=== PATIENT | male | born 1960 | race Caucasian/White ===

== ENCOUNTER → 2016-06-24 | Outpatient (CLI) | payer OTHER ==
[~2016-06-24] MED LIST: AMARYL4 MG PO; ASPIR 8181 M1 PO; CALCIUM CITRAT1 EA14 PO; CELEXA40 MG PO; CENTRUM COMPLE1 EACH PO; DULCOLAX5 MG PO; FIBER THERAPY0.52 GM PO; FLEXERIL10 MG PO; HUMALOG100 UNIT/1 SC; HUMULIN N100 UNITS/ SC; HYDROCHLOROTHIA25 MG PO; KEFLEX500 MG PO; LANTUS 10100 UNITS/ SC; LIPITOR40 MG PO; LISINOPRIL20 MG PO; LYRICA25 MG PO; LYRICA75 MG PO; MORPHINE SULFAT15 M1 PO; NASONEX17 GM BOTH NARES; NORVASC2.5 MG PO; OMEPRAZOLE40 M1 PO; OXYCODONE HCL10 MG PO; PERCOCET 7.51 TABLET PO; SIMVASTATIN40 MG PO
== END | disposition home or self-care (01) ==
LOC: CDC 09:57
DX: R94.31 Abnormal electrocardiogram [ECG] [EKG] (principal); R00.0 Tachycardia, unspecified
CPT/HCPCS: 93000

== ENCOUNTER 2016-08-04 16:42 | Emergency (ER) | payer OTHER ==
[~2016-08-04] VITALS: Ht 188 cm; Wt 103.8 kg
[2016-08-04 17:20] LABS: EOSINOPHIL (%) 3.7 % (0-5); EOSINOPHIL COUNT 0.2 K/uL (0-0.3); HEMATOCRIT 35.1 % (38.0-50.0); IMMATURE GRANULOCYTE (%) 0.2 % (0.0-0.7); IMMATURE GRANULOCYTE COUNT 0.1 K/uL; LYMPHOCYTE COUNT 1.1 K/uL (1.0-2.8); MCHC 35.6 G/DL (30.0-36.0); MCV 84.2 FL (86-99); MONOCYTE (%) 10.8 % (3-12); MONOCYTE COUNT 0.6 K/uL (0-0.8); NEUTROPHIL (%) 64.1 % (45-76); NEUTROPHIL COUNT 3.3 K/uL (1.8-6.4); PLATELET COUNT 130 K/uL (156-360); RBC DIS.WIDTH-CV 12.8 % (11.8-14.6); RBC DIS.WIDTH-SD 38.5 % (39-53); RED BLOOD COUNT 4.17 M/uL (4.00-5.50); WHITE BLOOD COUNT 5.2 K/uL (4.1-10.2)
[2016-08-04 18:32] LABS: ADD MIUA? YES; BILIRUBIN NEGATIVE; BLOOD SMALL; COLOR YELLOW ((YELLOW)); GLUCOSE (STRIP) >=500; KETONES NEGATIVE; LEUKOCYTES NEGATIVE; NITRITE NEGATIVE; PROTEIN (STRIP) >=500; SPECIFIC GRAVITY 1.018 (1.000-1.030); UROBILINOGEN 0.2 MG/DL (0.2-1.0)
[2016-08-04 18:37] LABS: BACTERIA NONE SEEN /HPF; EPITHELIAL CELLS NONE SEEN /HPF; MUCUS TRACE /LPF; RED BLOOD CELLS 0-5 /HPF (0-5); UCUL ADDED? NO; WHITE BLOOD CELLS 0-5 /HPF (0-5)
[2016-08-04 18:40] LABS: CHLORIDE 105 mEq/L (99-109); POTASSIUM 5.1 mEq/L (3.7-5.4); SODIUM 136 mEq/L (136-147)
[2016-08-04 18:42] LABS: GLUCOSE 352 mg/dL (70-99)
[2016-08-04 18:43] LABS: ANION GAP 8 MEQ/L (2-14)
[2016-08-04 18:44] LABS: TOTAL BILIRUBIN 0.3 mg/dL (0.0-1.0)
[2016-08-04 18:46] LABS: ALKALINE PHOSPHATASE 49 IU/L (3-129); GFR ESTIMATE (CALCULATED) 33 mL/min/
[2016-08-04 18:47] LABS: UREA NITROGEN (BUN) 37 mg/dL (9-23)
[2016-08-04 20:50] LABS: POINT-OF-CARE METER ID UU14100415
[2016-08-04 20:54] LABS: CHLORIDE 107 mEq/L (99-109); POTASSIUM 4.8 mEq/L (3.7-5.4); SODIUM 137 mEq/L (136-147)
[2016-08-04 20:55] LABS: GLUCOSE 247 mg/dL (70-99)
[2016-08-04 20:57] LABS: ANION GAP 7 MEQ/L (2-14)
[2016-08-04 20:59] LABS: GFR ESTIMATE (CALCULATED) 39 mL/min/
[2016-08-04 21:00] LABS: UREA NITROGEN (BUN) 37 mg/dL (9-23)
[2016-08-04 22:05] VITALS: BP 147/91
[2016-08-05 08:06] LABS: POINT-OF-CARE METER ID UU14100415
== END 2016-08-04 22:08 | disposition home or self-care (01) ==
LOC: EME 16:42
PROVIDERS: Physician Assistant
DX: E10.65 Type 1 diabetes mellitus with hyperglycemia (principal); N28.9 Disorder of kidney and ureter, unspecified; R80.9 Proteinuria, unspecified; Z79.4 Long term (current) use of insulin; E78.5 Hyperlipidemia, unspecified; I10 Essential (primary) hypertension
CPT/HCPCS: 80048 91; 80053; 81003; 82010; 82948; 85025 91; 99281; 99284; J7030; J7120

== ENCOUNTER 2016-10-16 05:34 | Inpatient (IN) | payer OTHER ==
[~2016-10-16] VITALS: Ht 188 cm; Wt 95.0 kg
[~2016-10-16 05:34] MED LIST changes: +METOPROLOL SUCC25 MG PO; +OMEPRAZOLE20 MG PO; +PRINIVIL10 MG PO; +VITAMIN D5000 UNI1 PO
[2016-10-16 06:18] VITALS: BP 159/83
[2016-10-16 06:28] LABS: HEMATOCRIT 34.2 % (38.0-50.0); MCHC 33.9 G/DL (30.0-36.0); MCV 88.4 FL (86-99); MEAN PLAT.VOLUME 10.5 uM^3 (9.0-12.4); PLATELET COUNT 94 K/uL (156-360); RBC DIS.WIDTH-CV 13.3 % (11.8-14.6); RBC DIS.WIDTH-SD 43.7 % (39-53); RED BLOOD COUNT 3.87 M/uL (4.00-5.50); WHITE BLOOD COUNT 5.2 K/uL (4.1-10.2)
[2016-10-16 06:37] LABS: CHLORIDE 105 mEq/L (99-109); POTASSIUM 5.3 mEq/L (3.7-5.4); SODIUM 138 mEq/L (136-147)
[2016-10-16 06:40] LABS: ANION GAP 8 MEQ/L (2-14)
[2016-10-16 06:43] LABS: GFR ESTIMATE (CALCULATED) 41 mL/min/; UREA NITROGEN (BUN) 46 mg/dL (9-23)
[2016-10-16 06:51] LABS: GLUCOSE 437 mg/dL (70-99)
[2016-10-16 08:46] LABS: Estimated Average Glucose 301 mg/dL (70-123)
[2016-10-16 08:59] LABS: POINT-OF-CARE METER ID UU14174212; POINT-OF-CARE USER ID AHSRSCSLC11
[2016-10-16 09:26] LABS: HEMOGLOBIN A1c (GLYCOHEMOGLOB) 12.1 % HGB (Below 5.7)
[2016-10-16 11:15] LABS: POINT-OF-CARE METER ID UU13113655
[2016-10-16 11:24] LABS: POINT-OF-CARE METER ID UU14174212; POINT-OF-CARE USER ID AHSRSCSLC11
[2016-10-16 11:39] LABS: POINT-OF-CARE METER ID UU13113655; POINT-OF-CARE USER ID ENVKLS06
[2016-10-16 11:59] LABS: POINT-OF-CARE METER ID UU13113675
[2016-10-16 13:09] LABS: POINT-OF-CARE METER ID UU13113675
[2016-10-16 13:21] LABS: HEMATOCRIT 30.1 % (38.0-50.0); MCH 30.9 PG (29.0-34.0); MCHC 34.2 G/DL (30.0-36.0); MCV 90.4 FL (86-99); MEAN PLAT.VOLUME 10.3 uM^3 (9.0-12.4); PLATELET COUNT 76 K/uL (156-360); RBC DIS.WIDTH-CV 13.6 % (11.8-14.6); RBC DIS.WIDTH-SD 45.1 % (39-53); RED BLOOD COUNT 3.33 M/uL (4.00-5.50); WHITE BLOOD COUNT 4.9 K/uL (4.1-10.2)
[2016-10-16 14:00] VITALS: BP 107/69
[2016-10-16 15:35] VITALS: BP 113/66
[2016-10-16 16:23] LABS: POINT-OF-CARE METER ID UU14162508
[2016-10-16 19:42] VITALS: BP 109/65
[2016-10-16 23:55] VITALS: BP 105/62
[2016-10-16 23:57] LABS: POINT-OF-CARE METER ID UU14162508
[2016-10-17 06:01] LABS: POINT-OF-CARE METER ID UU14162508
[2016-10-17 06:59] LABS: HEMATOCRIT 31.5 % (38.0-50.0); MCH 30.5 PG (29.0-34.0); MCHC 33.7 G/DL (30.0-36.0); MCV 90.5 FL (86-99); MEAN PLAT.VOLUME 11.3 uM^3 (9.0-12.4); PLATELET COUNT 65 K/uL (156-360); RBC DIS.WIDTH-CV 13.8 % (11.8-14.6); RBC DIS.WIDTH-SD 45.4 % (39-53); RED BLOOD COUNT 3.48 M/uL (4.00-5.50)
[2016-10-17 07:53] LABS: ANION GAP 8 MEQ/L (2-14); CHLORIDE 106 MEQ/L (99-109); GFR ESTIMATE (CALCULATED) 47 mL/min/; GLUCOSE 348 mg/dL (70-99); MAGNESIUM 1.6 mg/dl (1.3-2.7); POTASSIUM 5.3 MEQ/L (3.7-5.4); SAMPLE HEMOLYSIS CHECK 0; SAMPLE ICTERIC CHECK 0; SAMPLE LIPEMIA CHECK 0; SODIUM 137 MEQ/L (136-147); UREA NITROGEN (BUN) 37 mg/dL (9-23)
[2016-10-17 08:00] VITALS: BP 178/91
[2016-10-17 12:25] VITALS: BP 159/82
[2016-10-17 15:40] VITALS: BP 156/91
[2016-10-17 18:02] LABS: POINT-OF-CARE METER ID UU14162508
[2016-10-17 19:42] VITALS: BP 168/84
[2016-10-17 23:23] VITALS: BP 123/73
[2016-10-18 03:21] VITALS: BP 143/79
[2016-10-18 07:02] VITALS: BP 126/79
[2016-10-18 07:33] LABS: HEMATOCRIT 28.7 % (38.0-50.0); MCH 30.9 PG (29.0-34.0); MCHC 33.8 G/DL (30.0-36.0); MCV 91.4 FL (86-99); MEAN PLAT.VOLUME 10.8 uM^3 (9.0-12.4); PLATELET COUNT 67 K/uL (156-360); RBC DIS.WIDTH-CV 13.7 % (11.8-14.6); RBC DIS.WIDTH-SD 46.1 % (39-53); RED BLOOD COUNT 3.14 M/uL (4.00-5.50); WHITE BLOOD COUNT 7.1 K/uL (4.1-10.2)
[2016-10-18 07:58] LABS: ANION GAP 6 MEQ/L (2-14); CHLORIDE 107 MEQ/L (99-109); GFR ESTIMATE (CALCULATED) > 59 mL/min/; GLUCOSE 267 mg/dL (70-99); MAGNESIUM 1.8 mg/dl (1.3-2.7); POTASSIUM 4.6 MEQ/L (3.7-5.4); SAMPLE HEMOLYSIS CHECK 0; SAMPLE ICTERIC CHECK 0; SAMPLE LIPEMIA CHECK 0; SODIUM 137 MEQ/L (136-147); UREA NITROGEN (BUN) 29 mg/dL (9-23)
[2016-10-18 11:44] VITALS: BP 125/76
[2016-10-18 11:53] LABS: C DIFF TOXIN POSITIVE (NEGATIVE)
[2016-10-18 12:02] LABS: PROBE CHECK PASS
[2016-10-18 16:12] VITALS: BP 34/80
[2016-10-18 18:03] LABS: POINT-OF-CARE METER ID UU14162508
[2016-10-18 19:34] VITALS: BP 142/78
[2016-10-18 22:24] LABS: POINT-OF-CARE METER ID UU14162508
[2016-10-18 22:55] VITALS: BP 150/86
[2016-10-19 03:04] VITALS: BP 152/82
[2016-10-19 06:22] LABS: POINT-OF-CARE METER ID UU14162508
[2016-10-19 07:55] VITALS: BP 164/96
[2016-10-19] MEDS ORDERED: ERGOCALCIF50000 UNIT PO (09:45)
[2016-10-19 11:45] LABS: POINT-OF-CARE METER ID UU14162508
[2016-10-19 14:58] LABS: POINT-OF-CARE METER ID UU14162508
[2016-10-19 17:19] LABS: POINT-OF-CARE METER ID UU14162508
[2016-10-19 19:15] VITALS: BP 130/78
[2016-10-19 22:56] VITALS: BP 152/86
[2016-10-20 06:02] LABS: POINT-OF-CARE METER ID UU14162508
[2016-10-20 07:31] LABS: HEMATOCRIT 31.5 % (38.0-50.0); MCH 31.1 PG (29.0-34.0); MCHC 34.9 G/DL (30.0-36.0); MEAN PLAT.VOLUME 10.3 uM^3 (9.0-12.4); RBC DIS.WIDTH-CV 13.1 % (11.8-14.6); RBC DIS.WIDTH-SD 42.8 % (39-53); RED BLOOD COUNT 3.54 M/uL (4.00-5.50)
[2016-10-20 07:32] LABS: PLATELET COUNT 130 K/uL (156-360); WHITE BLOOD COUNT 10.5 K/uL (4.1-10.2)
[2016-10-20 07:44] LABS: ANION GAP 9 MEQ/L (2-14); CHLORIDE 101 MEQ/L (99-109); GFR ESTIMATE (CALCULATED) > 59 mL/min/; GLUCOSE 238 mg/dL (70-99); POTASSIUM 4.2 MEQ/L (3.7-5.4); SAMPLE HEMOLYSIS CHECK 0; SAMPLE ICTERIC CHECK 0; SAMPLE LIPEMIA CHECK 0; SODIUM 133 MEQ/L (136-147); UREA NITROGEN (BUN) 23 mg/dL (9-23)
[2016-10-20 08:10] VITALS: BP 140/62
[2016-10-20 16:53] VITALS: BP 136/66
[2016-10-20 17:26] LABS: POINT-OF-CARE METER ID UU14162508
[2016-10-20 21:30] LABS: POINT-OF-CARE METER ID UU14162508
[2016-10-21 00:05] VITALS: BP 136/82
[2016-10-21 07:13] LABS: HEMATOCRIT 29.2 % (38.0-50.0); MCH 30.5 PG (29.0-34.0); MCHC 34.6 G/DL (30.0-36.0); MCV 88.2 FL (86-99); MEAN PLAT.VOLUME 9.8 uM^3 (9.0-12.4); PLATELET COUNT 120 K/uL (156-360); RBC DIS.WIDTH-CV 13.1 % (11.8-14.6); RBC DIS.WIDTH-SD 42.4 % (39-53); RED BLOOD COUNT 3.31 M/uL (4.00-5.50)
[2016-10-21 07:32] LABS: POINT-OF-CARE METER ID UU14162508
[2016-10-21 07:34] LABS: ANION GAP 7 MEQ/L (2-14); CHLORIDE 103 MEQ/L (99-109); GFR ESTIMATE (CALCULATED) > 59 mL/min/; GLUCOSE 193 mg/dL (70-99); POTASSIUM 4.2 MEQ/L (3.7-5.4); SAMPLE HEMOLYSIS CHECK 0; SAMPLE ICTERIC CHECK 0; SAMPLE LIPEMIA CHECK 0; SODIUM 132 MEQ/L (136-147); UREA NITROGEN (BUN) 23 mg/dL (9-23)
[2016-10-21 07:37] LABS: WHITE BLOOD COUNT 6.8 K/uL (4.1-10.2)
[2016-10-21 08:10] VITALS: BP 134/80
[2016-10-21] MEDS ORDERED: CHOLESTYRAMINE P4 GM PO (11:29)
[2016-10-21] MEDS ORDERED: FLORASTOR250 MG PO (11:29)
[2016-10-21] MEDS ORDERED: VANCOCIN 250 M250 MG PO (11:29)
[2016-10-21 11:54] LABS: POINT-OF-CARE METER ID UU14162508
== END 2016-10-21 12:16 | disposition home or self-care (01) | DRG 330 ==
LOC: 2SOUTH 05:34 → 2EAST 13:49 → 2SOUTH 14:42 → SDC 15:24 → EDSTATUS 15:25 → 2SOUTH 15:27 → 2EAST 10-21 12:16
PROVIDERS: Anesthesiology; Physician Assistant; Surgery
DX: C18.2 Malignant neoplasm of ascending colon (principal); A04.7 Enterocolitis due to Clostridium difficile; D69.6 Thrombocytopenia, unspecified; E11.65 Type 2 diabetes mellitus with hyperglycemia; K74.60 Unspecified cirrhosis of liver; N28.9 Disorder of kidney and ureter, unspecified; M25.511 Pain in right shoulder; I10 Essential (primary) hypertension; B18.2 Chronic viral hepatitis C; Z87.39 Personal history of other diseases of the musculoskeletal system and connective tissue; Z86.19 Personal history of other infectious and parasitic diseases
CPT/HCPCS: 80048; 82378; 82948; 83036; 83735; 84100; 84999; 85027; 86900; 86901; 86920; 87493; 88309; J0131; J0330; J1100; J1170; J1335; J1815; J2250; J2405; J2710; J3010; J7030; J7050; J7120; P9016; P9045; S0020; S0028

== ENCOUNTER 2016-11-08 17:55 | Inpatient (IN) | payer OTHER ==
[~2016-11-08] VITALS: Ht 188 cm; Wt 114.1 kg
[~2016-11-08 17:55] MED LIST changes: +CHOLESTYRAMINE P4 GM PO; +ERGOCALCIF50000 UNIT PO; +FLORASTOR250 MG PO; +VANCOCIN 250 M250 MG PO
[2016-11-08 18:38] LABS: MCH 28.9 PG (29.0-34.0); MCHC 31.6 G/DL (30.0-36.0); MCV 91.4 FL (86-99); MEAN PLAT.VOLUME 10.6 uM^3 (9.0-12.4); RBC DIS.WIDTH-CV 15.7 % (11.8-14.6); RBC DIS.WIDTH-SD 51.7 % (39-53)
[2016-11-08 18:46] LABS: BASE EXCESS -10.9 mEq/L (-3 to +3); BICARBONATE 13.7 mEq/L (22-26); COMMENTS - BLOOD GASES C+; METHEMOGLOBIN 1.2 % (0-1.5); MODE RA; PCO2 26 mm Hg (35-45); PO2 68 mm Hg (80-100); SITE RB; pH 7.33 (7.35-7.45)
[2016-11-08 18:47] LABS: TOTAL RESP RATE 30 resp/min
[2016-11-08 18:49] LABS: PLATELET COUNT 359 K/uL (156-360); WHITE BLOOD COUNT 13.8 K/uL (4.1-10.2)
[2016-11-08 18:55] LABS: INTER. NORMALIZED RATIO 1.2; PROTHROMBIN TIME 12.6 (9.2-11.2); PTT 28.6 (25-32)
[2016-11-08 19:04] LABS: TROP-I INTERPRETATION NEGATIVE; TROPONIN-I 0.02 ng/mL (0.0-0.30)
[2016-11-08 19:23] LABS: LIPASE 702 U/L (1.0-51.0)
[2016-11-08 20:31] LABS: EOSINOPHIL (%) 0 % (0-5); HEMATOLOGY COMMENT 1 SN; IMMATURE GRANULOCYTE (%) 1.2 % (0.0-0.7); IMMATURE GRANULOCYTE COUNT 0.2 K/uL; INSTRUMENT ABS NEUTROPHIL CT 12.6 K/uL; LYMPHOCYTE COUNT 0.4 K/uL (1.0-2.8); MONOCYTE (%) 4.7 % (3-12); MONOCYTE COUNT 0.7 K/uL (0-0.8); NEUTROPHIL (%) 91.2 % (45-76); NEUTROPHIL COUNT 12.6 K/uL (1.8-6.4); PLAT.SUFFICIENCY ADEQUATE
[2016-11-08 21:39] LABS: CHLORIDE 86 mEq/L (99-109)
[2016-11-08 21:40] LABS: SODIUM 120 mEq/L (136-147)
[2016-11-08 21:43] LABS: ANION GAP 20 MEQ/L (2-14)
[2016-11-08 21:45] LABS: ALKALINE PHOSPHATASE 88 IU/L (3-129); GFR ESTIMATE (CALCULATED) 20 mL/min/
[2016-11-08 21:47] LABS: UREA NITROGEN (BUN) 78 mg/dL (9-23)
[2016-11-08 21:52] LABS: GLUCOSE 817 mg/dL (70-99); POTASSIUM 6.5 mEq/L (3.7-5.4)
[2016-11-08 22:06] LABS: HEMATOCRIT 28.6 % (38.0-50.0); MCHC 31.8 G/DL (30.0-36.0); MCV 91.1 FL (86-99); MEAN PLAT.VOLUME 10.6 uM^3 (9.0-12.4); PLATELET COUNT 313 K/uL (156-360); RBC DIS.WIDTH-CV 15.5 % (11.8-14.6); RBC DIS.WIDTH-SD 50.8 % (39-53); RED BLOOD COUNT 3.14 M/uL (4.00-5.50); WHITE BLOOD COUNT 14.6 K/uL (4.1-10.2)
[2016-11-08 22:15] LABS: CHLORIDE 94 mEq/L (99-109); SODIUM 122 mEq/L (136-147)
[2016-11-08 22:18] LABS: ANION GAP 14 MEQ/L (2-14)
[2016-11-08 22:21] LABS: GFR ESTIMATE (CALCULATED) 22 mL/min/; UREA NITROGEN (BUN) 69 mg/dL (9-23)
[2016-11-08 22:28] LABS: TROP-I INTERPRETATION NEGATIVE; TROPONIN-I 0.01 ng/mL (0.0-0.30)
[2016-11-08 22:30] VITALS: BP 100/40
[2016-11-08 22:30] LABS: GLUCOSE 707 mg/dL (70-99)
[2016-11-08 22:31] LABS: POTASSIUM 6.4 mEq/L (3.7-5.4)
[2016-11-08 22:41] LABS: MAGNESIUM 2.2 mg/dL (1.3-2.7)
[2016-11-08 23:00] VITALS: BP 88/44
[2016-11-09] VITALS (12 sets, daily range): BP systolic 85–159; BP diastolic 44–56
[2016-11-09 01:11] LABS: METH RESISTANT S AUREUS PCR NEGATIVE (NEGATIVE)
[2016-11-09 01:28] LABS: PROBE CHECK PASS; SPECIMEN PROCESSING CONTROL PASS
[2016-11-09 03:01] LABS: CHLORIDE 94 mEq/L (99-109); SODIUM 125 mEq/L (136-147)
[2016-11-09 03:05] LABS: ANION GAP 16 MEQ/L (2-14)
[2016-11-09 03:07] LABS: GFR ESTIMATE (CALCULATED) 24 mL/min/
[2016-11-09 03:08] LABS: UREA NITROGEN (BUN) 73 mg/dL (9-23)
[2016-11-09 03:57] LABS: POTASSIUM 6.4 mEq/L (3.7-5.4)
[2016-11-09 03:59] LABS: GLUCOSE 799 mg/dL (70-99)
[2016-11-09 06:30] LABS: TROP-I INTERPRETATION NEGATIVE; TROPONIN-I 0.03 ng/mL (0.0-0.30)
[2016-11-09 06:44] LABS: HEMATOCRIT 21.5 % (38.0-50.0); MCH 29.9 PG (29.0-34.0); MCHC 33.5 G/DL (30.0-36.0); MCV 89.2 FL (86-99); MEAN PLAT.VOLUME 10.1 uM^3 (9.0-12.4); PLATELET COUNT 302 K/uL (156-360); RBC DIS.WIDTH-SD 48.6 % (39-53); WHITE BLOOD COUNT 12.3 K/uL (4.1-10.2)
[2016-11-09 06:48] LABS: RED BLOOD COUNT 2.41 M/uL (4.00-5.50)
[2016-11-09 07:32] LABS: ANION GAP 11 MEQ/L (2-14); CHLORIDE 95 MEQ/L (99-109); MAGNESIUM 2.2 mg/dl (1.3-2.7); SAMPLE HEMOLYSIS CHECK 0; SAMPLE ICTERIC CHECK 0; SAMPLE LIPEMIA CHECK 0; SODIUM 128 MEQ/L (136-147); UREA NITROGEN (BUN) 67 mg/dL (9-23)
[2016-11-09 07:33] LABS: GFR ESTIMATE (CALCULATED) 30 mL/min/; GLUCOSE 605 mg/dL (70-99); POTASSIUM 5.1 MEQ/L (3.7-5.4)
[2016-11-09 11:07] LABS: ANION GAP 8 MEQ/L (2-14); CHLORIDE 96 MEQ/L (99-109); GFR ESTIMATE (CALCULATED) 33 mL/min/; POTASSIUM 4.6 MEQ/L (3.7-5.4); SAMPLE HEMOLYSIS CHECK 0; SAMPLE ICTERIC CHECK 0; SAMPLE LIPEMIA CHECK 0; SODIUM 130 MEQ/L (136-147); UREA NITROGEN (BUN) 63 mg/dL (9-23)
[2016-11-09 11:14] LABS: GLUCOSE 519 mg/dL (70-99)
[2016-11-09 13:53] LABS: POINT-OF-CARE METER ID UU13113803
[2016-11-09 14:06] LABS: TROP-I INTERPRETATION NEGATIVE; TROPONIN-I 0.12 ng/mL (0.0-0.30)
[2016-11-09 14:27] LABS: HEMATOCRIT 20.9 % (38.0-50.0); MCV 88.9 FL (86-99)
[2016-11-09 14:48] LABS: POINT-OF-CARE METER ID UU13113803
[2016-11-09 14:51] LABS: POINT-OF-CARE METER ID UU13113803
[2016-11-09 14:51] LABS: POINT-OF-CARE METER ID UU13113803; POINT-OF-CARE USER ID 606021424
[2016-11-09 14:51] LABS: POINT-OF-CARE METER ID UU13113803
[2016-11-09 14:51] LABS: POINT-OF-CARE METER ID UU13113803
[2016-11-09 14:51] LABS: POINT-OF-CARE METER ID UU13113803
[2016-11-09 15:21] LABS: ANION GAP 12 MEQ/L (2-14); CHLORIDE 97 MEQ/L (99-109); GFR ESTIMATE (CALCULATED) 37 mL/min/; GLUCOSE 364 mg/dL (70-99); POTASSIUM 4.1 MEQ/L (3.7-5.4); SAMPLE HEMOLYSIS CHECK 0; SAMPLE ICTERIC CHECK 0; SAMPLE LIPEMIA CHECK 1; SODIUM 135 MEQ/L (136-147); UREA NITROGEN (BUN) 58 mg/dL (9-23)
[2016-11-09 16:19] LABS: POINT-OF-CARE METER ID UU13113803
[2016-11-09 17:06] LABS: POINT-OF-CARE METER ID UU13113803
[2016-11-09 18:16] LABS: POINT-OF-CARE METER ID UU13113803
[2016-11-09 19:21] LABS: POINT-OF-CARE METER ID UU13113803; POINT-OF-CARE USER ID 609231305
[2016-11-09 20:17] LABS: POINT-OF-CARE METER ID UU13113803
[2016-11-09 21:15] LABS: POINT-OF-CARE METER ID UU13113803
[2016-11-09 22:46] LABS: CHLORIDE 98 mEq/L (99-109); POTASSIUM 3.6 mEq/L (3.7-5.4); SODIUM 135 mEq/L (136-147)
[2016-11-09 22:47] LABS: MAGNESIUM 1.9 mg/dL (1.3-2.7)
[2016-11-09 22:49] LABS: GLUCOSE 102 mg/dL (70-99)
[2016-11-09 22:50] LABS: ANION GAP 10 MEQ/L (2-14)
[2016-11-09 22:52] LABS: GFR ESTIMATE (CALCULATED) 39 mL/min/
[2016-11-09 22:53] LABS: UREA NITROGEN (BUN) 55 mg/dL (9-23)
[2016-11-09 22:58] LABS: TROP-I INTERPRETATION INDETERMINATE; TROPONIN-I 0.32 ng/mL (0.0-0.30)
[2016-11-09 23:18] LABS: HEMATOCRIT 23.9 % (38.0-50.0); HEMATOLOGY COMMENT 1 SN; MCH 29.2 PG (29.0-34.0); MCHC 33.9 G/DL (30.0-36.0); MCV 86.3 FL (86-99); PLAT.SUFFICIENCY ADEQUATE; PLATELET COUNT UNABLE TO REPORT K/uL (156-360); RBC DIS.WIDTH-CV 14.7 % (11.8-14.6); RBC DIS.WIDTH-SD 45.5 % (39-53); RED BLOOD COUNT 2.77 M/uL (4.00-5.50); WHITE BLOOD COUNT 9.8 K/uL (4.1-10.2)
[2016-11-10] VITALS (14 sets, daily range): BP systolic 98–138; BP diastolic 51–55
[2016-11-10 02:02] LABS: CHLORIDE 98 mEq/L (99-109); SODIUM 134 mEq/L (136-147)
[2016-11-10 02:04] LABS: GLUCOSE 140 mg/dL (70-99)
[2016-11-10 02:05] LABS: ANION GAP 9 MEQ/L (2-14)
[2016-11-10 02:08] LABS: GFR ESTIMATE (CALCULATED) 41 mL/min/
[2016-11-10 02:09] LABS: UREA NITROGEN (BUN) 54 mg/dL (9-23)
[2016-11-10 02:30] LABS: POINT-OF-CARE METER ID UU14162636
[2016-11-10 06:15] LABS: POINT-OF-CARE METER ID UU14162636
[2016-11-10 07:12] LABS: HEMATOCRIT 23.4 % (38.0-50.0); MCH 29.7 PG (29.0-34.0); MCHC 34.2 G/DL (30.0-36.0); RBC DIS.WIDTH-CV 15.3 % (11.8-14.6); RBC DIS.WIDTH-SD 48.2 % (39-53); RED BLOOD COUNT 2.69 M/uL (4.00-5.50); WHITE BLOOD COUNT 5.6 K/uL (4.1-10.2)
[2016-11-10 07:20] LABS: ALKALINE PHOSPHATASE 35 IU/L (3-129); ANION GAP 13 MEQ/L (2-14); CHLORIDE 97 MEQ/L (99-109); GFR ESTIMATE (CALCULATED) 44 mL/min/; GLUCOSE 300 mg/dL (70-99); POTASSIUM 4.6 MEQ/L (3.7-5.4); SAMPLE HEMOLYSIS CHECK 0; SAMPLE ICTERIC CHECK 0; SAMPLE LIPEMIA CHECK 0; SODIUM 135 MEQ/L (136-147); TOTAL BILIRUBIN 0.7 MG/DL (0.0-1.0); UREA NITROGEN (BUN) 51 mg/dL (9-23)
[2016-11-10 07:37] LABS: POINT-OF-CARE METER ID UU14162636
[2016-11-10 08:28] LABS: ABS NEUTROPHIL COUNT 4.9; ANISOCYTOSIS 1+; BASOPHILS 0.9 %; BURR CELLS 2+; EOSINOPHIL ABS CT 0; INSTRUMENT ABS NEUTROPHIL CT 4.8 K/uL; LYMPHOCYTES 6.2 % (15.0-45.0); MACROCYTES 1+; MEAN PLAT.VOLUME 10.1 uM^3 (9.0-12.4); PLATELET CLUMPS PRESENT - PLATELET COUNTS APPEARS DECREASED; POIKILOCYTOSIS 2+; SEG.NEUTROPHILS 56.6 % (46.0-76.0); TARGET CELLS 1+; TEAR DROP CELLS 1+
[2016-11-10 08:42] LABS: PLATELET COUNT 138 K/uL (156-360)
[2016-11-10 09:00] LABS: POINT-OF-CARE METER ID UU13113731
[2016-11-10 09:57] LABS: POINT-OF-CARE METER ID UU13113731
[2016-11-10] MEDS ORDERED: NOVOLOG 10100 UNITS/ SC (10:48)
[2016-11-10 10:51] LABS: POINT-OF-CARE METER ID UU13113731
[2016-11-10 12:09] LABS: POINT-OF-CARE METER ID UU13113731
[2016-11-10 13:05] LABS: POINT-OF-CARE METER ID UU13113731
[2016-11-10 13:50] LABS: POINT-OF-CARE METER ID UU13113731
[2016-11-10 14:53] LABS: POINT-OF-CARE METER ID UU13113731
[2016-11-10 15:48] LABS: POINT-OF-CARE METER ID UU13113731
[2016-11-10 17:00] LABS: POINT-OF-CARE METER ID UU13113731
[2016-11-10 17:58] LABS: POINT-OF-CARE METER ID UU14174217
[2016-11-10 18:40] LABS: POINT-OF-CARE METER ID UU14174217
[2016-11-10 20:01] LABS: POINT-OF-CARE METER ID UU13113731
[2016-11-10 21:12] LABS: POINT-OF-CARE METER ID UU14174217
[2016-11-10 22:09] LABS: POINT-OF-CARE METER ID UU13113731
[2016-11-10 23:08] LABS: POINT-OF-CARE METER ID UU13113731
[2016-11-11 00:18] LABS: POINT-OF-CARE METER ID UU13113731
[2016-11-11 01:47] LABS: POINT-OF-CARE METER ID UU14174217
[2016-11-11 02:01] LABS: POINT-OF-CARE METER ID UU14174217
[2016-11-11 03:16] LABS: POINT-OF-CARE METER ID UU14174217
[2016-11-11 04:16] LABS: POINT-OF-CARE METER ID UU14174217
[2016-11-11 05:09] LABS: POINT-OF-CARE METER ID UU14174217
[2016-11-11 05:13] LABS: CHLORIDE 102 mEq/L (99-109); MAGNESIUM 1.9 mg/dL (1.3-2.7); POTASSIUM 3.9 mEq/L (3.7-5.4); SODIUM 138 mEq/L (136-147)
[2016-11-11 05:15] LABS: GLUCOSE 180 mg/dL (70-99)
[2016-11-11 05:16] LABS: ANION GAP 11 MEQ/L (2-14)
[2016-11-11 05:17] LABS: TOTAL BILIRUBIN 0.9 mg/dL (0.0-1.0)
[2016-11-11 05:19] LABS: GFR ESTIMATE (CALCULATED) 41 mL/min/
[2016-11-11 05:20] LABS: UREA NITROGEN (BUN) 52 mg/dL (9-23)
[2016-11-11 05:22] LABS: ALKALINE PHOSPHATASE 35 IU/L (3-129)
[2016-11-11 06:18] LABS: POINT-OF-CARE METER ID UU14174217
[2016-11-11 06:18] LABS: MCH 28.3 PG (29.0-34.0); MEAN PLAT.VOLUME 9.7 uM^3 (9.0-12.4); PLATELET COUNT 125 K/uL (156-360); RBC DIS.WIDTH-CV 15.6 % (11.8-14.6); RBC DIS.WIDTH-SD 48.4 % (39-53); RED BLOOD COUNT 3.14 M/uL (4.00-5.50); WHITE BLOOD COUNT 4.5 K/uL (4.1-10.2)
[2016-11-11 06:28] LABS: ABS NEUTROPHIL COUNT 4.1; ANISOCYTOSIS 1+; BURR CELLS 2+; EOSINOPHIL ABS CT 0; INSTRUMENT ABS NEUTROPHIL CT 3.9 K/uL; MACROCYTES 1+; PLAT.SUFFICIENCY ADEQUATE; POIKILOCYTOSIS 1+
[2016-11-11 08:44] LABS: POINT-OF-CARE METER ID UU13113803
[2016-11-11 11:09] LABS: POINT-OF-CARE METER ID UU13113803
[2016-11-11 12:07] LABS: POINT-OF-CARE METER ID UU13113803
[2016-11-11 13:19] LABS: POINT-OF-CARE METER ID UU13113803
[2016-11-11 14:06] LABS: POINT-OF-CARE METER ID UU13113803
[2016-11-11 15:16] LABS: POINT-OF-CARE METER ID UU13113803
[2016-11-11 16:33] LABS: POINT-OF-CARE METER ID UU13113803
[2016-11-11 17:30] LABS: POINT-OF-CARE METER ID UU14174217
[2016-11-11 19:30] VITALS: BP 111/62
[2016-11-11 19:40] VITALS: BP 111/62
[2016-11-11 20:24] LABS: POINT-OF-CARE METER ID UU13113803
[2016-11-12] VITALS (7 sets, daily range): BP systolic 106–126; BP diastolic 62–71
[2016-11-12 00:50] LABS: POINT-OF-CARE METER ID UU13113803
[2016-11-12 05:44] LABS: POINT-OF-CARE METER ID UU14174217
[2016-11-12 06:05] LABS: ALKALINE PHOSPHATASE 39 IU/L (3-129); ANION GAP 10 MEQ/L (2-14); CHLORIDE 104 MEQ/L (99-109); GFR ESTIMATE (CALCULATED) 47 mL/min/; GLUCOSE 217 mg/dL (70-99); POTASSIUM 4.3 MEQ/L (3.7-5.4); SAMPLE HEMOLYSIS CHECK 0; SAMPLE ICTERIC CHECK 0; SAMPLE LIPEMIA CHECK 0; SODIUM 139 MEQ/L (136-147); TOTAL BILIRUBIN 0.6 MG/DL (0.0-1.0); UREA NITROGEN (BUN) 51 mg/dL (9-23)
[2016-11-12 06:06] LABS: MAGNESIUM 2.4 mg/dl (1.3-2.7)
[2016-11-12 06:14] LABS: HEMATOCRIT 29.9 % (38.0-50.0); MCH 28.8 PG (29.0-34.0); MCHC 32.4 G/DL (30.0-36.0); MCV 88.7 FL (86-99); MEAN PLAT.VOLUME 10.3 uM^3 (9.0-12.4); PLATELET COUNT 135 K/uL (156-360); RBC DIS.WIDTH-CV 16.3 % (11.8-14.6); RED BLOOD COUNT 3.37 M/uL (4.00-5.50); WHITE BLOOD COUNT 6.8 K/uL (4.1-10.2)
[2016-11-12 06:34] LABS: INTER. NORMALIZED RATIO 1.1; PROTHROMBIN TIME 11.4 (9.2-11.2); PTT 28.8 (25-32)
[2016-11-12 07:33] LABS: EOSINOPHIL (%) 0 % (0-5); IMMATURE GRANULOCYTE COUNT 0.1 K/uL; INSTRUMENT ABS NEUTROPHIL CT 5.8 K/uL; LYMPHOCYTE COUNT 0.3 K/uL (1.0-2.8); MONOCYTE (%) 8.1 % (3-12); MONOCYTE COUNT 0.6 K/uL (0-0.8); NEUTROPHIL (%) 86.3 % (45-76); NEUTROPHIL COUNT 5.8 K/uL (1.8-6.4)
[2016-11-12 12:14] LABS: POINT-OF-CARE METER ID UU13113803
[2016-11-12 18:30] LABS: POINT-OF-CARE METER ID UU13113803
[2016-11-12 22:14] LABS: POINT-OF-CARE METER ID UU13113803
[2016-11-13 00:30] LABS: POINT-OF-CARE METER ID UU13113803
[2016-11-13 05:24] LABS: POINT-OF-CARE METER ID UU14162636
[2016-11-13 05:42] LABS: HEMATOCRIT 27.6 % (38.0-50.0); MCH 30.1 PG (29.0-34.0); MCV 91.4 FL (86-99); MEAN PLAT.VOLUME 10.2 uM^3 (9.0-12.4); PLATELET COUNT 123 K/uL (156-360); RBC DIS.WIDTH-CV 16.5 % (11.8-14.6); RBC DIS.WIDTH-SD 55.1 % (39-53); RED BLOOD COUNT 3.02 M/uL (4.00-5.50); WHITE BLOOD COUNT 5.3 K/uL (4.1-10.2)
[2016-11-13 06:50] LABS: ALKALINE PHOSPHATASE 38 IU/L (3-129); ANION GAP 6 MEQ/L (2-14); CHLORIDE 110 MEQ/L (99-109); GFR ESTIMATE (CALCULATED) 55 mL/min/; MAGNESIUM 2.4 mg/dl (1.3-2.7); POTASSIUM 3.8 MEQ/L (3.7-5.4); SAMPLE HEMOLYSIS CHECK 0; SAMPLE ICTERIC CHECK 0; SAMPLE LIPEMIA CHECK 0; SODIUM 143 MEQ/L (136-147); TOTAL BILIRUBIN 0.6 MG/DL (0.0-1.0); UREA NITROGEN (BUN) 44 mg/dL (9-23)
[2016-11-13 06:54] LABS: GLUCOSE 67 mg/dL (70-99)
[2016-11-13 08:51] LABS: POINT-OF-CARE METER ID UU14162636
[2016-11-13 09:00] VITALS: BP 138/76
[2016-11-13 09:56] LABS: PREALBUMIN 6.8 mg/dL (10-40)
[2016-11-13 10:00] VITALS: BP 138/76
[2016-11-13 11:00] VITALS: BP 140/78
[2016-11-13 11:37] LABS: POINT-OF-CARE METER ID UU14162636
[2016-11-13 12:00] VITALS: BP 140/78
[2016-11-14 05:47] LABS: HEMATOCRIT 30.1 % (38.0-50.0); MCH 29.3 PG (29.0-34.0); MCHC 31.9 G/DL (30.0-36.0); MCV 91.8 FL (86-99); MEAN PLAT.VOLUME 10.1 uM^3 (9.0-12.4); PLATELET COUNT 114 K/uL (156-360); RBC DIS.WIDTH-CV 16.6 % (11.8-14.6); RBC DIS.WIDTH-SD 56.2 % (39-53); RED BLOOD COUNT 3.28 M/uL (4.00-5.50); WHITE BLOOD COUNT 5.8 K/uL (4.1-10.2)
[2016-11-14 06:37] LABS: ALKALINE PHOSPHATASE 45 IU/L (3-129); ANION GAP 13 MEQ/L (2-14); CHLORIDE 107 MEQ/L (99-109); GFR ESTIMATE (CALCULATED) > 59 mL/min/; MAGNESIUM 2.3 mg/dl (1.3-2.7); POTASSIUM 4.4 MEQ/L (3.7-5.4); SAMPLE HEMOLYSIS CHECK 0; SAMPLE ICTERIC CHECK 0; SAMPLE LIPEMIA CHECK 0; SODIUM 140 MEQ/L (136-147); TOTAL BILIRUBIN 0.5 MG/DL (0.0-1.0); TRIGLYCERIDES 278 MG/DL (Normal: <150); UREA NITROGEN (BUN) 45 mg/dL (9-23)
[2016-11-14 06:49] LABS: GLUCOSE 306 mg/dL (70-99)
[2016-11-14 08:35] LABS: BASE EXCESS -1.4 mEq/L (-3 to +3); CARBOXY HGB 1.6 % (0-5); METHEMOGLOBIN 1.3 % (0-1.5); PCO2 34 mm Hg (35-45); pH 7.43 (7.35-7.45)
[2016-11-14 08:36] LABS: BICARBONATE 22.6 mEq/L (22-26); COMMENTS - BLOOD GASES C+; DEVICE VENT; FI02 30 %; MODE SPONT; PEEP 5 CM/H20; PO2 86 mm Hg (80-100); PRES. SUPPORT 10 CM/H2O; SITE ALINE; TOTAL RESP RATE 30 resp/min
[2016-11-14 12:00] VITALS: BP 138/74
[2016-11-14 15:55] LABS: POINT-OF-CARE METER ID UU13113748
[2016-11-14 17:50] LABS: POINT-OF-CARE METER ID UU13113748
[2016-11-14 20:54] LABS: POINT-OF-CARE METER ID UU13113748
[2016-11-14 21:15] LABS: Estimated Average Glucose 249 mg/dL (70-123); HEMOGLOBIN A1c (GLYCOHEMOGLOB) 10.3 % HGB (Below 5.7)
[2016-11-14 21:35] LABS: POINT-OF-CARE METER ID UU13113748
[2016-11-14 21:49] LABS: ANION GAP 10 MEQ/L (2-14); CHLORIDE 113 MEQ/L (99-109); GFR ESTIMATE (CALCULATED) > 59 mL/min/; GLUCOSE 299 mg/dL (70-99); POTASSIUM 3.6 MEQ/L (3.7-5.4); SAMPLE HEMOLYSIS CHECK 0; SAMPLE ICTERIC CHECK 0; SAMPLE LIPEMIA CHECK 0; SODIUM 143 MEQ/L (136-147); UREA NITROGEN (BUN) 51 mg/dL (9-23)
[2016-11-14 22:52] LABS: POINT-OF-CARE METER ID UU13113748
[2016-11-14 23:44] LABS: POINT-OF-CARE METER ID UU13113748
[2016-11-15 00:45] LABS: POINT-OF-CARE METER ID UU13113748
[2016-11-15 01:11] LABS: POTASSIUM 3.5 mEq/L (3.7-5.4); SODIUM 142 mEq/L (136-147)
[2016-11-15 01:12] LABS: CHLORIDE 114 mEq/L (99-109)
[2016-11-15 01:13] LABS: GLUCOSE 258 mg/dL (70-99)
[2016-11-15 01:14] LABS: ANION GAP 7 MEQ/L (2-14)
[2016-11-15 01:16] LABS: GFR ESTIMATE (CALCULATED) > 59 mL/min/
[2016-11-15 01:17] LABS: UREA NITROGEN (BUN) 53 mg/dL (9-23)
[2016-11-15 01:30] VITALS: BP 138/74
[2016-11-15 02:02] LABS: POINT-OF-CARE METER ID UU13113748
[2016-11-15 02:59] LABS: POINT-OF-CARE METER ID UU13113748
[2016-11-15 03:59] LABS: POINT-OF-CARE METER ID UU13113748
[2016-11-15 04:56] LABS: POINT-OF-CARE METER ID UU13113748
[2016-11-15 05:38] LABS: HEMATOCRIT 29.6 % (38.0-50.0); MCH 28.8 PG (29.0-34.0); MCHC 31.8 G/DL (30.0-36.0); MCV 90.8 FL (86-99); MEAN PLAT.VOLUME 10.3 uM^3 (9.0-12.4); PLATELET COUNT 126 K/uL (156-360); RBC DIS.WIDTH-CV 16.2 % (11.8-14.6); RED BLOOD COUNT 3.26 M/uL (4.00-5.50); WHITE BLOOD COUNT 4.3 K/uL (4.1-10.2)
[2016-11-15 05:41] LABS: POINT-OF-CARE METER ID UU13113748
[2016-11-15 06:24] LABS: ANION GAP 5 MEQ/L (2-14); CHLORIDE 116 MEQ/L (99-109); GFR ESTIMATE (CALCULATED) > 59 mL/min/; GLUCOSE 201 mg/dL (70-99); POTASSIUM 3.6 MEQ/L (3.7-5.4); SAMPLE HEMOLYSIS CHECK 0; SAMPLE ICTERIC CHECK 0; SAMPLE LIPEMIA CHECK 0; SODIUM 146 MEQ/L (136-147); UREA NITROGEN (BUN) 51 mg/dL (9-23)
[2016-11-15 06:25] LABS: ALKALINE PHOSPHATASE 42 IU/L (3-129); ANION GAP 5 MEQ/L (2-14); CHLORIDE 116 MEQ/L (99-109); GFR ESTIMATE (CALCULATED) > 59 mL/min/; GLUCOSE 200 mg/dL (70-99); POTASSIUM 3.6 MEQ/L (3.7-5.4); SAMPLE HEMOLYSIS CHECK 0; SAMPLE ICTERIC CHECK 0; SAMPLE LIPEMIA CHECK 0; SODIUM 145 MEQ/L (136-147); TOTAL BILIRUBIN 0.4 MG/DL (0.0-1.0); UREA NITROGEN (BUN) 51 mg/dL (9-23)
[2016-11-15 06:52] LABS: POINT-OF-CARE METER ID UU13113748
[2016-11-15 07:47] LABS: POINT-OF-CARE METER ID UU13113748; POINT-OF-CARE USER ID 606021424
[2016-11-15 10:05] LABS: POINT-OF-CARE METER ID UU13113748
[2016-11-15 10:23] LABS: ANION GAP 5 MEQ/L (2-14); CHLORIDE 116 MEQ/L (99-109); GFR ESTIMATE (CALCULATED) > 59 mL/min/; GLUCOSE 157 mg/dL (70-99); MAGNESIUM 2.1 mg/dl (1.3-2.7); POTASSIUM 3.5 MEQ/L (3.7-5.4); SAMPLE HEMOLYSIS CHECK 0; SAMPLE ICTERIC CHECK 0; SAMPLE LIPEMIA CHECK 0; SODIUM 145 MEQ/L (136-147); UREA NITROGEN (BUN) 52 mg/dL (9-23)
[2016-11-15 11:03] LABS: POINT-OF-CARE METER ID UU13113748
[2016-11-15 11:28] LABS: BASE EXCESS 1.3 mEq/L (-3 to +3); BICARBONATE 23.4 mEq/L (22-26); CARBOXY HGB 1.8 % (0-5); METHEMOGLOBIN 1.9 % (0-1.5); PO2 69 mm Hg (80-100)
[2016-11-15 11:29] LABS: COMMENTS - BLOOD GASES C+; DEVICE VENT; FI02 30 %; MODE TC; PCO2 28 mm Hg (35-45); SITE ALINE; TOTAL RESP RATE 21 resp/min; pH 7.53 (7.35-7.45)
[2016-11-15 11:58] LABS: POINT-OF-CARE METER ID UU13113748
[2016-11-15 12:39] LABS: ANION GAP 9 MEQ/L (2-14); CHLORIDE 117 MEQ/L (99-109); GFR ESTIMATE (CALCULATED) > 59 mL/min/; GLUCOSE 142 mg/dL (70-99); POTASSIUM 3.7 MEQ/L (3.7-5.4); SAMPLE HEMOLYSIS CHECK 0; SAMPLE ICTERIC CHECK 0; SAMPLE LIPEMIA CHECK 0; SODIUM 146 MEQ/L (136-147); UREA NITROGEN (BUN) 50 mg/dL (9-23)
[2016-11-15 13:04] LABS: POINT-OF-CARE METER ID UU13113748
[2016-11-15 14:07] LABS: POINT-OF-CARE METER ID UU13113748
[2016-11-15 15:20] LABS: POINT-OF-CARE METER ID UU13113748
[2016-11-15 15:44] LABS: POINT-OF-CARE METER ID UU13113748
[2016-11-15 16:26] LABS: ANION GAP 5 MEQ/L (2-14); CHLORIDE 118 MEQ/L (99-109); GFR ESTIMATE (CALCULATED) > 59 mL/min/; GLUCOSE 205 mg/dL (70-99); POTASSIUM 3.7 MEQ/L (3.7-5.4); SAMPLE HEMOLYSIS CHECK 0; SAMPLE ICTERIC CHECK 0; SAMPLE LIPEMIA CHECK 0; SODIUM 145 MEQ/L (136-147); UREA NITROGEN (BUN) 52 mg/dL (9-23)
[2016-11-15 16:53] LABS: POINT-OF-CARE METER ID UU13113748
[2016-11-15 18:07] LABS: POINT-OF-CARE METER ID UU13113748
[2016-11-15 19:08] LABS: POINT-OF-CARE METER ID UU13113748; POINT-OF-CARE USER ID 606021424
[2016-11-15 20:13] LABS: POINT-OF-CARE METER ID UU13113748
[2016-11-15 21:15] LABS: POINT-OF-CARE METER ID UU13113748
[2016-11-15 21:28] LABS: ANION GAP 11 MEQ/L (2-14); CHLORIDE 116 MEQ/L (99-109); GFR ESTIMATE (CALCULATED) > 59 mL/min/; GLUCOSE 206 mg/dL (70-99); POTASSIUM 3.5 MEQ/L (3.7-5.4); SAMPLE HEMOLYSIS CHECK 0; SAMPLE ICTERIC CHECK 0; SAMPLE LIPEMIA CHECK 0; SODIUM 148 MEQ/L (136-147); UREA NITROGEN (BUN) 53 mg/dL (9-23)
[2016-11-15 22:29] LABS: POINT-OF-CARE METER ID UU13113748
[2016-11-15 23:53] LABS: POINT-OF-CARE METER ID UU13113748
[2016-11-16 00:18] LABS: POINT-OF-CARE METER ID UU13113748
[2016-11-16 01:37] LABS: POINT-OF-CARE METER ID UU13113748
[2016-11-16 02:32] LABS: POINT-OF-CARE METER ID UU13113748
[2016-11-16 04:40] LABS: POINT-OF-CARE METER ID UU13113748
[2016-11-16 05:38] LABS: HEMATOCRIT 30.1 % (38.0-50.0); MCH 29.4 PG (29.0-34.0); MCHC 32.2 G/DL (30.0-36.0); MCV 91.2 FL (86-99); RBC DIS.WIDTH-CV 16.4 % (11.8-14.6); RBC DIS.WIDTH-SD 55.1 % (39-53); WHITE BLOOD COUNT 7.1 K/uL (4.1-10.2)
[2016-11-16 05:57] LABS: EOSINOPHIL (%) 0 % (0-5); HEMATOLOGY COMMENT 1 SN; IMMATURE GRANULOCYTE (%) 1.3 % (0.0-0.7); IMMATURE GRANULOCYTE COUNT 0.1 K/uL; INSTRUMENT ABS NEUTROPHIL CT 5.8 K/uL; LYMPHOCYTE COUNT 0.5 K/uL (1.0-2.8); MEAN PLAT.VOLUME 10.8 uM^3 (9.0-12.4); MONOCYTE (%) 10.3 % (3-12); MONOCYTE COUNT 0.7 K/uL (0-0.8); NEUTROPHIL (%) 81.7 % (45-76); NEUTROPHIL COUNT 5.8 K/uL (1.8-6.4); PLATELET COUNT 145 K/uL (156-360)
[2016-11-16 06:07] LABS: ALKALINE PHOSPHATASE 45 IU/L (3-129); ANION GAP 9 MEQ/L (2-14); CHLORIDE 118 MEQ/L (99-109); DIRECT BILIRUBIN 0.1 mg/dL (0.0-0.3); GFR ESTIMATE (CALCULATED) > 59 mL/min/; GLUCOSE 150 mg/dL (70-99); POTASSIUM 3.5 MEQ/L (3.7-5.4); SAMPLE HEMOLYSIS CHECK 0; SAMPLE ICTERIC CHECK 0; SAMPLE LIPEMIA CHECK 0; SODIUM 148 MEQ/L (136-147); TOTAL BILIRUBIN 0.4 MG/DL (0.0-1.0); TRIGLYCERIDES 110 MG/DL (Normal: <150); UREA NITROGEN (BUN) 55 mg/dL (9-23)
[2016-11-16 06:34] LABS: POINT-OF-CARE METER ID UU13113748
[2016-11-16 07:28] LABS: PREALBUMIN 10.9 mg/dL (10-40)
[2016-11-16 07:49] LABS: POINT-OF-CARE METER ID UU13113748
[2016-11-16 09:00] VITALS: BP 155/81
[2016-11-16 09:00] LABS: POINT-OF-CARE METER ID UU13113748
[2016-11-16 09:57] LABS: MAGNESIUM 2.2 mg/dl (1.3-2.7)
[2016-11-16 09:58] LABS: POINT-OF-CARE METER ID UU13113748
[2016-11-16 10:51] LABS: POINT-OF-CARE METER ID UU13113748
[2016-11-16 12:06] LABS: POINT-OF-CARE METER ID UU13113748
[2016-11-16 12:08] LABS: POINT-OF-CARE METER ID UU14162636
[2016-11-16 13:00] LABS: POINT-OF-CARE METER ID UU13113731
[2016-11-16 14:12] LABS: POINT-OF-CARE METER ID UU13113748
[2016-11-16 15:14] LABS: POINT-OF-CARE METER ID UU13113748
[2016-11-16 16:15] LABS: POINT-OF-CARE METER ID UU13113748
[2016-11-16 17:21] LABS: POINT-OF-CARE METER ID UU13113748
[2016-11-16 17:56] LABS: C DIFF TOXIN POSITIVE (NEGATIVE)
[2016-11-16 18:00] VITALS: BP 155/81
[2016-11-16 18:00] LABS: PROBE CHECK PASS
[2016-11-16 18:51] LABS: POINT-OF-CARE METER ID UU13113748
[2016-11-16 19:40] LABS: POINT-OF-CARE METER ID UU13113731
[2016-11-16 20:58] LABS: POINT-OF-CARE METER ID UU13113748; POINT-OF-CARE USER ID 609231305
[2016-11-16 21:58] LABS: POINT-OF-CARE METER ID UU13113748
[2016-11-16 23:17] LABS: POINT-OF-CARE METER ID UU13113748
[2016-11-17 00:10] LABS: POINT-OF-CARE METER ID UU13113748
[2016-11-17 00:59] LABS: POINT-OF-CARE METER ID UU13113748
[2016-11-17 02:06] LABS: POINT-OF-CARE METER ID UU13113803
[2016-11-17 03:29] LABS: POINT-OF-CARE METER ID UU13113803
[2016-11-17 04:37] LABS: POINT-OF-CARE METER ID UU13113803
[2016-11-17 05:12] LABS: CHLORIDE 121 mEq/L (99-109); POTASSIUM 3.6 mEq/L (3.7-5.4); SODIUM 150 mEq/L (136-147)
[2016-11-17 05:13] LABS: MAGNESIUM 1.8 mg/dL (1.3-2.7)
[2016-11-17 05:14] LABS: GLUCOSE 169 mg/dL (70-99)
[2016-11-17 05:15] LABS: ANION GAP 10 MEQ/L (2-14)
[2016-11-17 05:18] LABS: GFR ESTIMATE (CALCULATED) > 59 mL/min/
[2016-11-17 05:19] LABS: UREA NITROGEN (BUN) 51 mg/dL (9-23)
[2016-11-17 06:34] LABS: POINT-OF-CARE METER ID UU13113803
[2016-11-17 07:44] LABS: POINT-OF-CARE METER ID UU13113803
[2016-11-17 08:49] LABS: POINT-OF-CARE METER ID UU13113803
[2016-11-17 09:00] VITALS: BP 121/72
[2016-11-17 09:50] LABS: POINT-OF-CARE METER ID UU13113803
[2016-11-17 10:00] VITALS: BP 121/72
[2016-11-17 10:41] LABS: POINT-OF-CARE METER ID UU13113803
[2016-11-17 11:57] LABS: POINT-OF-CARE METER ID UU13113803
[2016-11-17 12:21] LABS: POINT-OF-CARE METER ID UU13113803
[2016-11-17 13:16] LABS: POINT-OF-CARE METER ID UU13113803
[2016-11-17 14:17] LABS: POINT-OF-CARE METER ID UU13113803
[2016-11-17 15:00] VITALS: BP 131/83
[2016-11-17 16:00] VITALS: BP 134/76
[2016-11-17 16:36] LABS: POINT-OF-CARE METER ID UU13113803
[2016-11-17 20:00] VITALS: BP 115/73
[2016-11-17 22:00] VITALS: BP 119/73
[2016-11-17 22:06] LABS: POINT-OF-CARE METER ID UU13113803; POINT-OF-CARE USER ID 609231305
[2016-11-18] VITALS (10 sets, daily range): BP systolic 0–149; BP diastolic 0–87
[2016-11-18 06:00] LABS: POINT-OF-CARE USER ID ENVSME70
[2016-11-18 10:21] LABS: HEMATOCRIT 33.7 % (38.0-50.0); MCH 29.4 PG (29.0-34.0); MCV 91.8 FL (86-99); MEAN PLAT.VOLUME 10.9 uM^3 (9.0-12.4); PLATELET COUNT 165 K/uL (156-360); RBC DIS.WIDTH-SD 56.3 % (39-53); RED BLOOD COUNT 3.67 M/uL (4.00-5.50)
[2016-11-18 10:43] LABS: ANION GAP 9 MEQ/L (2-14); CHLORIDE 117 MEQ/L (99-109); GFR ESTIMATE (CALCULATED) > 59 mL/min/; GLUCOSE 228 mg/dL (70-99); SAMPLE HEMOLYSIS CHECK 0; SAMPLE ICTERIC CHECK 0; SAMPLE LIPEMIA CHECK 0; SODIUM 148 MEQ/L (136-147); UREA NITROGEN (BUN) 60 mg/dL (9-23)
[2016-11-18 12:23] LABS: POINT-OF-CARE METER ID UU13113803
[2016-11-18 17:57] LABS: POINT-OF-CARE METER ID UU14174217
[2016-11-18 20:31] LABS: ANION GAP 10 MEQ/L (2-14); CHLORIDE 117 MEQ/L (99-109); GFR ESTIMATE (CALCULATED) > 59 mL/min/; GLUCOSE 286 mg/dL (70-99); POTASSIUM 3.8 MEQ/L (3.7-5.4); SAMPLE HEMOLYSIS CHECK 0; SAMPLE ICTERIC CHECK 0; SAMPLE LIPEMIA CHECK 0; SODIUM 146 MEQ/L (136-147); UREA NITROGEN (BUN) 61 mg/dL (9-23)
[2016-11-18 22:30] LABS: POINT-OF-CARE METER ID UU13113748; POINT-OF-CARE USER ID PHATLC
[2016-11-19] VITALS (11 sets, daily range): BP systolic 111–143; BP diastolic 64–83
[2016-11-19 06:07] LABS: HEMATOCRIT 31.7 % (38.0-50.0); MCH 28.6 PG (29.0-34.0); MCHC 31.5 G/DL (30.0-36.0); MCV 90.6 FL (86-99); MEAN PLAT.VOLUME 10.4 uM^3 (9.0-12.4); PLATELET COUNT 151 K/uL (156-360); RBC DIS.WIDTH-CV 16.7 % (11.8-14.6); RBC DIS.WIDTH-SD 54.4 % (39-53); WHITE BLOOD COUNT 11.5 K/uL (4.1-10.2)
[2016-11-19 06:32] LABS: ANION GAP 10 MEQ/L (2-14); CHLORIDE 117 MEQ/L (99-109); GFR ESTIMATE (CALCULATED) > 59 mL/min/; GLUCOSE 303 mg/dL (70-99); MAGNESIUM 2.1 mg/dl (1.3-2.7); POTASSIUM 4.1 MEQ/L (3.7-5.4); SAMPLE HEMOLYSIS CHECK 0; SAMPLE ICTERIC CHECK 0; SAMPLE LIPEMIA CHECK 0; SODIUM 147 MEQ/L (136-147); UREA NITROGEN (BUN) 64 mg/dL (9-23)
[2016-11-19 08:36] LABS: POINT-OF-CARE METER ID UU14174217
[2016-11-19 12:04] LABS: POINT-OF-CARE METER ID UU14174217
[2016-11-19 17:15] LABS: POINT-OF-CARE METER ID UU13113748
[2016-11-19 20:48] LABS: ANION GAP 10 MEQ/L (2-14); CHLORIDE 117 MEQ/L (99-109); GFR ESTIMATE (CALCULATED) > 59 mL/min/; GLUCOSE 319 mg/dL (70-99); POTASSIUM 4.8 MEQ/L (3.7-5.4); SAMPLE HEMOLYSIS CHECK 1; SAMPLE ICTERIC CHECK 0; SAMPLE LIPEMIA CHECK 0; SODIUM 144 MEQ/L (136-147); UREA NITROGEN (BUN) 68 mg/dL (9-23)
[2016-11-19 23:33] LABS: POINT-OF-CARE METER ID UU13113748; POINT-OF-CARE USER ID PHATLC
[2016-11-20] VITALS (11 sets, daily range): BP systolic 116–135; BP diastolic 66–83
[2016-11-20 06:37] LABS: HEMATOCRIT 31.3 % (38.0-50.0); MCH 28.6 PG (29.0-34.0); MCHC 31.6 G/DL (30.0-36.0); MCV 90.5 FL (86-99); MEAN PLAT.VOLUME 10.8 uM^3 (9.0-12.4); PLATELET COUNT 164 K/uL (156-360); RBC DIS.WIDTH-CV 16.9 % (11.8-14.6); RBC DIS.WIDTH-SD 54.4 % (39-53); RED BLOOD COUNT 3.46 M/uL (4.00-5.50); WHITE BLOOD COUNT 12.9 K/uL (4.1-10.2)
[2016-11-20 07:04] LABS: ANION GAP 8 MEQ/L (2-14); CHLORIDE 119 MEQ/L (99-109); GFR ESTIMATE (CALCULATED) > 59 mL/min/; MAGNESIUM 2.1 mg/dl (1.3-2.7); SAMPLE HEMOLYSIS CHECK 0; SAMPLE ICTERIC CHECK 0; SAMPLE LIPEMIA CHECK 0; SODIUM 147 MEQ/L (136-147); UREA NITROGEN (BUN) 69 mg/dL (9-23)
[2016-11-20 07:05] LABS: GLUCOSE 134 mg/dL (70-99)
[2016-11-20 12:29] LABS: POINT-OF-CARE METER ID UU14174217
[2016-11-20 17:26] LABS: POINT-OF-CARE METER ID UU14174217
[2016-11-20 20:28] LABS: ANION GAP 8 MEQ/L (2-14); CHLORIDE 118 MEQ/L (99-109); GFR ESTIMATE (CALCULATED) > 59 mL/min/; GLUCOSE 163 mg/dL (70-99); POTASSIUM 4.2 MEQ/L (3.7-5.4); SAMPLE HEMOLYSIS CHECK 0; SAMPLE ICTERIC CHECK 0; SAMPLE LIPEMIA CHECK 0; SODIUM 146 MEQ/L (136-147); UREA NITROGEN (BUN) 73 mg/dL (9-23)
[2016-11-20 21:03] LABS: POINT-OF-CARE METER ID UU14174217
[2016-11-21] VITALS (9 sets, daily range): BP systolic 109–131; BP diastolic 63–77
[2016-11-21 04:56] LABS: HEMATOCRIT 29.7 % (38.0-50.0); MCH 28.6 PG (29.0-34.0); MCHC 31.3 G/DL (30.0-36.0); MCV 91.4 FL (86-99); MEAN PLAT.VOLUME 10.6 uM^3 (9.0-12.4); PLATELET COUNT 133 K/uL (156-360); RBC DIS.WIDTH-SD 55.5 % (39-53); RED BLOOD COUNT 3.25 M/uL (4.00-5.50); WHITE BLOOD COUNT 9.1 K/uL (4.1-10.2)
[2016-11-21 05:10] LABS: CHLORIDE 120 mEq/L (99-109); POTASSIUM 4.3 mEq/L (3.7-5.4); SODIUM 148 mEq/L (136-147)
[2016-11-21 05:14] LABS: ANION GAP 7 MEQ/L (2-14)
[2016-11-21 05:16] LABS: GFR ESTIMATE (CALCULATED) > 59 mL/min/
[2016-11-21 05:17] LABS: UREA NITROGEN (BUN) 75 mg/dL (9-23)
[2016-11-21 05:18] LABS: GLUCOSE 104 mg/dL (70-99)
[2016-11-21 12:20] LABS: POINT-OF-CARE METER ID UU14174217
[2016-11-21 16:02] LABS: POINT-OF-CARE METER ID UU14174217
[2016-11-21 20:33] LABS: ANION GAP 8 MEQ/L (2-14); CHLORIDE 117 MEQ/L (99-109); GFR ESTIMATE (CALCULATED) > 59 mL/min/; GLUCOSE 232 mg/dL (70-99); POTASSIUM 4.4 MEQ/L (3.7-5.4); SAMPLE HEMOLYSIS CHECK 0; SAMPLE ICTERIC CHECK 0; SAMPLE LIPEMIA CHECK 0; SODIUM 143 MEQ/L (136-147); UREA NITROGEN (BUN) 81 mg/dL (9-23)
[2016-11-21 21:34] LABS: POINT-OF-CARE METER ID UU14174217
[2016-11-22] VITALS (10 sets, daily range): BP systolic 99–130; BP diastolic 53–81
[2016-11-22 05:47] LABS: HEMATOCRIT 29.7 % (38.0-50.0); MCH 29.2 PG (29.0-34.0); MCHC 31.6 G/DL (30.0-36.0); MCV 92.2 FL (86-99); MEAN PLAT.VOLUME 11.7 uM^3 (9.0-12.4); PLATELET COUNT 128 K/uL (156-360); RBC DIS.WIDTH-CV 17.2 % (11.8-14.6); RBC DIS.WIDTH-SD 57.1 % (39-53); RED BLOOD COUNT 3.22 M/uL (4.00-5.50); WHITE BLOOD COUNT 7.6 K/uL (4.1-10.2)
[2016-11-22 06:08] LABS: POINT-OF-CARE METER ID UU14174217
[2016-11-22 06:24] LABS: ANION GAP 7 MEQ/L (2-14); CHLORIDE 121 MEQ/L (99-109); GFR ESTIMATE (CALCULATED) > 59 mL/min/; MAGNESIUM 2.3 mg/dl (1.3-2.7); POTASSIUM 4.2 MEQ/L (3.7-5.4); SAMPLE HEMOLYSIS CHECK 0; SAMPLE ICTERIC CHECK 0; SAMPLE LIPEMIA CHECK 0; SODIUM 148 MEQ/L (136-147); UREA NITROGEN (BUN) 75 mg/dL (9-23)
[2016-11-22 06:27] LABS: GLUCOSE 110 mg/dL (70-99)
[2016-11-22 11:58] LABS: POINT-OF-CARE METER ID UU14174217
[2016-11-22 17:56] LABS: BASE EXCESS -3.5 mEq/L (-3 to +3); BICARBONATE 21.4 mEq/L (22-26); CARBOXY HGB 1.8 % (0-5); COMMENTS - BLOOD GASES A+C+; DEVICE NRBM; FI02 100 %; METHEMOGLOBIN 1.7 % (0-1.5); O2 FLOW 15 L/MIN; PCO2 37 mm Hg (35-45); PO2 217 mm Hg (80-100); SITE RR; TOTAL RESP RATE 26 resp/min; pH 7.37 (7.35-7.45)
[2016-11-22 20:16] LABS: TROP-I INTERPRETATION NEGATIVE; TROPONIN-I 0.08 ng/mL (0.0-0.30)
[2016-11-22 20:22] LABS: GLUCOSE 58 mg/dL (70-99)
[2016-11-22 20:35] LABS: ANION GAP 9 MEQ/L (2-14); CHLORIDE 118 MEQ/L (99-109); POTASSIUM 4.6 MEQ/L (3.7-5.4); SAMPLE HEMOLYSIS CHECK 0; SAMPLE ICTERIC CHECK 0; SAMPLE LIPEMIA CHECK 0; SODIUM 148 MEQ/L (136-147)
[2016-11-22 20:40] LABS: POINT-OF-CARE METER ID UU14174216
[2016-11-22 20:43] LABS: GFR ESTIMATE (CALCULATED) > 59 mL/min/; GLUCOSE 59 mg/dL (70-99); UREA NITROGEN (BUN) 69 mg/dL (9-23)
[2016-11-22 21:53] LABS: POINT-OF-CARE METER ID UU14174216
[2016-11-22 23:48] LABS: POINT-OF-CARE METER ID UU14174216
[2016-11-23 01:09] LABS: POINT-OF-CARE METER ID UU14174216
[2016-11-23 02:04] VITALS: BP 119/56
[2016-11-23 05:42] VITALS: BP 109/54
[2016-11-23 06:50] LABS: HEMATOCRIT 28.9 % (38.0-50.0); MCH 29.4 PG (29.0-34.0); MCHC 31.5 G/DL (30.0-36.0); MCV 93.2 FL (86-99); MEAN PLAT.VOLUME 11.3 uM^3 (9.0-12.4); PLATELET COUNT 136 K/uL (156-360); RBC DIS.WIDTH-CV 17.5 % (11.8-14.6); RBC DIS.WIDTH-SD 58.5 % (39-53)
[2016-11-23 08:45] VITALS: BP 122/79
[2016-11-23 11:15] VITALS: BP 124/77
[2016-11-23 16:44] VITALS: BP 120/74
[2016-11-23 17:08] LABS: POINT-OF-CARE METER ID UU13113781
[2016-11-23 19:20] VITALS: BP 143/93
[2016-11-23 20:58] LABS: ANION GAP 9 MEQ/L (2-14); CHLORIDE 120 MEQ/L (99-109); GFR ESTIMATE (CALCULATED) > 59 mL/min/; POTASSIUM 4.6 MEQ/L (3.7-5.4); SAMPLE HEMOLYSIS CHECK 0; SAMPLE ICTERIC CHECK 0; SAMPLE LIPEMIA CHECK 0; SODIUM 146 MEQ/L (136-147); UREA NITROGEN (BUN) 62 mg/dL (9-23)
[2016-11-23 21:06] LABS: GLUCOSE 192 mg/dL (70-99)
[2016-11-23 21:54] LABS: POINT-OF-CARE METER ID UU13113698
[2016-11-24 00:30] VITALS: BP 116/69
[2016-11-24 06:03] LABS: HEMATOCRIT 28.3 % (38.0-50.0); MCH 28.8 PG (29.0-34.0); MCHC 31.1 G/DL (30.0-36.0); MCV 92.5 FL (86-99); MEAN PLAT.VOLUME 11.3 uM^3 (9.0-12.4); PLATELET COUNT 141 K/uL (156-360); RBC DIS.WIDTH-CV 17.6 % (11.8-14.6); RBC DIS.WIDTH-SD 59.1 % (39-53); RED BLOOD COUNT 3.06 M/uL (4.00-5.50); WHITE BLOOD COUNT 7.5 K/uL (4.1-10.2)
[2016-11-24 06:21] VITALS: BP 111/68
[2016-11-24 07:26] VITALS: BP 113/69
[2016-11-24 07:49] LABS: POINT-OF-CARE METER ID UU14174216
[2016-11-24 11:45] VITALS: BP 112/69
[2016-11-24 11:56] LABS: POINT-OF-CARE METER ID UU13113698
[2016-11-24 16:31] LABS: POINT-OF-CARE METER ID UU14174216
[2016-11-24 16:40] VITALS: BP 118/73
[2016-11-24 20:04] VITALS: BP 113/71
[2016-11-24 20:30] LABS: ANION GAP 6 MEQ/L (2-14); CHLORIDE 121 MEQ/L (99-109); SAMPLE HEMOLYSIS CHECK 0; SAMPLE ICTERIC CHECK 0; SAMPLE LIPEMIA CHECK 0; SODIUM 148 MEQ/L (136-147)
[2016-11-24 20:36] LABS: GFR ESTIMATE (CALCULATED) > 59 mL/min/; UREA NITROGEN (BUN) 60 mg/dL (9-23)
[2016-11-24 20:39] LABS: GLUCOSE 60 mg/dL (70-99)
[2016-11-25 00:53] VITALS: BP 125/76
[2016-11-25 05:35] VITALS: BP 127/70
[2016-11-25 06:44] LABS: HEMATOCRIT 28.9 % (38.0-50.0); MCH 29.4 PG (29.0-34.0); MCHC 31.5 G/DL (30.0-36.0); MCV 93.2 FL (86-99); MEAN PLAT.VOLUME 11.1 uM^3 (9.0-12.4); PLATELET COUNT 165 K/uL (156-360); RBC DIS.WIDTH-CV 17.4 % (11.8-14.6); RBC DIS.WIDTH-SD 58.5 % (39-53); WHITE BLOOD COUNT 9.2 K/uL (4.1-10.2)
[2016-11-25 07:36] VITALS: BP 124/68
[2016-11-25 08:10] LABS: POINT-OF-CARE METER ID UU13113781
[2016-11-25 08:13] LABS: POINT-OF-CARE METER ID UU13113781; POINT-OF-CARE USER ID NUTSLF44
[2016-11-25 11:05] VITALS: BP 105/68
[2016-11-25 11:48] LABS: POINT-OF-CARE METER ID UU13113781
[2016-11-25 16:04] VITALS: BP 115/77
[2016-11-25 17:00] LABS: POINT-OF-CARE METER ID UU13113698
[2016-11-25 17:00] LABS: POINT-OF-CARE METER ID UU13113698; POINT-OF-CARE USER ID NUTSLF44
[2016-11-25 19:58] VITALS: BP 108/65
[2016-11-25 20:47] LABS: POINT-OF-CARE METER ID UU13113781
[2016-11-26 00:02] VITALS: BP 114/71
[2016-11-26 04:30] VITALS: BP 109/67
[2016-11-26 05:48] LABS: ALKALINE PHOSPHATASE 70 IU/L (3-129); ANION GAP 6 MEQ/L (2-14); CHLORIDE 121 MEQ/L (99-109); GFR ESTIMATE (CALCULATED) > 59 mL/min/; GLUCOSE 61 mg/dL (70-99); POTASSIUM 4.1 MEQ/L (3.7-5.4); SAMPLE HEMOLYSIS CHECK 0; SAMPLE ICTERIC CHECK 0; SAMPLE LIPEMIA CHECK 0; SODIUM 147 MEQ/L (136-147); TOTAL BILIRUBIN 0.3 MG/DL (0.0-1.0); UREA NITROGEN (BUN) 51 mg/dL (9-23)
[2016-11-26 05:53] LABS: HEMATOCRIT 27.8 % (38.0-50.0); MCH 29.1 PG (29.0-34.0); MCHC 30.6 G/DL (30.0-36.0); MCV 95.2 FL (86-99); MEAN PLAT.VOLUME 11.6 uM^3 (9.0-12.4); PLATELET COUNT 125 K/uL (156-360); RBC DIS.WIDTH-CV 17.3 % (11.8-14.6); RBC DIS.WIDTH-SD 59.8 % (39-53); RED BLOOD COUNT 2.92 M/uL (4.00-5.50); WHITE BLOOD COUNT 6.1 K/uL (4.1-10.2)
[2016-11-26 08:01] VITALS: BP 120/78
[2016-11-26 10:08] LABS: POINT-OF-CARE METER ID UU13113781
[2016-11-26 11:25] LABS: POINT-OF-CARE METER ID UU13113698
[2016-11-26 12:23] VITALS: BP 112/81
[2016-11-26 16:43] VITALS: BP 118/56
[2016-11-26 16:56] LABS: POINT-OF-CARE METER ID UU13113781
[2016-11-26 17:35] LABS: POINT-OF-CARE METER ID UU13113698
[2016-11-26 18:52] LABS: POINT-OF-CARE METER ID UU13113781
[2016-11-26 20:00] VITALS: BP 116/75
[2016-11-26 22:20] LABS: POINT-OF-CARE METER ID UU13113781
[2016-11-26 23:18] LABS: POINT-OF-CARE METER ID UU13113781
[2016-11-27] VITALS (12 sets, daily range): BP systolic 94–130; BP diastolic 58–76
[2016-11-27 04:24] LABS: POINT-OF-CARE METER ID UU14174216
[2016-11-27 06:13] LABS: MCH 28.9 PG (29.0-34.0); MCV 96.4 FL (86-99); PLATELET COUNT 107 K/uL (156-360); RBC DIS.WIDTH-CV 17.2 % (11.8-14.6); RBC DIS.WIDTH-SD 60.7 % (39-53); WHITE BLOOD COUNT 4.8 K/uL (4.1-10.2)
[2016-11-27 08:24] LABS: POINT-OF-CARE METER ID UU14174216; POINT-OF-CARE USER ID ENVKC36
[2016-11-27 12:17] LABS: POINT-OF-CARE METER ID UU13113781; POINT-OF-CARE USER ID ENVKC36
[2016-11-27 14:58] LABS: BASE EXCESS -14.2 mEq/L (-3 to +3); CARBOXY HGB 2.9 % (0-5); METHEMOGLOBIN 1.5 % (0-1.5)
[2016-11-27 15:00] LABS: PCO2 59 mm Hg (35-45); PO2 62 mm Hg (80-100)
[2016-11-27 15:01] LABS: COMMENTS - BLOOD GASES C+; DEVICE VENT 980; FI02 100 %; MECHANICAL RATE 14 resp/min; MODE AC; PEEP 10 CM/H20; SITE LR; TIDAL VOLUME 400 ML; TOTAL RESP RATE 25 resp/min; pH 7.04 (7.35-7.45)
[2016-11-27 15:44] LABS: MCHC 29.4 G/DL (30.0-36.0); MCV 98.7 FL (86-99); MEAN PLAT.VOLUME 11.2 uM^3 (9.0-12.4); PLATELET COUNT 178 K/uL (156-360); RBC DIS.WIDTH-CV 17.4 % (11.8-14.6); RBC DIS.WIDTH-SD 62.4 % (39-53); RED BLOOD COUNT 3.14 M/uL (4.00-5.50); WHITE BLOOD COUNT 12.7 K/uL (4.1-10.2)
[2016-11-27 16:11] LABS: INTER. NORMALIZED RATIO 1.3; PROTHROMBIN TIME 13.3 (9.2-11.2); PTT 36.9 (25-32)
[2016-11-27 16:13] LABS: ALKALINE PHOSPHATASE 89 IU/L (3-129); ANION GAP 11 MEQ/L (2-14); CHLORIDE 120 MEQ/L (99-109); GFR ESTIMATE (CALCULATED) 51 mL/min/; POTASSIUM 4.8 MEQ/L (3.7-5.4); SAMPLE HEMOLYSIS CHECK 0; SAMPLE ICTERIC CHECK 0; SAMPLE LIPEMIA CHECK 0; SODIUM 147 MEQ/L (136-147); UREA NITROGEN (BUN) 51 mg/dL (9-23)
[2016-11-27 16:17] LABS: GLUCOSE 204 mg/dL (70-99); TOTAL BILIRUBIN 0.4 MG/DL (0.0-1.0)
[2016-11-27 16:50] LABS: ADD MIUA? YES; BILIRUBIN NEGATIVE; BLOOD SMALL; COLOR YELLOW ((YELLOW)); GLUCOSE (STRIP) NEGATIVE; KETONES NEGATIVE; LEUKOCYTES SMALL; NITRITE NEGATIVE; PROTEIN (STRIP) 100; SPECIFIC GRAVITY 1.038 (1.000-1.030); UROBILINOGEN 0.2 MG/DL (0.2-1.0)
[2016-11-27 17:02] LABS: METH RESISTANT S AUREUS PCR NEGATIVE (NEGATIVE)
[2016-11-27 17:06] LABS: PROBE CHECK PASS; SPECIMEN PROCESSING CONTROL PASS
[2016-11-27 17:53] LABS: BASE EXCESS -7.2 mEq/L (-3 to +3); BICARBONATE 18.8 mEq/L (22-26); METHEMOGLOBIN 1.8 % (0-1.5); PCO2 39 mm Hg (35-45); PO2 77 mm Hg (80-100)
[2016-11-27 17:54] LABS: COMMENTS - BLOOD GASES C+; DEVICE VENT; FI02 90 %; MECHANICAL RATE 25 resp/min; MODE AC; PEEP 10 CM/H20; SITE LR; TIDAL VOLUME 400 ML; TOTAL RESP RATE 27 resp/min; pH 7.29 (7.35-7.45)
[2016-11-27 18:07] LABS: AMORPHOUS URATES CRYSTALS 4+; BACTERIA 2+ /HPF; EPITHELIAL CELLS NONE SEEN /HPF; MUCUS NONE SEEN /LPF; RED BLOOD CELLS 0-5 /HPF (0-5); UCUL ADDED? YES
[2016-11-27 18:42] LABS: TRIGLYCERIDES 194 MG/DL (Normal: <150)
[2016-11-27 23:30] LABS: POINT-OF-CARE USER ID PHATLC
[2016-11-28] VITALS (24 sets, daily range): BP systolic 94–124; BP diastolic 56–66
[2016-11-28 00:05] LABS: INTER. NORMALIZED RATIO 1.4; PROTHROMBIN TIME 13.9 (9.2-11.2); PTT 29.8 (25-32)
[2016-11-28 04:01] LABS: POINT-OF-CARE METER ID UU14174217; POINT-OF-CARE USER ID PHATLC
[2016-11-28 07:30] LABS: POINT-OF-CARE METER ID UU14174217
[2016-11-28 08:04] LABS: BASE EXCESS -2.7 mEq/L (-3 to +3); BICARBONATE 21.1 mEq/L (22-26); CARBOXY HGB 1.7 % (0-5); METHEMOGLOBIN 1.7 % (0-1.5); PCO2 31 mm Hg (35-45); PO2 104 mm Hg (80-100); pH 7.44 (7.35-7.45)
[2016-11-28 08:05] LABS: COMMENTS - BLOOD GASES C+; DEVICE VENT; FI02 60 %; MECHANICAL RATE 25 resp/min; MODE AC; PEEP 10 CM/H20; SITE LR; TIDAL VOLUME 400 ML; TOTAL RESP RATE 28 resp/min
[2016-11-28 08:55] LABS: ANION GAP 9 MEQ/L (2-14); CHLORIDE 122 MEQ/L (99-109); GFR ESTIMATE (CALCULATED) 47 mL/min/; GLUCOSE 161 mg/dL (70-99); MAGNESIUM 2.4 mg/dl (1.3-2.7); SAMPLE HEMOLYSIS CHECK 0; SAMPLE ICTERIC CHECK 0; SAMPLE LIPEMIA CHECK 0; SODIUM 151 MEQ/L (136-147); UREA NITROGEN (BUN) 55 mg/dL (9-23)
[2016-11-28 09:37] LABS: MCH 28.4 PG (29.0-34.0); MCHC 30.4 G/DL (30.0-36.0); PLATELET COUNT 135 K/uL (156-360); RBC DIS.WIDTH-CV 17.3 % (11.8-14.6); RBC DIS.WIDTH-SD 59.5 % (39-53); RED BLOOD COUNT 2.99 M/uL (4.00-5.50); WHITE BLOOD COUNT 8.5 K/uL (4.1-10.2)
[2016-11-28 09:41] LABS: MCV 93.6 FL (86-99)
[2016-11-28 10:27] LABS: POINT-OF-CARE METER ID UU13113731
[2016-11-28 10:37] LABS: EOSINOPHIL (%) 0.8 % (0-5); EOSINOPHIL COUNT 0.1 K/uL (0-0.3); HEMATOLOGY COMMENT 1 SMEAR COMPATIBLE; IMMATURE GRANULOCYTE (%) 0.6 % (0.0-0.7); IMMATURE GRANULOCYTE COUNT 0.1 K/uL; LYMPHOCYTE COUNT 0.7 K/uL (1.0-2.8); MONOCYTE (%) 7.2 % (3-12); MONOCYTE COUNT 0.6 K/uL (0-0.8); NEUTROPHIL (%) 82.9 % (45-76)
[2016-11-28 21:37] LABS: POINT-OF-CARE METER ID UU14174217
[2016-11-29] VITALS (24 sets, daily range): BP systolic 92–118; BP diastolic 53–73
[2016-11-29 04:30] LABS: POINT-OF-CARE USER ID PHATLC
[2016-11-29 05:24] LABS: BASE EXCESS -4.5 mEq/L (-3 to +3); BICARBONATE 19.6 mEq/L (22-26); CARBOXY HGB 2.3 % (0-5); METHEMOGLOBIN 1.6 % (0-1.5); PCO2 31 mm Hg (35-45); pH 7.41 (7.35-7.45)
[2016-11-29 05:25] LABS: COMMENTS - BLOOD GASES C+; DEVICE 980; FI02 30 %; MECHANICAL RATE 25 resp/min; MODE AC+; PEEP 5 CM/H20; PO2 65 mm Hg (80-100); SITE LR; TIDAL VOLUME 400 ML; TOTAL RESP RATE 27 resp/min
[2016-11-29 06:05] LABS: POINT-OF-CARE METER ID UU13113748
[2016-11-29 06:27] LABS: ANION GAP 9 MEQ/L (2-14); CHLORIDE 121 MEQ/L (99-109); GFR ESTIMATE (CALCULATED) 51 mL/min/; GLUCOSE 171 mg/dL (70-99); POTASSIUM 3.6 MEQ/L (3.7-5.4); SAMPLE HEMOLYSIS CHECK 0; SAMPLE ICTERIC CHECK 0; SAMPLE LIPEMIA CHECK 0; SODIUM 149 MEQ/L (136-147); UREA NITROGEN (BUN) 49 mg/dL (9-23)
[2016-11-29 15:43] LABS: BASE EXCESS -4.1 mEq/L (-3 to +3); BICARBONATE 20.1 mEq/L (22-26); CARBOXY HGB 2.8 % (0-5); METHEMOGLOBIN 1.2 % (0-1.5); PCO2 34 mm Hg (35-45); PO2 75 mm Hg (80-100); SITE RR; pH 7.38 (7.35-7.45)
[2016-11-29 15:44] LABS: COMMENTS - BLOOD GASES A+C+; DEVICE 840; FI02 40 %; MODE TC; PEEP 5 CM/H20; TIDAL VOLUME 488 ML; TOTAL RESP RATE 16 resp/min
[2016-11-29 22:56] LABS: POINT-OF-CARE METER ID UU14162636
[2016-11-30] VITALS (21 sets, daily range): BP systolic 89–129; BP diastolic 51–73
[2016-11-30 06:58] LABS: HEMATOCRIT 25.7 % (38.0-50.0); MCH 28.3 PG (29.0-34.0); MCHC 30.7 G/DL (30.0-36.0); MCV 92.1 FL (86-99); PLATELET COUNT 109 K/uL (156-360); RBC DIS.WIDTH-CV 17.4 % (11.8-14.6); RBC DIS.WIDTH-SD 58.3 % (39-53); RED BLOOD COUNT 2.79 M/uL (4.00-5.50); WHITE BLOOD COUNT 5.1 K/uL (4.1-10.2)
[2016-11-30 10:27] LABS: ANION GAP 9 MEQ/L (2-14); CHLORIDE 123 MEQ/L (99-109); GFR ESTIMATE (CALCULATED) > 59 mL/min/; GLUCOSE 174 mg/dL (70-99); MAGNESIUM 2.2 mg/dl (1.3-2.7); POTASSIUM 4.1 MEQ/L (3.7-5.4); SAMPLE HEMOLYSIS CHECK 0; SAMPLE ICTERIC CHECK 0; SAMPLE LIPEMIA CHECK 0; SODIUM 151 MEQ/L (136-147); UREA NITROGEN (BUN) 43 mg/dL (9-23)
[2016-12-01] VITALS (24 sets, daily range): BP systolic 118–143; BP diastolic 63–79
[2016-12-01 06:01] LABS: ALKALINE PHOSPHATASE 67 IU/L (3-129); ANION GAP 7 MEQ/L (2-14); CHLORIDE 123 MEQ/L (99-109); GFR ESTIMATE (CALCULATED) > 59 mL/min/; GLUCOSE 201 mg/dL (70-99); MAGNESIUM 2.2 mg/dl (1.3-2.7); POTASSIUM 3.8 MEQ/L (3.7-5.4); PREALBUMIN 5.4 mg/dL (10-40); SAMPLE HEMOLYSIS CHECK 0; SAMPLE ICTERIC CHECK 0; SAMPLE LIPEMIA CHECK 0; SODIUM 151 MEQ/L (136-147); TRIGLYCERIDES 104 MG/DL (Normal: <150); UREA NITROGEN (BUN) 44 mg/dL (9-23)
[2016-12-01 06:03] LABS: TOTAL BILIRUBIN 0.3 MG/DL (0.0-1.0)
[2016-12-01 10:25] LABS: POINT-OF-CARE METER ID UU13113731
[2016-12-01 13:06] LABS: BASE EXCESS -3.5 mEq/L (-3 to +3); BICARBONATE 21.4 mEq/L (22-26); CARBOXY HGB 2.1 % (0-5); METHEMOGLOBIN 1.3 % (0-1.5); PCO2 37 mm Hg (35-45); PO2 77 mm Hg (80-100); SITE LR; pH 7.37 (7.35-7.45)
[2016-12-01 13:07] LABS: COMMENTS - BLOOD GASES AC+; DEVICE NASAL CANNULA; O2 FLOW 3 L/MIN; TOTAL RESP RATE 28 resp/min
[2016-12-01 16:18] LABS: POINT-OF-CARE METER ID UU13113731
[2016-12-01 18:47] LABS: POINT-OF-CARE METER ID UU13113731
[2016-12-01 22:22] LABS: POINT-OF-CARE METER ID UU14162636
[2016-12-02] VITALS (26 sets, daily range): BP systolic 99–138; BP diastolic 55–75
[2016-12-02 06:08] LABS: HEMATOCRIT 24.8 % (38.0-50.0); MCH 28.8 PG (29.0-34.0); MCV 92.9 FL (86-99); PLATELET COUNT 96 K/uL (156-360); RBC DIS.WIDTH-SD 60.7 % (39-53); RED BLOOD COUNT 2.67 M/uL (4.00-5.50); WHITE BLOOD COUNT 3.3 K/uL (4.1-10.2)
[2016-12-02 06:39] LABS: ANION GAP 8 MEQ/L (2-14); CHLORIDE 121 MEQ/L (99-109); GFR ESTIMATE (CALCULATED) > 59 mL/min/; POTASSIUM 3.6 MEQ/L (3.7-5.4); SAMPLE HEMOLYSIS CHECK 0; SAMPLE ICTERIC CHECK 0; SAMPLE LIPEMIA CHECK 0; SODIUM 150 MEQ/L (136-147); UREA NITROGEN (BUN) 58 mg/dL (9-23)
[2016-12-02 06:45] LABS: GLUCOSE 421 mg/dL (70-99)
[2016-12-02 09:54] LABS: POINT-OF-CARE METER ID UU14174217
[2016-12-02 12:46] LABS: POINT-OF-CARE METER ID UU14174217
[2016-12-02 14:58] LABS: POINT-OF-CARE METER ID UU14174217
[2016-12-02 16:23] LABS: POINT-OF-CARE METER ID UU14174217
[2016-12-02 18:33] LABS: POINT-OF-CARE METER ID UU14174217
[2016-12-02 20:13] LABS: POINT-OF-CARE METER ID UU14174217
[2016-12-02 23:46] LABS: POINT-OF-CARE METER ID UU14174217
[2016-12-03] VITALS (24 sets, daily range): BP systolic 96–129; BP diastolic 58–74
[2016-12-03 01:35] LABS: POINT-OF-CARE METER ID UU14162636
[2016-12-03 02:53] LABS: POINT-OF-CARE METER ID UU14174217
[2016-12-03 04:29] LABS: POINT-OF-CARE METER ID UU14162636
[2016-12-03 05:46] LABS: ANION GAP 5 MEQ/L (2-14); CHLORIDE 120 MEQ/L (99-109); GFR ESTIMATE (CALCULATED) > 59 mL/min/; GLUCOSE 269 mg/dL (70-99); MAGNESIUM 1.9 mg/dl (1.3-2.7); POTASSIUM 3.6 MEQ/L (3.7-5.4); SAMPLE HEMOLYSIS CHECK 0; SAMPLE ICTERIC CHECK 0; SAMPLE LIPEMIA CHECK 0; SODIUM 149 MEQ/L (136-147); UREA NITROGEN (BUN) 74 mg/dL (9-23)
[2016-12-03 06:35] LABS: POINT-OF-CARE METER ID UU14162636
[2016-12-03 08:55] LABS: POINT-OF-CARE METER ID UU14174217
[2016-12-03 08:55] LABS: POINT-OF-CARE METER ID UU14174217
[2016-12-03 09:04] LABS: POINT-OF-CARE METER ID UU14162636
[2016-12-03 10:59] LABS: POINT-OF-CARE METER ID UU14162636
[2016-12-03 14:19] LABS: POINT-OF-CARE METER ID UU14162636
[2016-12-03 17:53] LABS: POINT-OF-CARE METER ID UU14162636
[2016-12-03 22:46] LABS: POINT-OF-CARE METER ID UU13113748
[2016-12-04] VITALS (23 sets, daily range): BP systolic 116–137; BP diastolic 63–74
[2016-12-04 05:15] LABS: HEMATOCRIT 23.1 % (38.0-50.0); MCH 29.7 PG (29.0-34.0); MCV 92.8 FL (86-99); MEAN PLAT.VOLUME 11.8 uM^3 (9.0-12.4); PLATELET COUNT 93 K/uL (156-360); RBC DIS.WIDTH-CV 17.9 % (11.8-14.6); RBC DIS.WIDTH-SD 59.7 % (39-53); RED BLOOD COUNT 2.49 M/uL (4.00-5.50); WHITE BLOOD COUNT 3.6 K/uL (4.1-10.2)
[2016-12-04 05:43] LABS: ANION GAP 9 MEQ/L (2-14); CHLORIDE 119 MEQ/L (99-109); GFR ESTIMATE (CALCULATED) > 59 mL/min/; GLUCOSE 298 mg/dL (70-99); MAGNESIUM 1.9 mg/dl (1.3-2.7); POTASSIUM 3.9 MEQ/L (3.7-5.4); SAMPLE HEMOLYSIS CHECK 0; SAMPLE ICTERIC CHECK 0; SAMPLE LIPEMIA CHECK 0; SODIUM 151 MEQ/L (136-147); UREA NITROGEN (BUN) 91 mg/dL (9-23)
[2016-12-04 05:51] LABS: EOSINOPHIL (%) 0 % (0-5); HEMATOLOGY COMMENT 1 SMEAR COMPATIBLE; IMMATURE GRANULOCYTE (%) 0.6 % (0.0-0.7); INSTRUMENT ABS NEUTROPHIL CT 3.3 K/uL; LYMPHOCYTE COUNT 0.2 K/uL (1.0-2.8); MONOCYTE (%) 3.4 % (3-12); MONOCYTE COUNT 0.1 K/uL (0-0.8); NEUTROPHIL COUNT 3.3 K/uL (1.8-6.4)
[2016-12-04 21:32] LABS: TYPE OF FLUID PERITONEAL
[2016-12-04 22:28] LABS: POINT-OF-CARE METER ID UU13113748
[2016-12-04 22:51] LABS: ANION GAP 9 MEQ/L (2-14); CHLORIDE 118 MEQ/L (99-109); GFR ESTIMATE (CALCULATED) > 59 mL/min/; GLUCOSE 245 mg/dL (70-99); POTASSIUM 4.3 MEQ/L (3.7-5.4); SAMPLE HEMOLYSIS CHECK 0; SAMPLE ICTERIC CHECK 0; SAMPLE LIPEMIA CHECK 0; SODIUM 152 MEQ/L (136-147); UREA NITROGEN (BUN) 99 mg/dL (9-23)
[2016-12-04 23:20] LABS: BODY FLUID EOSINOPHILS 0 % (0-25); BODY FLUID RBC'S 3000 /MM^3 (0-100); BODY FLUID WBC'S 1665 /MM^3 (0-500); MONONUCLEAR WBC'S 22 %; POLYNUCLEAR WBC'S 79 % (0-25)
[2016-12-05] VITALS (27 sets, daily range): BP systolic 118–146; BP diastolic 63–84
[2016-12-05 06:50] LABS: ANION GAP 7 MEQ/L (2-14); CHLORIDE 116 MEQ/L (99-109); GFR ESTIMATE (CALCULATED) > 59 mL/min/; GLUCOSE 264 mg/dL (70-99); MAGNESIUM 2.2 mg/dl (1.3-2.7); POTASSIUM 4.4 MEQ/L (3.7-5.4); SAMPLE HEMOLYSIS CHECK 0; SAMPLE ICTERIC CHECK 0; SAMPLE LIPEMIA CHECK 0; SODIUM 150 MEQ/L (136-147); UREA NITROGEN (BUN) 104 mg/dL (9-23)
[2016-12-05 07:56] LABS: HEMATOCRIT 23.4 % (38.0-50.0); MCH 28.7 PG (29.0-34.0); MCHC 30.8 G/DL (30.0-36.0); MCV 93.2 FL (86-99); PLATELET COUNT 95 K/uL (156-360); RBC DIS.WIDTH-SD 60.1 % (39-53); RED BLOOD COUNT 2.51 M/uL (4.00-5.50); WHITE BLOOD COUNT 3.1 K/uL (4.1-10.2)
[2016-12-05 08:36] LABS: EOSINOPHIL (%) 0 % (0-5); IMMATURE GRANULOCYTE (%) 0.6 % (0.0-0.7); INSTRUMENT ABS NEUTROPHIL CT 2.7 K/uL; LYMPHOCYTE COUNT 0.2 K/uL (1.0-2.8); MONOCYTE (%) 5.2 % (3-12); MONOCYTE COUNT 0.2 K/uL (0-0.8); NEUTROPHIL (%) 88.4 % (45-76); NEUTROPHIL COUNT 2.7 K/uL (1.8-6.4)
[2016-12-05 14:11] LABS: POINT-OF-CARE METER ID UU13113803
[2016-12-05 18:41] LABS: POINT-OF-CARE METER ID UU13113803
[2016-12-05 22:05] LABS: POINT-OF-CARE METER ID UU13113803
[2016-12-06] VITALS (24 sets, daily range): BP systolic 104–134; BP diastolic 65–85
[2016-12-06 02:32] LABS: POINT-OF-CARE METER ID UU13113803
[2016-12-06 05:06] LABS: POINT-OF-CARE METER ID UU13113803
[2016-12-06 05:40] LABS: POINT-OF-CARE METER ID UU13113803
[2016-12-06 06:34] LABS: ANION GAP 8 MEQ/L (2-14); CHLORIDE 115 MEQ/L (99-109); GFR ESTIMATE (CALCULATED) > 59 mL/min/; MAGNESIUM 2.3 mg/dl (1.3-2.7); POTASSIUM 4.4 MEQ/L (3.7-5.4); SAMPLE HEMOLYSIS CHECK 0; SAMPLE ICTERIC CHECK 0; SAMPLE LIPEMIA CHECK 0; SODIUM 153 MEQ/L (136-147)
[2016-12-06 06:36] LABS: GLUCOSE 73 mg/dL (70-99); UREA NITROGEN (BUN) 103 mg/dL (9-23)
[2016-12-06 07:09] LABS: EOSINOPHIL (%) 0.3 % (0-5); HEMATOCRIT 33.4 % (38.0-50.0); IMMATURE GRANULOCYTE (%) 0.9 % (0.0-0.7); IMMATURE GRANULOCYTE COUNT 0.1 K/uL; INSTRUMENT ABS NEUTROPHIL CT 6.1 K/uL; LYMPHOCYTE COUNT 0.4 K/uL (1.0-2.8); MCH 28.6 PG (29.0-34.0); MCHC 31.1 G/DL (30.0-36.0); MCV 91.8 FL (86-99); MEAN PLAT.VOLUME 12.2 uM^3 (9.0-12.4); MONOCYTE (%) 5.4 % (3-12); MONOCYTE COUNT 0.4 K/uL (0-0.8); NEUTROPHIL (%) 87.5 % (45-76); NEUTROPHIL COUNT 6.1 K/uL (1.8-6.4); PLATELET COUNT 119 K/uL (156-360); RBC DIS.WIDTH-CV 19.1 % (11.8-14.6); RBC DIS.WIDTH-SD 60.9 % (39-53); WHITE BLOOD COUNT 6.9 K/uL (4.1-10.2)
[2016-12-06 07:14] LABS: RED BLOOD COUNT 3.64 M/uL (4.00-5.50)
[2016-12-06 08:16] LABS: POINT-OF-CARE METER ID UU13113803
[2016-12-06 10:43] LABS: POINT-OF-CARE METER ID UU13113803
[2016-12-06 15:12] LABS: POINT-OF-CARE METER ID UU13113803
[2016-12-06 16:52] LABS: POINT-OF-CARE METER ID UU13113803
[2016-12-06 20:14] LABS: POINT-OF-CARE METER ID UU13113803
[2016-12-06 22:10] LABS: POINT-OF-CARE METER ID UU13113803
[2016-12-07] VITALS (24 sets, daily range): BP systolic 86–121; BP diastolic 52–71
[2016-12-07 03:04] LABS: POINT-OF-CARE METER ID UU13113748
[2016-12-07 04:18] LABS: HEMATOCRIT 28.2 % (38.0-50.0); MCH 28.6 PG (29.0-34.0); MCHC 31.2 G/DL (30.0-36.0); MCV 91.6 FL (86-99); MEAN PLAT.VOLUME 11.7 uM^3 (9.0-12.4); PLATELET COUNT 95 K/uL (156-360); RBC DIS.WIDTH-CV 19.9 % (11.8-14.6); RBC DIS.WIDTH-SD 61.4 % (39-53); RED BLOOD COUNT 3.08 M/uL (4.00-5.50); WHITE BLOOD COUNT 5.9 K/uL (4.1-10.2)
[2016-12-07 04:35] LABS: CHLORIDE 117 mEq/L (99-109); POTASSIUM 4.6 mEq/L (3.7-5.4); SODIUM 150 mEq/L (136-147)
[2016-12-07 04:39] LABS: ANION GAP 6 MEQ/L (2-14); TOTAL BILIRUBIN 0.3 mg/dL (0.0-1.0)
[2016-12-07 04:41] LABS: GFR ESTIMATE (CALCULATED) > 59 mL/min/
[2016-12-07 04:43] LABS: DIRECT BILIRUBIN 0.2 mg/dL (0.0-0.3)
[2016-12-07 04:58] LABS: ALKALINE PHOSPHATASE 82 IU/L (3-129)
[2016-12-07 05:01] LABS: GLUCOSE 197 mg/dL (70-99); UREA NITROGEN (BUN) 113 mg/dL (9-23)
[2016-12-07 05:10] LABS: ABS NEUTROPHIL COUNT 5.4; ANISOCYTOSIS 1+; EOSINOPHIL ABS CT 0; LYMPHOCYTES 4.4 % (15.0-45.0); MACROCYTES 1+; OVALOCYTES 1+; SEG.NEUTROPHILS 92.1 % (46.0-76.0)
[2016-12-07 06:19] LABS: POINT-OF-CARE METER ID UU13113748
[2016-12-07 06:31] LABS: PREALBUMIN 16.1 mg/dL (10-40); TRIGLYCERIDES 198 MG/DL (Normal: <150)
[2016-12-07 09:34] LABS: GASTRIC OCCULT BLD. NEGATIVE; INTERNAL CONTROL VALID? YES
[2016-12-07 10:34] LABS: POINT-OF-CARE METER ID UU13113748
[2016-12-07 11:10] LABS: INTER. NORMALIZED RATIO 1.4; PROTHROMBIN TIME 14.3 (9.2-11.2); PTT 30.2 (25-32)
[2016-12-07 14:13] LABS: POINT-OF-CARE METER ID UU13113748
[2016-12-07 17:09] LABS: TYPE OF FLUID THORACENTESIS
[2016-12-07 17:45] LABS: BODY FLUID LDH 181 IU/L; BODY FLUID PROTEIN 3.3 G/DL
[2016-12-07 18:10] LABS: POINT-OF-CARE METER ID UU13113748
[2016-12-07 18:39] LABS: BODY FLUID EOSINOPHILS 0 % (0-25); MONO RAW COUNT 84; MONONUCLEAR WBC'S 84 %; POLY RAW COUNT 16; POLYNUCLEAR WBC'S 16 % (0-25)
[2016-12-07 19:00] LABS: BODY FLUID RBC'S 2000 /MM^3 (0-100); BODY FLUID WBC'S 519 /MM^3 (0-500)
[2016-12-07 22:14] LABS: POINT-OF-CARE METER ID UU13113748
[2016-12-08] VITALS (23 sets, daily range): BP systolic 85–119; BP diastolic 55–76
[2016-12-08 02:38] LABS: POINT-OF-CARE METER ID UU14174217
[2016-12-08 04:39] LABS: HEMATOCRIT 26.3 % (38.0-50.0); MCH 28.4 PG (29.0-34.0); MCHC 30.4 G/DL (30.0-36.0); MCV 93.3 FL (86-99); MEAN PLAT.VOLUME 11.8 uM^3 (9.0-12.4); PLATELET COUNT 78 K/uL (156-360); RBC DIS.WIDTH-CV 19.8 % (11.8-14.6); RED BLOOD COUNT 2.82 M/uL (4.00-5.50); WHITE BLOOD COUNT 4.6 K/uL (4.1-10.2)
[2016-12-08 04:48] LABS: CHLORIDE 117 mEq/L (99-109); POTASSIUM 4.4 mEq/L (3.7-5.4); SODIUM 152 mEq/L (136-147)
[2016-12-08 04:49] LABS: MAGNESIUM 1.9 mg/dL (1.3-2.7)
[2016-12-08 04:50] LABS: GLUCOSE 200 mg/dL (70-99)
[2016-12-08 04:51] LABS: ANION GAP 8 MEQ/L (2-14)
[2016-12-08 04:54] LABS: GFR ESTIMATE (CALCULATED) > 59 mL/min/
[2016-12-08 04:55] LABS: UREA NITROGEN (BUN) 118 mg/dL (9-23)
[2016-12-08 05:34] LABS: EOSINOPHIL (%) 2.6 % (0-5); EOSINOPHIL COUNT 0.1 K/uL (0-0.3); HEMATOLOGY COMMENT 1 SMEAR COMPATIBLE; IMMATURE GRANULOCYTE (%) 0.9 % (0.0-0.7); INSTRUMENT ABS NEUTROPHIL CT 3.8 K/uL; LYMPHOCYTE COUNT 0.3 K/uL (1.0-2.8); MONOCYTE COUNT 0.2 K/uL (0-0.8); NEUTROPHIL COUNT 3.8 K/uL (1.8-6.4)
[2016-12-08 10:14] LABS: POINT-OF-CARE METER ID UU14174217
[2016-12-08 14:13] LABS: POINT-OF-CARE METER ID UU14174217
[2016-12-08 17:15] LABS: POINT-OF-CARE METER ID UU14174217
[2016-12-08 22:52] LABS: POINT-OF-CARE METER ID UU14174217
[2016-12-09] VITALS (25 sets, daily range): BP systolic 0–119; BP diastolic 0–75
[2016-12-09 02:27] LABS: POINT-OF-CARE METER ID UU13113803
[2016-12-09 05:32] LABS: HEMATOCRIT 26.2 % (38.0-50.0); MCH 28.8 PG (29.0-34.0); MCHC 30.5 G/DL (30.0-36.0); MCV 94.2 FL (86-99); MEAN PLAT.VOLUME 12.9 uM^3 (9.0-12.4); PLATELET COUNT 89 K/uL (156-360); RBC DIS.WIDTH-CV 19.5 % (11.8-14.6); RBC DIS.WIDTH-SD 63.2 % (39-53); RED BLOOD COUNT 2.78 M/uL (4.00-5.50); WHITE BLOOD COUNT 3.7 K/uL (4.1-10.2)
[2016-12-09 06:12] LABS: ANION GAP 9 MEQ/L (2-14); CHLORIDE 114 MEQ/L (99-109); GFR ESTIMATE (CALCULATED) > 59 mL/min/; GLUCOSE 164 mg/dL (70-99); MAGNESIUM 2.4 mg/dl (1.3-2.7); POTASSIUM 4.1 MEQ/L (3.7-5.4); SAMPLE HEMOLYSIS CHECK 0; SAMPLE ICTERIC CHECK 0; SAMPLE LIPEMIA CHECK 0; SODIUM 151 MEQ/L (136-147)
[2016-12-09 06:19] LABS: POINT-OF-CARE METER ID UU14174217
[2016-12-09 06:44] LABS: UREA NITROGEN (BUN) 109 mg/dL (9-23)
[2016-12-09 06:49] LABS: EOSINOPHIL (%) 3.5 % (0-5); EOSINOPHIL COUNT 0.1 K/uL (0-0.3); IMMATURE GRANULOCYTE (%) 0.8 % (0.0-0.7); INSTRUMENT ABS NEUTROPHIL CT 2.9 K/uL; LYMPHOCYTE COUNT 0.4 K/uL (1.0-2.8); MONOCYTE (%) 7.5 % (3-12); MONOCYTE COUNT 0.3 K/uL (0-0.8); NEUTROPHIL (%) 78.5 % (45-76); NEUTROPHIL COUNT 2.9 K/uL (1.8-6.4)
[2016-12-09 10:00] LABS: POINT-OF-CARE METER ID UU13113803
[2016-12-09 14:11] LABS: POINT-OF-CARE METER ID UU13113803
[2016-12-09 17:58] LABS: POINT-OF-CARE METER ID UU13113803
[2016-12-09 21:55] LABS: POINT-OF-CARE METER ID UU13113803
[2016-12-10] VITALS (23 sets, daily range): BP systolic 92–120; BP diastolic 53–78
[2016-12-10 06:02] LABS: HEMATOCRIT 24.5 % (38.0-50.0); MCH 29.8 PG (29.0-34.0); MCHC 31.8 G/DL (30.0-36.0); MCV 93.5 FL (86-99); MEAN PLAT.VOLUME 12.8 uM^3 (9.0-12.4); PLATELET COUNT 83 K/uL (156-360); RBC DIS.WIDTH-CV 19.8 % (11.8-14.6); RBC DIS.WIDTH-SD 65.3 % (39-53); RED BLOOD COUNT 2.62 M/uL (4.00-5.50); WHITE BLOOD COUNT 3.5 K/uL (4.1-10.2)
[2016-12-10 06:07] LABS: POINT-OF-CARE METER ID UU13113731
[2016-12-10 06:39] LABS: ANION GAP 7 MEQ/L (2-14); CHLORIDE 116 MEQ/L (99-109); GFR ESTIMATE (CALCULATED) > 59 mL/min/; GLUCOSE 133 mg/dL (70-99); MAGNESIUM 2.5 mg/dl (1.3-2.7); SAMPLE HEMOLYSIS CHECK 0; SAMPLE ICTERIC CHECK 0; SAMPLE LIPEMIA CHECK 0; SODIUM 151 MEQ/L (136-147)
[2016-12-10 06:42] LABS: UREA NITROGEN (BUN) 106 mg/dL (9-23)
[2016-12-10 07:41] LABS: EOSINOPHIL (%) 3.1 % (0-5); EOSINOPHIL COUNT 0.1 K/uL (0-0.3); IMMATURE GRANULOCYTE (%) 0.6 % (0.0-0.7); INSTRUMENT ABS NEUTROPHIL CT 2.7 K/uL; LYMPHOCYTE COUNT 0.3 K/uL (1.0-2.8); MONOCYTE (%) 9.4 % (3-12); MONOCYTE COUNT 0.3 K/uL (0-0.8); NEUTROPHIL (%) 77.5 % (45-76); NEUTROPHIL COUNT 2.7 K/uL (1.8-6.4)
[2016-12-10 13:29] LABS: AMYLASE 43 IU/L (1-118); LIPASE 41 U/L (1.0-51.0)
[2016-12-11] VITALS (28 sets, daily range): BP systolic 81–131; BP diastolic 40–84
[2016-12-11 01:25] LABS: POINT-OF-CARE METER ID UU13113748
[2016-12-11 06:02] LABS: HEMATOCRIT 25.4 % (38.0-50.0); MCH 28.3 PG (29.0-34.0); MCHC 30.3 G/DL (30.0-36.0); MCV 93.4 FL (86-99); MEAN PLAT.VOLUME 12.6 uM^3 (9.0-12.4); PLATELET COUNT 100 K/uL (156-360); RBC DIS.WIDTH-SD 63.5 % (39-53); RED BLOOD COUNT 2.72 M/uL (4.00-5.50); WHITE BLOOD COUNT 4.3 K/uL (4.1-10.2)
[2016-12-11 06:22] LABS: ANION GAP 7 MEQ/L (2-14); CHLORIDE 114 MEQ/L (99-109); GFR ESTIMATE (CALCULATED) > 59 mL/min/; GLUCOSE 186 mg/dL (70-99); MAGNESIUM 2.4 mg/dl (1.3-2.7); POTASSIUM 3.8 MEQ/L (3.7-5.4); SAMPLE HEMOLYSIS CHECK 0; SAMPLE ICTERIC CHECK 0; SAMPLE LIPEMIA CHECK 0; SODIUM 148 MEQ/L (136-147); UREA NITROGEN (BUN) 96 mg/dL (9-23)
[2016-12-11 06:25] LABS: POINT-OF-CARE METER ID UU14174217
[2016-12-11 07:14] LABS: EOSINOPHIL (%) 2.1 % (0-5); EOSINOPHIL COUNT 0.1 K/uL (0-0.3); IMMATURE GRANULOCYTE (%) 0.5 % (0.0-0.7); INSTRUMENT ABS NEUTROPHIL CT 3.4 K/uL; LYMPHOCYTE COUNT 0.4 K/uL (1.0-2.8); MONOCYTE (%) 9.7 % (3-12); MONOCYTE COUNT 0.4 K/uL (0-0.8); NEUTROPHIL (%) 79.2 % (45-76); NEUTROPHIL COUNT 3.4 K/uL (1.8-6.4)
[2016-12-11 15:02] LABS: Heparin Induced Plt Ab Negative (Negative)
[2016-12-11 17:22] LABS: UFH SRA Result Negative (Negative)
[2016-12-11 18:30] LABS: BASE EXCESS 3.5 mEq/L (-3 to +3); BICARBONATE 26.7 mEq/L (22-26); PCO2 35 mm Hg (35-45); PO2 78 mm Hg (80-100); pH 7.49 (7.35-7.45)
[2016-12-11 18:31] LABS: COMMENTS - BLOOD GASES NAC+; DEVICE VENT; FI02 30 %; MODE TC; SITE RR
[2016-12-11 18:32] LABS: PEEP 5 CM/H20; TOTAL RESP RATE 27 resp/min
[2016-12-12] VITALS (20 sets, daily range): BP systolic 85–137; BP diastolic 39–74
[2016-12-12 00:55] LABS: POINT-OF-CARE METER ID UU14174217
[2016-12-12 05:08] LABS: POINT-OF-CARE METER ID UU13113803
[2016-12-12 06:32] LABS: ANION GAP 7 MEQ/L (2-14); CHLORIDE 113 MEQ/L (99-109); GFR ESTIMATE (CALCULATED) > 59 mL/min/; GLUCOSE 123 mg/dL (70-99); MAGNESIUM 2.4 mg/dl (1.3-2.7); POTASSIUM 3.8 MEQ/L (3.7-5.4); SAMPLE HEMOLYSIS CHECK 0; SAMPLE ICTERIC CHECK 0; SAMPLE LIPEMIA CHECK 0; SODIUM 147 MEQ/L (136-147); UREA NITROGEN (BUN) 84 mg/dL (9-23)
[2016-12-12 11:59] LABS: POINT-OF-CARE METER ID UU13113803
[2016-12-12 16:57] LABS: POINT-OF-CARE METER ID UU13113731
[2016-12-12 23:46] LABS: POINT-OF-CARE METER ID UU13113803
[2016-12-13] VITALS (16 sets, daily range): BP systolic 101–136; BP diastolic 49–69
[2016-12-13 06:39] LABS: ANION GAP 6 MEQ/L (2-14); CHLORIDE 115 MEQ/L (99-109); GFR ESTIMATE (CALCULATED) > 59 mL/min/; MAGNESIUM 2.1 mg/dl (1.3-2.7); POTASSIUM 3.7 MEQ/L (3.7-5.4); SAMPLE HEMOLYSIS CHECK 0; SAMPLE ICTERIC CHECK 0; SAMPLE LIPEMIA CHECK 0; SODIUM 147 MEQ/L (136-147); UREA NITROGEN (BUN) 81 mg/dL (9-23)
[2016-12-13 06:40] LABS: GLUCOSE 186 mg/dL (70-99)
[2016-12-13 11:15] LABS: POINT-OF-CARE METER ID UU13113748
[2016-12-13 12:42] LABS: INTER. NORMALIZED RATIO 1.2; PROTHROMBIN TIME 12.2 (9.2-11.2); PTT 29.6 (25-32)
[2016-12-13 17:03] LABS: POINT-OF-CARE METER ID UU13113748
[2016-12-13 23:30] LABS: POINT-OF-CARE METER ID UU13113748; POINT-OF-CARE USER ID LABHNS84
[2016-12-14] VITALS (16 sets, daily range): BP systolic 104–129; BP diastolic 49–73
[2016-12-14 04:58] LABS: POINT-OF-CARE USER ID LABHNS84
[2016-12-14 05:20] LABS: EOSINOPHIL (%) 1.1 % (0-5); HEMATOCRIT 23.9 % (38.0-50.0); IMMATURE GRANULOCYTE (%) 0.3 % (0.0-0.7); INSTRUMENT ABS NEUTROPHIL CT 3.1 K/uL; LYMPHOCYTE COUNT 0.3 K/uL (1.0-2.8); MCHC 30.1 G/DL (30.0-36.0); MEAN PLAT.VOLUME 11.2 uM^3 (9.0-12.4); MONOCYTE (%) 8.6 % (3-12); MONOCYTE COUNT 0.3 K/uL (0-0.8); NEUTROPHIL (%) 81.7 % (45-76); NEUTROPHIL COUNT 3.1 K/uL (1.8-6.4); PLATELET COUNT 127 K/uL (156-360); RBC DIS.WIDTH-CV 18.3 % (11.8-14.6); RBC DIS.WIDTH-SD 61.1 % (39-53); RED BLOOD COUNT 2.57 M/uL (4.00-5.50); WHITE BLOOD COUNT 3.7 K/uL (4.1-10.2)
[2016-12-14 05:54] LABS: ALKALINE PHOSPHATASE 90 IU/L (3-129); ANION GAP 7 MEQ/L (2-14); CHLORIDE 116 MEQ/L (99-109); DIRECT BILIRUBIN 0.1 mg/dL (0.0-0.3); GFR ESTIMATE (CALCULATED) > 59 mL/min/; GLUCOSE 121 mg/dL (70-99); MAGNESIUM 2.1 mg/dl (1.3-2.7); POTASSIUM 3.5 MEQ/L (3.7-5.4); PREALBUMIN 11.3 mg/dL (10-40); SAMPLE HEMOLYSIS CHECK 0; SAMPLE ICTERIC CHECK 0; SAMPLE LIPEMIA CHECK 0; SODIUM 148 MEQ/L (136-147); TOTAL BILIRUBIN 0.3 MG/DL (0.0-1.0); TRIGLYCERIDES 94 MG/DL (Normal: <150); UREA NITROGEN (BUN) 74 mg/dL (9-23)
[2016-12-14 12:08] LABS: POINT-OF-CARE METER ID UU13113731
[2016-12-14 18:07] LABS: POINT-OF-CARE METER ID UU13113731; POINT-OF-CARE USER ID 606021424
[2016-12-15] VITALS (19 sets, daily range): BP systolic 110–133; BP diastolic 57–76
[2016-12-15 00:36] LABS: POINT-OF-CARE METER ID UU13113731
[2016-12-15 05:15] LABS: CHLORIDE 118 mEq/L (99-109); POTASSIUM 3.8 mEq/L (3.7-5.4); SODIUM 147 mEq/L (136-147)
[2016-12-15 05:16] LABS: MAGNESIUM 1.7 mg/dL (1.3-2.7)
[2016-12-15 05:17] LABS: GLUCOSE 135 mg/dL (70-99)
[2016-12-15 05:18] LABS: ANION GAP 7 MEQ/L (2-14)
[2016-12-15 05:21] LABS: GFR ESTIMATE (CALCULATED) > 59 mL/min/
[2016-12-15 05:22] LABS: UREA NITROGEN (BUN) 77 mg/dL (9-23)
[2016-12-15 06:03] LABS: POINT-OF-CARE METER ID UU13113731
[2016-12-15 11:32] LABS: URINE UREA NITROGEN 24705 MG/24 HR
[2016-12-15 12:04] LABS: POINT-OF-CARE METER ID UU13113803
[2016-12-15 17:28] LABS: POINT-OF-CARE METER ID UU13113803
[2016-12-15 23:44] LABS: POINT-OF-CARE METER ID UU13113731
[2016-12-16] VITALS (14 sets, daily range): BP systolic 109–140; BP diastolic 61–81
[2016-12-16 05:47] LABS: HEMATOCRIT 24.5 % (38.0-50.0); MCHC 30.6 G/DL (30.0-36.0); MCV 91.4 FL (86-99); MEAN PLAT.VOLUME 10.8 uM^3 (9.0-12.4); PLATELET COUNT 138 K/uL (156-360); RBC DIS.WIDTH-CV 18.2 % (11.8-14.6); RBC DIS.WIDTH-SD 58.9 % (39-53); RED BLOOD COUNT 2.68 M/uL (4.00-5.50); WHITE BLOOD COUNT 3.5 K/uL (4.1-10.2)
[2016-12-16 06:00] LABS: POINT-OF-CARE METER ID UU13113731
[2016-12-16 06:09] LABS: ANION GAP 8 MEQ/L (2-14); CHLORIDE 116 MEQ/L (99-109); GFR ESTIMATE (CALCULATED) > 59 mL/min/; GLUCOSE 165 mg/dL (70-99); MAGNESIUM 2.1 mg/dl (1.3-2.7); SAMPLE HEMOLYSIS CHECK 0; SAMPLE ICTERIC CHECK 0; SAMPLE LIPEMIA CHECK 0; SODIUM 146 MEQ/L (136-147); UREA NITROGEN (BUN) 65 mg/dL (9-23)
[2016-12-16 12:35] LABS: POINT-OF-CARE METER ID UU13113731
[2016-12-16 17:24] LABS: POINT-OF-CARE METER ID UU13113731
[2016-12-16 23:51] LABS: POINT-OF-CARE METER ID UU13113731
[2016-12-17] VITALS (12 sets, daily range): BP systolic 99–126; BP diastolic 33–74
[2016-12-17 05:26] LABS: POINT-OF-CARE METER ID UU14174217
[2016-12-17 05:59] LABS: ANION GAP 7 MEQ/L (2-14); CHLORIDE 116 MEQ/L (99-109); GFR ESTIMATE (CALCULATED) > 59 mL/min/; MAGNESIUM 2.1 mg/dl (1.3-2.7); POTASSIUM 4.4 MEQ/L (3.7-5.4); SAMPLE HEMOLYSIS CHECK 0; SAMPLE ICTERIC CHECK 0; SAMPLE LIPEMIA CHECK 0; SODIUM 145 MEQ/L (136-147); UREA NITROGEN (BUN) 67 mg/dL (9-23)
[2016-12-17 06:00] LABS: GLUCOSE 250 mg/dL (70-99)
[2016-12-17 11:38] LABS: POINT-OF-CARE METER ID UU14162636
[2016-12-17 14:16] LABS: C DIFF TOXIN NEGATIVE (NEGATIVE)
[2016-12-17 14:18] LABS: PROBE CHECK PASS; SPECIMEN PROCESSING CONTROL PASS
[2016-12-17 17:57] LABS: POINT-OF-CARE METER ID UU14162636
[2016-12-17 20:45] LABS: POINT-OF-CARE METER ID UU14162636; POINT-OF-CARE USER ID PHATLC
[2016-12-18] VITALS (13 sets, daily range): BP systolic 105–132; BP diastolic 47–78
[2016-12-18 01:04] LABS: POINT-OF-CARE METER ID UU14162636; POINT-OF-CARE USER ID PHATLC
[2016-12-18 05:43] LABS: POINT-OF-CARE METER ID UU14162636; POINT-OF-CARE USER ID PHATLC
[2016-12-18 05:51] LABS: HEMATOCRIT 24.5 % (38.0-50.0); MCH 28.7 PG (29.0-34.0); MCV 92.5 FL (86-99); MEAN PLAT.VOLUME 10.9 uM^3 (9.0-12.4); PLATELET COUNT 164 K/uL (156-360); RBC DIS.WIDTH-CV 18.9 % (11.8-14.6); RBC DIS.WIDTH-SD 62.6 % (39-53); RED BLOOD COUNT 2.65 M/uL (4.00-5.50); WHITE BLOOD COUNT 4.3 K/uL (4.1-10.2)
[2016-12-18 06:21] LABS: ANION GAP 7 MEQ/L (2-14); CHLORIDE 119 MEQ/L (99-109); GFR ESTIMATE (CALCULATED) > 59 mL/min/; GLUCOSE 191 mg/dL (70-99); MAGNESIUM 2.2 mg/dl (1.3-2.7); POTASSIUM 4.1 MEQ/L (3.7-5.4); SAMPLE HEMOLYSIS CHECK 0; SAMPLE ICTERIC CHECK 0; SAMPLE LIPEMIA CHECK 0; SODIUM 148 MEQ/L (136-147); UREA NITROGEN (BUN) 66 mg/dL (9-23)
[2016-12-18 12:58] LABS: POINT-OF-CARE METER ID UU14162636
[2016-12-18 17:36] LABS: POINT-OF-CARE METER ID UU14162636
[2016-12-19] VITALS (11 sets, daily range): BP systolic 109–133; BP diastolic 57–82
[2016-12-19 00:59] LABS: POINT-OF-CARE METER ID UU14162636
[2016-12-19 05:41] LABS: POINT-OF-CARE METER ID UU14208751
[2016-12-19 05:52] LABS: HEMATOCRIT 26.7 % (38.0-50.0); MCH 28.9 PG (29.0-34.0); MCHC 30.3 G/DL (30.0-36.0); MCV 95.4 FL (86-99); MEAN PLAT.VOLUME 10.8 uM^3 (9.0-12.4); PLATELET COUNT 163 K/uL (156-360); RBC DIS.WIDTH-CV 19.5 % (11.8-14.6); RBC DIS.WIDTH-SD 65.3 % (39-53); WHITE BLOOD COUNT 4.2 K/uL (4.1-10.2)
[2016-12-19 06:20] LABS: ANION GAP 8 MEQ/L (2-14); CHLORIDE 119 MEQ/L (99-109); GFR ESTIMATE (CALCULATED) > 59 mL/min/; GLUCOSE 140 mg/dL (70-99); MAGNESIUM 2.2 mg/dl (1.3-2.7); POTASSIUM 4.1 MEQ/L (3.7-5.4); SAMPLE HEMOLYSIS CHECK 0; SAMPLE ICTERIC CHECK 0; SAMPLE LIPEMIA CHECK 0; SODIUM 151 MEQ/L (136-147); UREA NITROGEN (BUN) 57 mg/dL (9-23)
[2016-12-19 12:34] LABS: POINT-OF-CARE METER ID UU14162636
[2016-12-19 17:24] LABS: POINT-OF-CARE METER ID UU14162636
[2016-12-20] VITALS (9 sets, daily range): BP systolic 92–120; BP diastolic 61–80
[2016-12-20] LABS: POINT-OF-CARE METER ID UU14208751
[2016-12-20 04:44] LABS: HEMATOCRIT 24.4 % (38.0-50.0); MCH 28.4 PG (29.0-34.0); MCHC 29.9 G/DL (30.0-36.0); MCV 94.9 FL (86-99); PLATELET COUNT 167 K/uL (156-360); RBC DIS.WIDTH-CV 19.6 % (11.8-14.6); RBC DIS.WIDTH-SD 66.2 % (39-53); RED BLOOD COUNT 2.57 M/uL (4.00-5.50)
[2016-12-20 05:02] LABS: CHLORIDE 121 mEq/L (99-109); POTASSIUM 4.1 mEq/L (3.7-5.4); SODIUM 149 mEq/L (136-147)
[2016-12-20 05:03] LABS: MAGNESIUM 1.9 mg/dL (1.3-2.7)
[2016-12-20 05:04] LABS: GLUCOSE 121 mg/dL (70-99)
[2016-12-20 05:06] LABS: ANION GAP 5 MEQ/L (2-14)
[2016-12-20 05:08] LABS: GFR ESTIMATE (CALCULATED) > 59 mL/min/
[2016-12-20 05:09] LABS: UREA NITROGEN (BUN) 55 mg/dL (9-23)
[2016-12-20 05:59] LABS: POINT-OF-CARE METER ID UU13113748
[2016-12-20 11:31] LABS: POINT-OF-CARE METER ID UU13113748
[2016-12-20 17:19] LABS: POINT-OF-CARE METER ID UU13113748
[2016-12-21] VITALS (11 sets, daily range): BP systolic 103–128; BP diastolic 55–73
[2016-12-21 00:18] LABS: POINT-OF-CARE METER ID UU13113748
[2016-12-21 05:54] LABS: HEMATOCRIT 24.4 % (38.0-50.0); MCHC 29.5 G/DL (30.0-36.0); MCV 98.4 FL (86-99); MEAN PLAT.VOLUME 10.5 uM^3 (9.0-12.4); PLATELET COUNT 186 K/uL (156-360); RBC DIS.WIDTH-CV 19.9 % (11.8-14.6); RBC DIS.WIDTH-SD 70.4 % (39-53); RED BLOOD COUNT 2.48 M/uL (4.00-5.50)
[2016-12-21 06:03] LABS: POINT-OF-CARE METER ID UU14174217
[2016-12-21 12:34] LABS: POINT-OF-CARE METER ID UU14174217
[2016-12-21 18:17] LABS: POINT-OF-CARE METER ID UU14162636; POINT-OF-CARE USER ID 606021424
[2016-12-22] VITALS: BP 129/66
[2016-12-22 00:55] LABS: POINT-OF-CARE USER ID RADDRS44
[2016-12-22 04:00] VITALS: BP 127/78
[2016-12-22 06:00] VITALS: BP 115/63
[2016-12-22 06:15] LABS: POINT-OF-CARE METER ID UU14162636; POINT-OF-CARE USER ID RADDRS44
[2016-12-22 06:21] LABS: HEMATOCRIT 24.4 % (38.0-50.0); MCH 28.2 PG (29.0-34.0); MCHC 28.7 G/DL (30.0-36.0); MCV 98.4 FL (86-99); MEAN PLAT.VOLUME 10.5 uM^3 (9.0-12.4); PLATELET COUNT 196 K/uL (156-360); RBC DIS.WIDTH-CV 20.1 % (11.8-14.6); RBC DIS.WIDTH-SD 71.1 % (39-53); RED BLOOD COUNT 2.48 M/uL (4.00-5.50); WHITE BLOOD COUNT 3.6 K/uL (4.1-10.2)
[2016-12-22 07:25] LABS: ALKALINE PHOSPHATASE 87 IU/L (3-129); ANION GAP 8 MEQ/L (2-14); CHLORIDE 120 MEQ/L (99-109); GFR ESTIMATE (CALCULATED) > 59 mL/min/; POTASSIUM 4.3 MEQ/L (3.7-5.4); SAMPLE HEMOLYSIS CHECK 0; SAMPLE ICTERIC CHECK 0; SAMPLE LIPEMIA CHECK 0; SODIUM 151 MEQ/L (136-147); TOTAL BILIRUBIN 0.2 MG/DL (0.0-1.0); UREA NITROGEN (BUN) 64 mg/dL (9-23)
[2016-12-22 07:26] LABS: GLUCOSE 192 mg/dL (70-99)
[2016-12-22 08:00] VITALS: BP 126/67
[2016-12-22 12:00] VITALS: BP 125/69
[2016-12-22 20:25] LABS: POINT-OF-CARE METER ID UU14162636
[2016-12-23 04:57] LABS: HEMATOCRIT 25.3 % (38.0-50.0); MCH 28.4 PG (29.0-34.0); MCHC 29.2 G/DL (30.0-36.0); MCV 96.9 FL (86-99); MEAN PLAT.VOLUME 10.6 uM^3 (9.0-12.4); PLATELET COUNT 199 K/uL (156-360); RBC DIS.WIDTH-CV 20.2 % (11.8-14.6); RBC DIS.WIDTH-SD 71.5 % (39-53); RED BLOOD COUNT 2.61 M/uL (4.00-5.50); WHITE BLOOD COUNT 3.9 K/uL (4.1-10.2)
[2016-12-23 05:09] LABS: CHLORIDE 122 mEq/L (99-109); POTASSIUM 4.5 mEq/L (3.7-5.4); SODIUM 151 mEq/L (136-147)
[2016-12-23 05:11] LABS: GLUCOSE 186 mg/dL (70-99)
[2016-12-23 05:12] LABS: ANION GAP 4 MEQ/L (2-14)
[2016-12-23 05:15] LABS: GFR ESTIMATE (CALCULATED) > 59 mL/min/
[2016-12-23 05:16] LABS: UREA NITROGEN (BUN) 68 mg/dL (9-23)
[2016-12-23 06:01] LABS: POINT-OF-CARE METER ID UU14162636
[2016-12-23 08:00] VITALS: BP 119/60
[2016-12-23 10:00] VITALS: BP 99/60
[2016-12-23 11:52] LABS: POINT-OF-CARE METER ID UU14162636
[2016-12-23 12:00] VITALS: BP 108/63
[2016-12-23 14:00] VITALS: BP 109/62
[2016-12-23 16:00] VITALS: BP 94/60
[2016-12-23 17:05] LABS: POINT-OF-CARE METER ID UU14162636
[2016-12-23 22:26] LABS: POINT-OF-CARE METER ID UU13113748
[2016-12-24 00:34] LABS: POINT-OF-CARE METER ID UU13113748
[2016-12-24 04:26] LABS: POINT-OF-CARE METER ID UU13113748
[2016-12-24 05:13] LABS: HEMATOCRIT 26.6 % (38.0-50.0); MCHC 30.1 G/DL (30.0-36.0); MCV 96.4 FL (86-99); MEAN PLAT.VOLUME 11.1 uM^3 (9.0-12.4); NRBC (%) 0.6 /100 WBC (0-0); PLATELET COUNT 171 K/uL (156-360); RBC DIS.WIDTH-CV 20.4 % (11.8-14.6); RBC DIS.WIDTH-SD 70.9 % (39-53); RED BLOOD COUNT 2.76 M/uL (4.00-5.50); WHITE BLOOD COUNT 3.5 K/uL (4.1-10.2)
[2016-12-24 05:29] LABS: CHLORIDE 122 mEq/L (99-109); SODIUM 150 mEq/L (136-147)
[2016-12-24 05:31] LABS: GLUCOSE 173 mg/dL (70-99)
[2016-12-24 05:32] LABS: ANION GAP 5 MEQ/L (2-14)
[2016-12-24 05:33] LABS: TOTAL BILIRUBIN 0.2 mg/dL (0.0-1.0)
[2016-12-24 05:35] LABS: ALKALINE PHOSPHATASE 91 IU/L (3-129); GFR ESTIMATE (CALCULATED) > 59 mL/min/
[2016-12-24 05:36] LABS: UREA NITROGEN (BUN) 63 mg/dL (9-23)
[2016-12-24 05:37] LABS: DIRECT BILIRUBIN 0.1 mg/dL (0.0-0.3)
[2016-12-24 06:26] LABS: POINT-OF-CARE METER ID UU14174217
[2016-12-24 08:00] VITALS: BP 111/60
[2016-12-24 11:28] LABS: POINT-OF-CARE METER ID UU13113748
[2016-12-24 12:00] VITALS: BP 120/62
[2016-12-24 12:08] LABS: POINT-OF-CARE METER ID UU14174217
[2016-12-24 16:00] VITALS: BP 111/61
[2016-12-24 18:03] LABS: POINT-OF-CARE METER ID UU13113748
[2016-12-24 20:00] VITALS: BP 118/65
[2016-12-24 22:00] VITALS: BP 113/56
[2016-12-24 23:09] LABS: POINT-OF-CARE METER ID UU14174217
[2016-12-25] VITALS (14 sets, daily range): BP systolic 107–123; BP diastolic 58–69
[2016-12-25 00:32] LABS: POINT-OF-CARE METER ID UU14174217
[2016-12-25 06:12] LABS: POINT-OF-CARE METER ID UU13113748
[2016-12-25 06:19] LABS: ANION GAP 4 MEQ/L (2-14); CHLORIDE 116 MEQ/L (99-109); GFR ESTIMATE (CALCULATED) > 59 mL/min/; GLUCOSE 195 mg/dL (70-99); POTASSIUM 4.3 MEQ/L (3.7-5.4); SAMPLE HEMOLYSIS CHECK 0; SAMPLE ICTERIC CHECK 0; SAMPLE LIPEMIA CHECK 0; SODIUM 146 MEQ/L (136-147); UREA NITROGEN (BUN) 57 mg/dL (9-23)
[2016-12-25 06:27] LABS: HEMATOCRIT 23.3 % (38.0-50.0); MCH 28.8 PG (29.0-34.0); MCHC 29.6 G/DL (30.0-36.0); MCV 97.1 FL (86-99); MEAN PLAT.VOLUME 10.7 uM^3 (9.0-12.4); PLATELET COUNT 202 K/uL (156-360); RBC DIS.WIDTH-CV 19.6 % (11.8-14.6); RBC DIS.WIDTH-SD 68.7 % (39-53); WHITE BLOOD COUNT 3.4 K/uL (4.1-10.2)
[2016-12-25 13:58] LABS: POINT-OF-CARE METER ID UU13113731
[2016-12-25 18:31] LABS: POINT-OF-CARE METER ID UU13113731
[2016-12-26] VITALS (7 sets, daily range): BP systolic 113–129; BP diastolic 63–70
[2016-12-26 01:08] LABS: POINT-OF-CARE METER ID UU14208751
[2016-12-26 05:28] LABS: POINT-OF-CARE METER ID UU14208751
[2016-12-26 08:34] LABS: HEMATOCRIT 27.5 % (38.0-50.0); MCH 29.2 PG (29.0-34.0); MCHC 30.9 G/DL (30.0-36.0); MCV 94.5 FL (86-99); PLATELET COUNT 197 K/uL (156-360); RBC DIS.WIDTH-CV 18.7 % (11.8-14.6); RBC DIS.WIDTH-SD 63.8 % (39-53); WHITE BLOOD COUNT 4.1 K/uL (4.1-10.2)
[2016-12-26 08:52] LABS: ANION GAP 3 MEQ/L (2-14); CHLORIDE 111 MEQ/L (99-109); MAGNESIUM 1.9 mg/dl (1.3-2.7); POTASSIUM 4.3 MEQ/L (3.7-5.4); SAMPLE HEMOLYSIS CHECK 0; SAMPLE ICTERIC CHECK 0; SAMPLE LIPEMIA CHECK 0; SODIUM 141 MEQ/L (136-147)
[2016-12-26 08:57] LABS: GFR ESTIMATE (CALCULATED) > 59 mL/min/; GLUCOSE 139 mg/dL (70-99); UREA NITROGEN (BUN) 58 mg/dL (9-23)
[2016-12-26 09:08] LABS: RED BLOOD COUNT 2.91 M/uL (4.00-5.50)
[2016-12-26 13:08] LABS: POINT-OF-CARE METER ID UU14208751
[2016-12-26 18:37] LABS: POINT-OF-CARE METER ID UU13113731
[2016-12-26 20:27] LABS: POINT-OF-CARE METER ID UU13113731; POINT-OF-CARE USER ID PHATLC
[2016-12-26 23:33] LABS: POINT-OF-CARE METER ID UU13113731; POINT-OF-CARE USER ID ENVSME70
[2016-12-27] VITALS (14 sets, daily range): BP systolic 107–138; BP diastolic 51–72
[2016-12-27 05:12] LABS: HEMATOCRIT 25.4 % (38.0-50.0); MCH 28.4 PG (29.0-34.0); MCHC 30.7 G/DL (30.0-36.0); MCV 92.4 FL (86-99); MEAN PLAT.VOLUME 10.4 uM^3 (9.0-12.4); PLATELET COUNT 190 K/uL (156-360); RBC DIS.WIDTH-CV 18.1 % (11.8-14.6); RBC DIS.WIDTH-SD 59.7 % (39-53); RED BLOOD COUNT 2.75 M/uL (4.00-5.50); WHITE BLOOD COUNT 4.6 K/uL (4.1-10.2)
[2016-12-27 05:36] LABS: ANION GAP 3 MEQ/L (2-14); CHLORIDE 109 MEQ/L (99-109); GFR ESTIMATE (CALCULATED) > 59 mL/min/; GLUCOSE 175 mg/dL (70-99); POTASSIUM 4.2 MEQ/L (3.7-5.4); SAMPLE HEMOLYSIS CHECK 0; SAMPLE ICTERIC CHECK 0; SAMPLE LIPEMIA CHECK 0; SODIUM 138 MEQ/L (136-147); UREA NITROGEN (BUN) 52 mg/dL (9-23)
[2016-12-27 05:51] LABS: POINT-OF-CARE METER ID UU13113731; POINT-OF-CARE USER ID PHATLC
[2016-12-27 11:45] LABS: POINT-OF-CARE METER ID UU13113731
[2016-12-27 17:06] LABS: POINT-OF-CARE METER ID UU13113731
[2016-12-27 22:30] LABS: POINT-OF-CARE METER ID UU13113731; POINT-OF-CARE USER ID PHATLC
[2016-12-28] VITALS (18 sets, daily range): BP systolic 106–131; BP diastolic 56–74
[2016-12-28 01:06] LABS: POINT-OF-CARE METER ID UU13113731; POINT-OF-CARE USER ID PHATLC
[2016-12-28 06:06] LABS: POINT-OF-CARE METER ID UU13113731; POINT-OF-CARE USER ID PHATLC
[2016-12-28 06:21] LABS: HEMATOCRIT 25.9 % (38.0-50.0); MCH 27.9 PG (29.0-34.0); MCHC 30.1 G/DL (30.0-36.0); MCV 92.5 FL (86-99); MEAN PLAT.VOLUME 10.4 uM^3 (9.0-12.4); PLATELET COUNT 202 K/uL (156-360); RBC DIS.WIDTH-CV 17.6 % (11.8-14.6); RBC DIS.WIDTH-SD 60.6 % (39-53); WHITE BLOOD COUNT 5.2 K/uL (4.1-10.2)
[2016-12-28 07:35] LABS: ANION GAP 10 MEQ/L (2-14); CHLORIDE 107 MEQ/L (99-109); GFR ESTIMATE (CALCULATED) > 59 mL/min/; POTASSIUM 4.3 MEQ/L (3.7-5.4); SAMPLE HEMOLYSIS CHECK 0; SAMPLE ICTERIC CHECK 0; SAMPLE LIPEMIA CHECK 0; SODIUM 139 MEQ/L (136-147); UREA NITROGEN (BUN) 52 mg/dL (9-23)
[2016-12-28 07:37] LABS: GLUCOSE 119 mg/dL (70-99)
[2016-12-28 12:21] LABS: POINT-OF-CARE METER ID UU14162636
[2016-12-28 17:33] LABS: POINT-OF-CARE METER ID UU14162636
[2016-12-28 20:45] LABS: POINT-OF-CARE METER ID UU13113748
[2016-12-28 23:33] LABS: POINT-OF-CARE METER ID UU14162636
[2016-12-29] VITALS (10 sets, daily range): BP systolic 94–130; BP diastolic 57–71
[2016-12-29 05:36] LABS: HEMATOCRIT 25.5 % (38.0-50.0); MCHC 30.6 G/DL (30.0-36.0); MCV 91.4 FL (86-99); MEAN PLAT.VOLUME 10.4 uM^3 (9.0-12.4); PLATELET COUNT 192 K/uL (156-360); RBC DIS.WIDTH-CV 17.5 % (11.8-14.6); RBC DIS.WIDTH-SD 58.4 % (39-53); RED BLOOD COUNT 2.79 M/uL (4.00-5.50); WHITE BLOOD COUNT 7.1 K/uL (4.1-10.2)
[2016-12-29 06:11] LABS: POINT-OF-CARE METER ID UU14174217
[2016-12-29 06:32] LABS: ALKALINE PHOSPHATASE 85 IU/L (3-129); ANION GAP 7 MEQ/L (2-14); CHLORIDE 104 MEQ/L (99-109); GFR ESTIMATE (CALCULATED) > 59 mL/min/; GLUCOSE 127 mg/dL (70-99); MAGNESIUM 1.9 mg/dl (1.3-2.7); POTASSIUM 4.2 MEQ/L (3.7-5.4); PREALBUMIN 10.8 mg/dL (10-40); SAMPLE HEMOLYSIS CHECK 0; SAMPLE ICTERIC CHECK 0; SAMPLE LIPEMIA CHECK 0; SODIUM 135 MEQ/L (136-147); TOTAL BILIRUBIN 0.2 MG/DL (0.0-1.0); UREA NITROGEN (BUN) 50 mg/dL (9-23)
[2016-12-29 11:58] LABS: POINT-OF-CARE METER ID UU14174217
[2016-12-29 18:08] LABS: POINT-OF-CARE METER ID UU14174217
[2016-12-29 21:15] LABS: POINT-OF-CARE METER ID UU14174217
[2016-12-30] VITALS (9 sets, daily range): BP systolic 105–132; BP diastolic 57–73
[2016-12-30 01:07] LABS: POINT-OF-CARE METER ID UU14174217
[2016-12-30 06:12] LABS: HEMATOCRIT 25.1 % (38.0-50.0); MCH 28.5 PG (29.0-34.0); MCHC 31.5 G/DL (30.0-36.0); MCV 90.6 FL (86-99); MEAN PLAT.VOLUME 10.2 uM^3 (9.0-12.4); PLATELET COUNT 191 K/uL (156-360); RBC DIS.WIDTH-CV 17.8 % (11.8-14.6); RBC DIS.WIDTH-SD 58.4 % (39-53); RED BLOOD COUNT 2.77 M/uL (4.00-5.50); WHITE BLOOD COUNT 5.6 K/uL (4.1-10.2)
[2016-12-30 06:16] LABS: POINT-OF-CARE METER ID UU14208751
[2016-12-30 06:50] LABS: ANION GAP 5 MEQ/L (2-14); CHLORIDE 104 MEQ/L (99-109); GFR ESTIMATE (CALCULATED) > 59 mL/min/; GLUCOSE 71 mg/dL (70-99); POTASSIUM 4.3 MEQ/L (3.7-5.4); SAMPLE HEMOLYSIS CHECK 0; SAMPLE ICTERIC CHECK 0; SAMPLE LIPEMIA CHECK 0; SODIUM 137 MEQ/L (136-147); UREA NITROGEN (BUN) 52 mg/dL (9-23)
[2016-12-30 12:18] LABS: POINT-OF-CARE METER ID UU13113748
[2016-12-30 17:49] LABS: POINT-OF-CARE METER ID UU14162636
[2016-12-31] VITALS (14 sets, daily range): BP systolic 102–130; BP diastolic 57–70
[2016-12-31 00:33] LABS: POINT-OF-CARE METER ID UU14208751
[2016-12-31 04:50] LABS: HEMATOCRIT 24.3 % (38.0-50.0); MCH 27.6 PG (29.0-34.0); MCHC 30.9 G/DL (30.0-36.0); MCV 89.3 FL (86-99); MEAN PLAT.VOLUME 10.1 uM^3 (9.0-12.4); PLATELET COUNT 193 K/uL (156-360); RBC DIS.WIDTH-CV 17.9 % (11.8-14.6); RBC DIS.WIDTH-SD 58.2 % (39-53); RED BLOOD COUNT 2.72 M/uL (4.00-5.50); WHITE BLOOD COUNT 5.1 K/uL (4.1-10.2)
[2016-12-31 05:03] LABS: POTASSIUM 4.3 mEq/L (3.7-5.4); SODIUM 137 mEq/L (136-147)
[2016-12-31 05:05] LABS: CHLORIDE 105 mEq/L (99-109); GLUCOSE 221 mg/dL (70-99)
[2016-12-31 05:07] LABS: ANION GAP 7 MEQ/L (2-14)
[2016-12-31 05:09] LABS: GFR ESTIMATE (CALCULATED) > 59 mL/min/
[2016-12-31 05:10] LABS: UREA NITROGEN (BUN) 55 mg/dL (9-23)
[2016-12-31 11:30] LABS: POINT-OF-CARE METER ID UU14174217
[2016-12-31] MEDS ORDERED: URSODIOL300 MG GT (12:13)
[2016-12-31] MEDS ORDERED: SPIRONOLACTONE25 MG GT (12:13)
[2016-12-31] MEDS ORDERED: DUONEB 2.5-0.5 M3 ML AEROSOL (12:13)
[2016-12-31] MEDS ORDERED: LOVENOX80 MG/0.8 SC (12:13)
[2017-01-04] MEDS ORDERED: VANCOMYCIN125 MG/2.5 GT (14:20)
[2017-01-04] MEDS ORDERED: OXAYDO5 MG GT ×2 (14:27→14:28)
== END 2016-12-31 14:40 | disposition designated cancer center or children's hospital (05) | DRG 853 ==
LOC: EME 17:55 → SDC 20:14 → 2SOUTH 21:34 → 4WEST 21:34 → 4EAST 21:34 → 4WEST 22:22 → 2EAST 11-22 14:35 → 4EAST 11-22 18:10 → 4WEST 11-27 14:39 → ENPENDDIS 12-31 → 4WEST 12-31 14:40
PROVIDERS: Emergency Medicine; Internal Medicine; Internal Medicine Critical Care Medicine; Internal Medicine Infectious Disease; Internal Medicine Nephrology; Internal Medicine Pulmonary Disease; Physician Assistant; Radiology Diagnostic Radiology; Surgery; Thoracic Surgery (Cardiothoracic Vascular Surgery)
PROC: 0JB80ZZ Excision of Abdomen Subcutaneous Tissue and Fascia, Open Approach (ICD-10-PCS; principal; 2016-11-08)
PROC: 05H633Z Insertion of Infusion Device into Left Subclavian Vein, Percutaneous Approach (ICD-10-PCS; principal; 2016-11-08)
PROC: 03HY32Z Insertion of Monitoring Device into Upper Artery, Percutaneous Approach (ICD-10-PCS; 2016-11-09)
PROC: 5A1945Z Respiratory Ventilation, 24-96 Consecutive Hours (ICD-10-PCS; 2016-11-09)
PROC: 30233N1 Transfusion of Nonautologous Red Blood Cells into Peripheral Vein, Percutaneous Approach (ICD-10-PCS; 2016-11-09)
PROC: 05HM33Z Insertion of Infusion Device into Right Internal Jugular Vein, Percutaneous Approach (ICD-10-PCS; 2016-11-09)
PROC: B543ZZA Ultrasonography of Right Jugular Veins, Guidance (ICD-10-PCS; 2016-11-09)
PROC: 2W03X6Z Change Pressure Dressing on Abdominal Wall (ICD-10-PCS; 2016-11-11)
PROC: 0W9G3ZZ Drainage of Peritoneal Cavity, Percutaneous Approach (ICD-10-PCS; 2016-11-13)
PROC: 5A12012 Performance of Cardiac Output, Single, Manual (ICD-10-PCS; 2016-11-15)
PROC: 0BH17EZ Insertion of Endotracheal Airway into Trachea, Via Natural or Artificial Opening (ICD-10-PCS; 2016-11-15)
PROC: 5A1945Z Respiratory Ventilation, 24-96 Consecutive Hours (ICD-10-PCS; 2016-11-15)
PROC: 3E0336Z Introduction of Nutritional Substance into Peripheral Vein, Percutaneous Approach (ICD-10-PCS; 2016-11-25)
PROC: 5A12012 Performance of Cardiac Output, Single, Manual (ICD-10-PCS; 2016-11-27)
PROC: 0W993ZZ Drainage of Right Pleural Cavity, Percutaneous Approach (ICD-10-PCS; 2016-12-13)
PROC: 0DH63UZ Insertion of Feeding Device into Stomach, Percutaneous Approach (ICD-10-PCS; 2016-12-14)
PROC: 0W993ZZ Drainage of Right Pleural Cavity, Percutaneous Approach (ICD-10-PCS; 2016-12-22)
PROC: 0W9B3ZZ Drainage of Left Pleural Cavity, Percutaneous Approach (ICD-10-PCS; 2016-12-23)
PROC: 0W9G30Z Drainage of Peritoneal Cavity with Drainage Device, Percutaneous Approach (ICD-10-PCS; 2016-12-24)
PROC: 0W993ZZ Drainage of Right Pleural Cavity, Percutaneous Approach (ICD-10-PCS; 2016-12-25)
DX: A41.9 Sepsis, unspecified organism (principal); T81.12XA Postprocedural septic shock, initial encounter; M72.6 Necrotizing fasciitis; I12.9 Hypertensive chronic kidney disease with stage 1 through stage 4 chronic kidney disease, or unspecified chronic kidney disease; A04.7 Enterocolitis due to Clostridium difficile; N17.9 Acute kidney failure, unspecified; T81.30XA Disruption of wound, unspecified, initial encounter; J96.01 Acute respiratory failure with hypoxia; C18.2 Malignant neoplasm of ascending colon; I46.9 Cardiac arrest, cause unspecified; I49.01 Ventricular fibrillation; J69.0 Pneumonitis due to inhalation of food and vomit; K65.9 Peritonitis, unspecified; I81 Portal vein thrombosis; I95.81 Postprocedural hypotension; J90 Pleural effusion, not elsewhere classified; K74.60 Unspecified cirrhosis of liver; I47.2 Ventricular tachycardia; B18.2 Chronic viral hepatitis C; R62.7 Adult failure to thrive; E10.649 Type 1 diabetes mellitus with hypoglycemia without coma; E10.65 Type 1 diabetes mellitus with hyperglycemia; E10.22 Type 1 diabetes mellitus with diabetic chronic kidney disease; E78.5 Hyperlipidemia, unspecified; E87.5 Hyperkalemia; E87.0 Hyperosmolality and hypernatremia; E87.1 Hypo-osmolality and hyponatremia; R13.10 Dysphagia, unspecified; B37.0 Candidal stomatitis; R18.8 Other ascites; R04.0 Epistaxis; I49.3 Ventricular premature depolarization; I82.210 Acute embolism and thrombosis of superior vena cava; D64.9 Anemia, unspecified; E83.42 Hypomagnesemia; J02.9 Acute pharyngitis, unspecified; I77.819 Aortic ectasia, unspecified site; I87.8 Other specified disorders of veins; E43 Unspecified severe protein-calorie malnutrition; M19.90 Unspecified osteoarthritis, unspecified site; R32 Unspecified urinary incontinence; K56.7 Ileus, unspecified; E87.70 Fluid overload, unspecified; E86.1 Hypovolemia; L89.322 Pressure ulcer of left buttock, stage 2; D69.6 Thrombocytopenia, unspecified; K21.9 Gastro-esophageal reflux disease without esophagitis; N18.3 Chronic kidney disease, stage 3 (moderate); D63.8 Anemia in other chronic diseases classified elsewhere; G40.909 Epilepsy, unspecified, not intractable, without status epilepticus; K72.90 Hepatic failure, unspecified without coma; E10.42 Type 1 diabetes mellitus with diabetic polyneuropathy; Z79.4 Long term (current) use of insulin; Z68.27 Body mass index [BMI] 27.0-27.9, adult; Z98.1 Arthrodesis status; Z90.49 Acquired absence of other specified parts of digestive tract; Z87.891 Personal history of nicotine dependence; Z96.653 Presence of artificial knee joint, bilateral; Z82.49 Family history of ischemic heart disease and other diseases of the circulatory system; Z85.038 Personal history of other malignant neoplasm of large intestine
CPT/HCPCS: 31720; 32555; 36600; 49083; 49406; 71010; 71020; 71260; 71275; 74000; 74177; 74230; 76705; 76937; 76942; 80048; 80048 91; 80053; 80076; 81003; 81050; 82040; 82150; 82248; 82271; 82803; 82945; 82948; 83036; 83605; 83615 91; 83690; 83735; 83986 90; 84100; 84134; 84157; 84478; 84484; 84540; 84630 90; 84999; 85014; 85018; 85025; 85027; 85610; 85730; 86022 90; 86900; 86901; 86920; 87040; 87070; 87075; 87076; 87077; 87086; 87103; 87106; 87147; 87186; 87205; 87493; 87641; 87801; 88108; 88305; 89051; 92526 GN; 92610 GN; 92611 GN; 93005; 93306; 94002; 94003; 94640; 94640 76; 94667; 94668; 94760; 94799; 97530 GO; 97530 GP; 99202; 99281; 99285; C1729; C1769; J0330; J0360; J0610; J0690; J0696; J1100; J1170; J1450; J1644; J1650; J1720; J1815; J1885; J1940; J2020; J2185; J2250; J2405; J2543; J2704; J2710; J2765; J2920; J2930; J3010; J3360; J3370; J3475; J3480; J7030; J7040; J7050; J7070; J7120; P9016; P9045; P9047; S0028; S0030

== ENCOUNTER 2017-01-04 10:48 | Inpatient (IN) | payer OTHER ==
[~2017-01-04] VITALS: Ht 182.9 cm; Wt 91.9 kg
[2017-01-04] VITALS (13 sets, daily range): BP systolic 83–114; BP diastolic 56–72
[~2017-01-04 10:48] MED LIST changes: +DUONEB 2.5-0.5 M3 ML AEROSOL; +LOVENOX80 MG/0.8 SC; +NOVOLOG 10100 UNITS/ SC; +SPIRONOLACTONE25 MG GT; +URSODIOL300 MG GT
[2017-01-04 10:55] LABS: CREATININE 0.9 mg/dL (0.6-1.3); POTASSIUM 5.9 mEq/L (3.7-5.4)
[2017-01-04 11:16] LABS: EOSINOPHIL (%) 0 % (0-5); HEMATOCRIT 29.9 % (38.0-50.0); IMMATURE GRANULOCYTE COUNT 0.1 K/uL; INSTRUMENT ABS NEUTROPHIL CT 6.3 K/uL; LYMPHOCYTE COUNT 0.3 K/uL (1.0-2.8); MCHC 29.8 G/DL (30.0-36.0); MEAN PLAT.VOLUME 9.8 uM^3 (9.0-12.4); MONOCYTE COUNT 0.4 K/uL (0-0.8); NEUTROPHIL (%) 89.5 % (45-76); NEUTROPHIL COUNT 6.3 K/uL (1.8-6.4); PLATELET COUNT 228 K/uL (156-360); RBC DIS.WIDTH-SD 58.9 % (39-53); RED BLOOD COUNT 3.18 M/uL (4.00-5.50)
[2017-01-04 11:21] LABS: INTER. NORMALIZED RATIO 1.1; PROTHROMBIN TIME 12.1 SEC (10.2-12.9)
[2017-01-04 11:24] LABS: PTT 46.2 SEC (25-37)
[2017-01-04 11:32] LABS: CHLORIDE 99 mEq/L (99-109); SODIUM 133 mEq/L (136-147)
[2017-01-04 11:34] LABS: GLUCOSE 302 mg/dL (70-99)
[2017-01-04 11:35] LABS: ANION GAP 4 MEQ/L (2-14)
[2017-01-04 11:36] LABS: TOTAL BILIRUBIN 0.2 mg/dL (0.0-1.0)
[2017-01-04 11:37] LABS: ALKALINE PHOSPHATASE 80 IU/L (3-129)
[2017-01-04 11:38] LABS: GFR ESTIMATE (CALCULATED) > 59 mL/min/
[2017-01-04 11:39] LABS: DIRECT BILIRUBIN 0.1 mg/dL (0.0-0.3); POTASSIUM 5.7 mEq/L (3.7-5.4); UREA NITROGEN (BUN) 40 mg/dL (9-23)
[2017-01-04 11:41] LABS: ADD MIUA? YES; BILIRUBIN NEGATIVE; BLOOD SMALL; COLOR YELLOW ((YELLOW)); GLUCOSE (STRIP) 150; KETONES NEGATIVE; LEUKOCYTES SMALL; NITRITE NEGATIVE; PROTEIN (STRIP) 100; SPECIFIC GRAVITY 1.012 (1.000-1.030); UROBILINOGEN 0.2 MG/DL (0.2-1.0)
[2017-01-04 11:43] LABS: BASE EXCESS 3.8 mEq/L (-3 to +3); METHEMOGLOBIN 0.9 % (0-1.5)
[2017-01-04 11:43] LABS: TROP-I INTERPRETATION NEGATIVE; TROPONIN-I < 0.01 ng/mL (0.0-0.30)
[2017-01-04 11:44] LABS: BICARBONATE 32.7 mEq/L (22-26); COMMENTS - BLOOD GASES A+C+; DEVICE VENT; FI02 100 %; MECHANICAL RATE 12 resp/min; MODE AC; PCO2 78 mm Hg (35-45); PO2 215 mm Hg (80-100); SITE LR; TIDAL VOLUME 500 ML; TOTAL RESP RATE 12 resp/min; pH 7.23 (7.35-7.45)
[2017-01-04 11:45] LABS: PEEP 5 CM/H20
[2017-01-04 11:59] LABS: BACTERIA RARE /HPF; BUDDING YEAST 2+; EPITHELIAL CELLS RARE /HPF; MUCUS TRACE /LPF; UCUL ADDED? YES
[2017-01-04] MEDS ORDERED: SALINE MIST45 ML BOTH NARES (14:16)
[2017-01-04] MEDS ORDERED: LASIX10 MG/ML IV (14:20)
[2017-01-04] MEDS ORDERED: LANTUS 10100 UNITS/ SC (14:21)
[2017-01-04] MEDS ORDERED: LIPITOR40 MG GT (14:22)
[2017-01-04] MEDS ORDERED: CENTRUM COMPLE1 EACH GT (14:23)
[2017-01-04] MEDS ORDERED: FLORASTOR250 MG GT (14:24)
[2017-01-04] MEDS ORDERED: QUESTRAN PACKET4 GM GT (14:24)
[2017-01-04] MEDS ORDERED: LOVENOX80 MG/0.8 SC (14:25)
[2017-01-04] MEDS ORDERED: SPIRONOLACTONE25 MG GT (14:25)
[2017-01-04] MEDS ORDERED: URSODIOL300 MG GT (14:26)
[2017-01-04] MEDS ORDERED: OXYCODONE HCL10 MG GT (14:27)
[2017-01-04] MEDS ORDERED: OXYCODONE HCL5 MG GT (14:28)
[2017-01-04] MEDS ORDERED: LOPRESSOR25 MG GT (14:30)
[2017-01-04] MEDS ORDERED: PROTONIX40 M1 GT (14:30)
[2017-01-04] MEDS ORDERED: CALCIDOL8000 UNIT/ GT (14:32)
[2017-01-04] MEDS ORDERED: NOVOLOG PE100 UNITS/ SC (14:33)
[2017-01-04] MEDS ORDERED: SANTYL30 GM TP (14:34)
[2017-01-04] MEDS ORDERED: DUONEB 2.5-0.5 M3 ML AEROSOL (14:35)
[2017-01-04] MEDS ORDERED: AQUAPHOR OINTM105 GM TP (14:35)
[2017-01-04 16:30] LABS: METH RESISTANT S AUREUS PCR NEGATIVE (NEGATIVE)
[2017-01-04 16:34] LABS: PROBE CHECK PASS; SPECIMEN PROCESSING CONTROL PASS
[2017-01-04 17:55] LABS: POINT-OF-CARE METER ID UU13113748
[2017-01-04 22:26] LABS: POINT-OF-CARE METER ID UU13113748
[2017-01-04 23:43] LABS: POINT-OF-CARE METER ID UU13113748
[2017-01-05] VITALS (24 sets, daily range): BP systolic 96–128; BP diastolic 62–93
[2017-01-05 06:05] LABS: POINT-OF-CARE METER ID UU13113748
[2017-01-05 06:30] LABS: HEMATOCRIT 24.3 % (38.0-50.0); MCH 28.4 PG (29.0-34.0); MCHC 31.7 G/DL (30.0-36.0); MEAN PLAT.VOLUME 9.9 uM^3 (9.0-12.4); PLATELET COUNT 185 K/uL (156-360); RBC DIS.WIDTH-SD 55.6 % (39-53); RED BLOOD COUNT 2.71 M/uL (4.00-5.50)
[2017-01-05 06:36] LABS: MCV 89.7 FL (86-99)
[2017-01-05 06:40] LABS: ANION GAP 5 MEQ/L (2-14); CHLORIDE 101 MEQ/L (99-109); GFR ESTIMATE (CALCULATED) > 59 mL/min/; GLUCOSE 98 mg/dL (70-99); POTASSIUM 5.2 MEQ/L (3.7-5.4); SAMPLE HEMOLYSIS CHECK 0; SAMPLE ICTERIC CHECK 0; SAMPLE LIPEMIA CHECK 0; SODIUM 135 MEQ/L (136-147); UREA NITROGEN (BUN) 40 mg/dL (9-23)
[2017-01-05 11:28] LABS: POINT-OF-CARE METER ID UU13113748; POINT-OF-CARE USER ID 612031313
[2017-01-05 18:04] LABS: POINT-OF-CARE METER ID UU13113748; POINT-OF-CARE USER ID 612031313
[2017-01-06] VITALS (23 sets, daily range): BP systolic 91–121; BP diastolic 50–78
[2017-01-06 00:38] LABS: C DIFF TOXIN NEGATIVE (NEGATIVE)
[2017-01-06 00:39] LABS: PROBE CHECK PASS; SPECIMEN PROCESSING CONTROL PASS
[2017-01-06 05:57] LABS: HEMATOCRIT 24.9 % (38.0-50.0); MCH 28.7 PG (29.0-34.0); MCHC 32.1 G/DL (30.0-36.0); MCV 89.2 FL (86-99); MEAN PLAT.VOLUME 10.1 uM^3 (9.0-12.4); PLATELET COUNT 205 K/uL (156-360); RBC DIS.WIDTH-CV 17.4 % (11.8-14.6); RBC DIS.WIDTH-SD 57.1 % (39-53); RED BLOOD COUNT 2.79 M/uL (4.00-5.50); WHITE BLOOD COUNT 5.6 K/uL (4.1-10.2)
[2017-01-06 06:11] LABS: POINT-OF-CARE METER ID UU13113748
[2017-01-06 07:07] LABS: ANION GAP 4 MEQ/L (2-14); CHLORIDE 102 MEQ/L (99-109); GFR ESTIMATE (CALCULATED) > 59 mL/min/; GLUCOSE 95 mg/dL (70-99); POTASSIUM 4.8 MEQ/L (3.7-5.4); SAMPLE HEMOLYSIS CHECK 0; SAMPLE ICTERIC CHECK 0; SAMPLE LIPEMIA CHECK 0; SODIUM 136 MEQ/L (136-147); UREA NITROGEN (BUN) 51 mg/dL (9-23)
[2017-01-06 12:24] LABS: POINT-OF-CARE METER ID UU14208751; POINT-OF-CARE USER ID 612031313
[2017-01-06 18:08] LABS: POINT-OF-CARE METER ID UU14208751; POINT-OF-CARE USER ID 612031313
[2017-01-07] VITALS (23 sets, daily range): BP systolic 95–124; BP diastolic 58–81
[2017-01-07 00:06] LABS: POINT-OF-CARE METER ID UU13113748
[2017-01-07 05:05] LABS: HEMATOCRIT 24.4 % (38.0-50.0); MCH 27.7 PG (29.0-34.0); MCHC 31.1 G/DL (30.0-36.0); MCV 89.1 FL (86-99); MEAN PLAT.VOLUME 9.5 uM^3 (9.0-12.4); PLATELET COUNT 182 K/uL (156-360); RBC DIS.WIDTH-CV 17.3 % (11.8-14.6); RED BLOOD COUNT 2.74 M/uL (4.00-5.50); WHITE BLOOD COUNT 5.9 K/uL (4.1-10.2)
[2017-01-07 05:43] LABS: CHLORIDE 104 mEq/L (99-109); POTASSIUM 4.8 mEq/L (3.7-5.4); SODIUM 137 mEq/L (136-147)
[2017-01-07 05:44] LABS: GLUCOSE 131 mg/dL (70-99)
[2017-01-07 05:46] LABS: ANION GAP 8 MEQ/L (2-14)
[2017-01-07 05:48] LABS: GFR ESTIMATE (CALCULATED) > 59 mL/min/
[2017-01-07 05:49] LABS: UREA NITROGEN (BUN) 59 mg/dL (9-23)
[2017-01-07 06:09] LABS: POINT-OF-CARE METER ID UU14162636
[2017-01-07 11:44] LABS: POINT-OF-CARE METER ID UU14162636
[2017-01-07 17:47] LABS: POINT-OF-CARE METER ID UU14174217
[2017-01-08] VITALS (27 sets, daily range): BP systolic 99–124; BP diastolic 55–77
[2017-01-08 00:15] LABS: POINT-OF-CARE METER ID UU14174217
[2017-01-08 05:30] LABS: HEMATOCRIT 24.7 % (38.0-50.0); MCV 90.8 FL (86-99); MEAN PLAT.VOLUME 10.4 uM^3 (9.0-12.4); PLATELET COUNT 177 K/uL (156-360); RBC DIS.WIDTH-CV 17.5 % (11.8-14.6); RBC DIS.WIDTH-SD 57.6 % (39-53); RED BLOOD COUNT 2.72 M/uL (4.00-5.50); WHITE BLOOD COUNT 5.3 K/uL (4.1-10.2)
[2017-01-08 05:59] LABS: ANION GAP 6 MEQ/L (2-14); CHLORIDE 103 MEQ/L (99-109); GFR ESTIMATE (CALCULATED) > 59 mL/min/; GLUCOSE 168 mg/dL (70-99); POTASSIUM 4.6 MEQ/L (3.7-5.4); SAMPLE HEMOLYSIS CHECK 0; SAMPLE ICTERIC CHECK 0; SAMPLE LIPEMIA CHECK 0; SODIUM 134 MEQ/L (136-147); UREA NITROGEN (BUN) 56 mg/dL (9-23)
[2017-01-08 13:06] LABS: POINT-OF-CARE METER ID UU14174217; POINT-OF-CARE USER ID 612031313
[2017-01-08 14:13] LABS: TYPE OF FLUID PLEURAL
[2017-01-08 14:14] LABS: TYPE OF FLUID PLEURAL
[2017-01-08 14:50] LABS: BODY FLUID LDH 108 IU/L; BODY FLUID PROTEIN 3.3 G/DL
[2017-01-08 14:50] LABS: BODY FLUID EOSINOPHILS 0 % (0-25); BODY FLUID LDH 94 IU/L; BODY FLUID PROTEIN 3.4 G/DL; BODY FLUID RBC'S < 1000 /MM^3 (0-100); BODY FLUID WBC'S 189 /MM^3 (0-500); MONONUCLEAR WBC'S 93 %; POLYNUCLEAR WBC'S 7 % (0-25)
[2017-01-08 14:52] LABS: BODY FLUID EOSINOPHILS 0 % (0-25); BODY FLUID RBC'S 1000 /MM^3 (0-100); BODY FLUID WBC'S 322 /MM^3 (0-500); MONONUCLEAR WBC'S 96 %; POLYNUCLEAR WBC'S 4 % (0-25)
[2017-01-08 18:10] LABS: POINT-OF-CARE METER ID UU14174217; POINT-OF-CARE USER ID 612031313
[2017-01-08 21:52] LABS: POINT-OF-CARE METER ID UU14174217
[2017-01-08 23:39] LABS: POINT-OF-CARE METER ID UU14162636
[2017-01-09] VITALS (23 sets, daily range): BP systolic 99–125; BP diastolic 59–74
[2017-01-09 05:45] LABS: HEMATOCRIT 24.3 % (38.0-50.0); MCH 27.9 PG (29.0-34.0); MCHC 30.5 G/DL (30.0-36.0); MCV 91.7 FL (86-99); MEAN PLAT.VOLUME 10.3 uM^3 (9.0-12.4); PLATELET COUNT 164 K/uL (156-360); RBC DIS.WIDTH-SD 57.2 % (39-53); RED BLOOD COUNT 2.65 M/uL (4.00-5.50); WHITE BLOOD COUNT 4.8 K/uL (4.1-10.2)
[2017-01-09 06:13] LABS: ANION GAP 6 MEQ/L (2-14); CHLORIDE 105 MEQ/L (99-109); GFR ESTIMATE (CALCULATED) > 59 mL/min/; GLUCOSE 151 mg/dL (70-99); POTASSIUM 4.4 MEQ/L (3.7-5.4); SAMPLE HEMOLYSIS CHECK 0; SAMPLE ICTERIC CHECK 0; SAMPLE LIPEMIA CHECK 0; SODIUM 137 MEQ/L (136-147); UREA NITROGEN (BUN) 61 mg/dL (9-23)
[2017-01-09 06:26] LABS: POINT-OF-CARE METER ID UU14174217
[2017-01-09 13:09] LABS: POINT-OF-CARE METER ID UU14174217
[2017-01-09 17:39] LABS: POINT-OF-CARE METER ID UU13113748
[2017-01-09 23:37] LABS: POINT-OF-CARE METER ID UU14174217
[2017-01-10] VITALS (24 sets, daily range): BP systolic 0–123; BP diastolic 0–82
[2017-01-10 05:52] LABS: HEMATOCRIT 23.9 % (38.0-50.0); MCH 27.7 PG (29.0-34.0); MCHC 30.1 G/DL (30.0-36.0); MCV 91.9 FL (86-99); MEAN PLAT.VOLUME 10.2 uM^3 (9.0-12.4); PLATELET COUNT 152 K/uL (156-360); RBC DIS.WIDTH-CV 16.9 % (11.8-14.6); RBC DIS.WIDTH-SD 57.5 % (39-53); WHITE BLOOD COUNT 5.6 K/uL (4.1-10.2)
[2017-01-10 05:53] LABS: POINT-OF-CARE METER ID UU14208751
[2017-01-10 06:00] LABS: ANION GAP 4 MEQ/L (2-14); CHLORIDE 105 MEQ/L (99-109); GFR ESTIMATE (CALCULATED) > 59 mL/min/; GLUCOSE 214 mg/dL (70-99); MAGNESIUM 1.9 mg/dl (1.3-2.7); POTASSIUM 4.1 MEQ/L (3.7-5.4); SAMPLE HEMOLYSIS CHECK 0; SAMPLE ICTERIC CHECK 0; SAMPLE LIPEMIA CHECK 0; SODIUM 136 MEQ/L (136-147); UREA NITROGEN (BUN) 60 mg/dL (9-23)
[2017-01-10 09:45] LABS: BICARBONATE 28.5 mEq/L (22-26); CARBOXY HGB 2.7 % (0-5); METHEMOGLOBIN 1.2 % (0-1.5)
[2017-01-10 09:46] LABS: PCO2 42 mm Hg (35-45); PO2 86 mm Hg (80-100); SITE LR; pH 7.44 (7.35-7.45)
[2017-01-10 09:47] LABS: COMMENTS - BLOOD GASES A+C+; DEVICE VENT; FI02 30 %; MODE SPONT; PEEP 5 CM/H20; PRES. SUPPORT 10 CM/H2O; TOTAL RESP RATE 28 resp/min
[2017-01-10 12:09] LABS: POINT-OF-CARE METER ID UU14208751
[2017-01-10 18:12] LABS: POINT-OF-CARE METER ID UU14208751
[2017-01-10 21:36] LABS: POINT-OF-CARE METER ID UU14208751
[2017-01-10 23:31] LABS: POINT-OF-CARE METER ID UU14208751
[2017-01-11] VITALS (26 sets, daily range): BP systolic 90–125; BP diastolic 56–80
[2017-01-11 05:24] LABS: MCH 27.2 PG (29.0-34.0); MCV 90.6 FL (86-99); MEAN PLAT.VOLUME 10.3 uM^3 (9.0-12.4); PLATELET COUNT 155 K/uL (156-360); RBC DIS.WIDTH-CV 16.6 % (11.8-14.6); RBC DIS.WIDTH-SD 55.6 % (39-53); RED BLOOD COUNT 2.87 M/uL (4.00-5.50); WHITE BLOOD COUNT 6.2 K/uL (4.1-10.2)
[2017-01-11 06:09] LABS: POINT-OF-CARE METER ID UU14174217
[2017-01-11 06:13] LABS: ANION GAP 5 MEQ/L (2-14); CHLORIDE 108 MEQ/L (99-109); GFR ESTIMATE (CALCULATED) > 59 mL/min/; GLUCOSE 150 mg/dL (70-99); MAGNESIUM 1.9 mg/dl (1.3-2.7); POTASSIUM 4.1 MEQ/L (3.7-5.4); SAMPLE HEMOLYSIS CHECK 0; SAMPLE ICTERIC CHECK 0; SAMPLE LIPEMIA CHECK 0; SODIUM 140 MEQ/L (136-147); UREA NITROGEN (BUN) 62 mg/dL (9-23)
[2017-01-11 12:37] LABS: POINT-OF-CARE METER ID UU14174217
[2017-01-11 18:02] LABS: POINT-OF-CARE METER ID UU14174217
[2017-01-11 23:55] LABS: POINT-OF-CARE METER ID UU14174217
[2017-01-12] VITALS (19 sets, daily range): BP systolic 112–139; BP diastolic 66–84
[2017-01-12 05:30] LABS: POINT-OF-CARE METER ID UU14162636
[2017-01-12 05:42] LABS: MCH 29.2 PG (29.0-34.0); MCHC 32.1 G/DL (30.0-36.0); MCV 90.9 FL (86-99); MEAN PLAT.VOLUME 10.9 uM^3 (9.0-12.4); PLATELET COUNT 144 K/uL (156-360); RBC DIS.WIDTH-CV 16.3 % (11.8-14.6); RBC DIS.WIDTH-SD 54.5 % (39-53); RED BLOOD COUNT 3.08 M/uL (4.00-5.50); WHITE BLOOD COUNT 7.2 K/uL (4.1-10.2)
[2017-01-12 06:29] LABS: ANION GAP 7 MEQ/L (2-14); CHLORIDE 108 MEQ/L (99-109); GFR ESTIMATE (CALCULATED) > 59 mL/min/; GLUCOSE 216 mg/dL (70-99); POTASSIUM 4.1 MEQ/L (3.7-5.4); SAMPLE HEMOLYSIS CHECK 0; SAMPLE ICTERIC CHECK 0; SAMPLE LIPEMIA CHECK 0; SODIUM 142 MEQ/L (136-147); UREA NITROGEN (BUN) 63 mg/dL (9-23)
[2017-01-12 13:40] LABS: POINT-OF-CARE METER ID UU14162636
[2017-01-12 17:55] LABS: POINT-OF-CARE METER ID UU14162636
[2017-01-12 23:43] LABS: POINT-OF-CARE METER ID UU14162636
[2017-01-13] VITALS (11 sets, daily range): BP systolic 110–129; BP diastolic 64–80
[2017-01-13 05:32] LABS: POINT-OF-CARE METER ID UU14162636
[2017-01-13 05:40] LABS: HEMATOCRIT 27.7 % (38.0-50.0); MCH 27.8 PG (29.0-34.0); MCV 89.6 FL (86-99); MEAN PLAT.VOLUME 10.3 uM^3 (9.0-12.4); PLATELET COUNT 141 K/uL (156-360); RBC DIS.WIDTH-CV 16.4 % (11.8-14.6); RBC DIS.WIDTH-SD 53.8 % (39-53); RED BLOOD COUNT 3.09 M/uL (4.00-5.50); WHITE BLOOD COUNT 4.7 K/uL (4.1-10.2)
[2017-01-13 06:19] LABS: ALKALINE PHOSPHATASE 83 IU/L (3-129); AMYLASE 40 IU/L (1-118); ANION GAP 7 MEQ/L (2-14); CHLORIDE 108 MEQ/L (99-109); GFR ESTIMATE (CALCULATED) > 59 mL/min/; GLUCOSE 90 mg/dL (70-99); LIPASE 30 U/L (1.0-51.0); MAGNESIUM 1.8 mg/dl (1.3-2.7); POTASSIUM 3.8 MEQ/L (3.7-5.4); SAMPLE HEMOLYSIS CHECK 0; SAMPLE ICTERIC CHECK 0; SAMPLE LIPEMIA CHECK 0; SODIUM 144 MEQ/L (136-147); TOTAL BILIRUBIN 0.2 MG/DL (0.0-1.0); UREA NITROGEN (BUN) 60 mg/dL (9-23)
[2017-01-13 07:05] LABS: EOSINOPHIL (%) 2.8 % (0-5); EOSINOPHIL COUNT 0.1 K/uL (0-0.3); IMMATURE GRANULOCYTE (%) 0.2 % (0.0-0.7); INSTRUMENT ABS NEUTROPHIL CT 3.6 K/uL; LYMPHOCYTE COUNT 0.4 K/uL (1.0-2.8); MONOCYTE COUNT 0.5 K/uL (0-0.8); NEUTROPHIL (%) 77.1 % (45-76); NEUTROPHIL COUNT 3.6 K/uL (1.8-6.4)
[2017-01-13 12:22] LABS: POINT-OF-CARE METER ID UU13113748
[2017-01-13 17:33] LABS: POINT-OF-CARE METER ID UU13113748
[2017-01-14 01:44] LABS: POINT-OF-CARE METER ID UU14174217
[2017-01-14 05:22] LABS: HEMATOCRIT 26.7 % (38.0-50.0); MCH 28.2 PG (29.0-34.0); MCHC 31.1 G/DL (30.0-36.0); MCV 90.8 FL (86-99); PLATELET COUNT 149 K/uL (156-360); RBC DIS.WIDTH-CV 16.1 % (11.8-14.6); RBC DIS.WIDTH-SD 53.6 % (39-53); RED BLOOD COUNT 2.94 M/uL (4.00-5.50); WHITE BLOOD COUNT 3.6 K/uL (4.1-10.2)
[2017-01-14 05:29] LABS: POINT-OF-CARE METER ID UU14174217
[2017-01-14 05:37] LABS: CHLORIDE 107 mEq/L (99-109); SODIUM 141 mEq/L (136-147)
[2017-01-14 05:51] LABS: POTASSIUM 4.8 mEq/L (3.7-5.4)
[2017-01-14 06:04] LABS: ANION GAP 4 MEQ/L (2-14)
[2017-01-14 06:06] LABS: GFR ESTIMATE (CALCULATED) > 59 mL/min/
[2017-01-14 06:07] LABS: UREA NITROGEN (BUN) 65 mg/dL (9-23)
[2017-01-14 06:10] LABS: GLUCOSE 251 mg/dL (70-99)
[2017-01-14 08:00] VITALS: BP 134/79
[2017-01-14 09:23] LABS: POINT-OF-CARE METER ID UU14174217
[2017-01-14 11:47] LABS: POINT-OF-CARE METER ID UU14174217
[2017-01-14 12:00] VITALS: BP 106/79
[2017-01-14 16:00] VITALS: BP 122/74
[2017-01-14 18:37] LABS: POINT-OF-CARE METER ID UU14174217
[2017-01-14 20:00] VITALS: BP 134/81
[2017-01-15] VITALS (10 sets, daily range): BP systolic 111–132; BP diastolic 64–78
[2017-01-15 05:53] LABS: HEMATOCRIT 27.3 % (38.0-50.0); MCH 27.8 PG (29.0-34.0); MCHC 30.8 G/DL (30.0-36.0); MCV 90.4 FL (86-99); PLATELET COUNT 157 K/uL (156-360); RBC DIS.WIDTH-CV 15.9 % (11.8-14.6); RBC DIS.WIDTH-SD 52.5 % (39-53); RED BLOOD COUNT 3.02 M/uL (4.00-5.50); WHITE BLOOD COUNT 4.6 K/uL (4.1-10.2)
[2017-01-15 06:50] LABS: Estimated Average Glucose 134 mg/dL (70-123)
[2017-01-15 06:56] LABS: HEMOGLOBIN A1c (GLYCOHEMOGLOB) 6.3 % HGB (Below 5.7)
[2017-01-15 06:57] LABS: ANION GAP 7 MEQ/L (2-14); CHLORIDE 105 MEQ/L (99-109); GFR ESTIMATE (CALCULATED) > 59 mL/min/; POTASSIUM 5.1 MEQ/L (3.7-5.4); SAMPLE HEMOLYSIS CHECK 0; SAMPLE ICTERIC CHECK 0; SAMPLE LIPEMIA CHECK 0; SODIUM 143 MEQ/L (136-147); UREA NITROGEN (BUN) 71 mg/dL (9-23)
[2017-01-15 07:04] LABS: GLUCOSE 434 mg/dL (70-99)
[2017-01-15 07:45] LABS: POINT-OF-CARE METER ID UU14162636
[2017-01-15 08:44] LABS: POINT-OF-CARE METER ID UU14162636
[2017-01-15 09:43] LABS: POINT-OF-CARE METER ID UU14162636
[2017-01-15 10:04] LABS: POINT-OF-CARE METER ID UU14162636
[2017-01-15 11:00] LABS: POINT-OF-CARE METER ID UU14162636
[2017-01-15 11:02] LABS: POINT-OF-CARE METER ID UU13113748
[2017-01-15 11:34] LABS: POINT-OF-CARE METER ID UU14162636
[2017-01-15 12:49] LABS: POINT-OF-CARE METER ID UU14162636
[2017-01-15 13:49] LABS: POINT-OF-CARE METER ID UU13113748; POINT-OF-CARE USER ID AGYTJR
[2017-01-15 14:59] LABS: POINT-OF-CARE METER ID UU13113748; POINT-OF-CARE USER ID AGYTJR
[2017-01-15 15:45] LABS: POINT-OF-CARE METER ID UU13113748
[2017-01-15 17:05] LABS: POINT-OF-CARE METER ID UU14162636
[2017-01-15 18:10] LABS: POINT-OF-CARE METER ID UU14162636
[2017-01-15 18:54] LABS: POINT-OF-CARE METER ID UU14162636
[2017-01-15 19:55] LABS: POINT-OF-CARE METER ID UU14162636
[2017-01-15 20:59] LABS: POINT-OF-CARE METER ID UU14162636
[2017-01-15 22:06] LABS: POINT-OF-CARE METER ID UU14208751
[2017-01-15 23:22] LABS: POINT-OF-CARE METER ID UU14162636
[2017-01-16] VITALS (19 sets, daily range): BP systolic 116–136; BP diastolic 71–86
[2017-01-16 00:11] LABS: POINT-OF-CARE METER ID UU14162636
[2017-01-16 02:12] LABS: POINT-OF-CARE METER ID UU13113731
[2017-01-16 04:11] LABS: POINT-OF-CARE METER ID UU13113731
[2017-01-16 05:11] LABS: POINT-OF-CARE METER ID UU13113731
[2017-01-16 05:19] LABS: BASE EXCESS 10.1 mEq/L (-3 to +3); CARBOXY HGB 1.7 % (0-5); METHEMOGLOBIN 1.5 % (0-1.5); PCO2 44 mm Hg (35-45); PO2 75 mm Hg (80-100)
[2017-01-16 05:20] LABS: BICARBONATE 34.3 mEq/L (22-26); COMMENTS - BLOOD GASES C+; DEVICE VENT; FI02 30 %; MODE TC; SITE LB
[2017-01-16 05:21] LABS: PEEP 5 CM/H20; TOTAL RESP RATE 21 resp/min
[2017-01-16 05:54] LABS: EOSINOPHIL (%) 0 % (0-5); HEMATOCRIT 27.1 % (38.0-50.0); IMMATURE GRANULOCYTE (%) 0.3 % (0.0-0.7); INSTRUMENT ABS NEUTROPHIL CT 6.8 K/uL; LYMPHOCYTE COUNT 0.3 K/uL (1.0-2.8); MCH 27.3 PG (29.0-34.0); MCHC 30.3 G/DL (30.0-36.0); MCV 90.3 FL (86-99); MEAN PLAT.VOLUME 11.1 uM^3 (9.0-12.4); MONOCYTE (%) 2.9 % (3-12); MONOCYTE COUNT 0.2 K/uL (0-0.8); NEUTROPHIL (%) 93.1 % (45-76); NEUTROPHIL COUNT 6.8 K/uL (1.8-6.4); PLATELET COUNT 186 K/uL (156-360); RBC DIS.WIDTH-SD 53.1 % (39-53); WHITE BLOOD COUNT 7.3 K/uL (4.1-10.2)
[2017-01-16 06:13] LABS: POINT-OF-CARE METER ID UU14174217
[2017-01-16 06:28] LABS: ANION GAP 8 MEQ/L (2-14); CHLORIDE 106 MEQ/L (99-109); GFR ESTIMATE (CALCULATED) > 59 mL/min/; MAGNESIUM 1.9 mg/dl (1.3-2.7); POTASSIUM 5.3 MEQ/L (3.7-5.4); SAMPLE HEMOLYSIS CHECK 0; SAMPLE ICTERIC CHECK 0; SAMPLE LIPEMIA CHECK 0; SODIUM 145 MEQ/L (136-147); UREA NITROGEN (BUN) 75 mg/dL (9-23)
[2017-01-16 06:35] LABS: GLUCOSE 153 mg/dL (70-99)
[2017-01-16 07:18] LABS: POINT-OF-CARE METER ID UU13113731
[2017-01-16 08:27] LABS: POINT-OF-CARE METER ID UU13113731
[2017-01-16 10:56] LABS: POINT-OF-CARE METER ID UU14174217
[2017-01-16 10:56] LABS: POINT-OF-CARE METER ID UU14174217
[2017-01-16 11:58] LABS: POINT-OF-CARE METER ID UU14174217
[2017-01-16 12:45] LABS: POINT-OF-CARE METER ID UU14174217
[2017-01-16 14:01] LABS: POINT-OF-CARE METER ID UU13113731
[2017-01-16 15:00] LABS: POINT-OF-CARE METER ID UU13113731
[2017-01-16 16:12] LABS: POINT-OF-CARE METER ID UU13113731
[2017-01-16 17:18] LABS: POINT-OF-CARE METER ID UU13113731
[2017-01-16 18:22] LABS: POINT-OF-CARE METER ID UU14174217
[2017-01-16 19:31] LABS: POINT-OF-CARE METER ID UU13113731
[2017-01-16 20:58] LABS: POINT-OF-CARE METER ID UU13113731
[2017-01-17] VITALS: BP 135/97
[2017-01-17 01:42] LABS: POINT-OF-CARE METER ID UU14174217
[2017-01-17 04:00] VITALS: BP 132/77
[2017-01-17 05:17] LABS: POINT-OF-CARE METER ID UU14174217
[2017-01-17 06:11] LABS: HEMATOCRIT 28.7 % (38.0-50.0); MCH 28.3 PG (29.0-34.0); MCV 91.4 FL (86-99); MEAN PLAT.VOLUME 10.7 uM^3 (9.0-12.4); PLATELET COUNT 202 K/uL (156-360); RBC DIS.WIDTH-CV 16.4 % (11.8-14.6); RBC DIS.WIDTH-SD 55.1 % (39-53); RED BLOOD COUNT 3.14 M/uL (4.00-5.50)
[2017-01-17 06:42] LABS: ALKALINE PHOSPHATASE 63 IU/L (3-129); ANION GAP 3 MEQ/L (2-14); CHLORIDE 106 MEQ/L (99-109); GFR ESTIMATE (CALCULATED) > 59 mL/min/; GLUCOSE 159 mg/dL (70-99); POTASSIUM 5.5 MEQ/L (3.7-5.4); SAMPLE HEMOLYSIS CHECK 0; SAMPLE ICTERIC CHECK 0; SAMPLE LIPEMIA CHECK 0; SODIUM 145 MEQ/L (136-147); TOTAL BILIRUBIN 0.2 MG/DL (0.0-1.0); UREA NITROGEN (BUN) 77 mg/dL (9-23)
[2017-01-17 08:00] VITALS: BP 143/80
[2017-01-17 11:52] LABS: POINT-OF-CARE METER ID UU13113731
[2017-01-17 12:00] VITALS: BP 127/82
[2017-01-17 14:00] VITALS: BP 134/76
[2017-01-17 14:46] LABS: POINT-OF-CARE METER ID UU13113731
[2017-01-17 18:36] LABS: POINT-OF-CARE METER ID UU13113731
[2017-01-17 20:00] VITALS: BP 116/59
[2017-01-17 22:38] LABS: POINT-OF-CARE METER ID UU14174217
[2017-01-18] VITALS (7 sets, daily range): BP systolic 118–131; BP diastolic 71–86
[2017-01-18 02:52] LABS: POINT-OF-CARE METER ID UU14174217
[2017-01-18 04:46] LABS: HEMATOCRIT 29.8 % (38.0-50.0); MCH 27.5 PG (29.0-34.0); MCHC 30.5 G/DL (30.0-36.0); MEAN PLAT.VOLUME 10.7 uM^3 (9.0-12.4); PLATELET COUNT 201 K/uL (156-360); RBC DIS.WIDTH-CV 16.1 % (11.8-14.6); RBC DIS.WIDTH-SD 52.8 % (39-53); RED BLOOD COUNT 3.31 M/uL (4.00-5.50); WHITE BLOOD COUNT 6.3 K/uL (4.1-10.2)
[2017-01-18 04:58] LABS: CHLORIDE 104 mEq/L (99-109); POTASSIUM 4.7 mEq/L (3.7-5.4); SODIUM 145 mEq/L (136-147)
[2017-01-18 05:01] LABS: ANION GAP 6 MEQ/L (2-14)
[2017-01-18 05:02] LABS: GLUCOSE 88 mg/dL (70-99)
[2017-01-18 05:03] LABS: GFR ESTIMATE (CALCULATED) > 59 mL/min/
[2017-01-18 05:04] LABS: UREA NITROGEN (BUN) 77 mg/dL (9-23)
[2017-01-18 05:12] LABS: POINT-OF-CARE METER ID UU14174217
[2017-01-18 06:21] LABS: POINT-OF-CARE METER ID UU14174217
[2017-01-18 09:18] LABS: POINT-OF-CARE METER ID UU14174217
[2017-01-18 11:31] LABS: POINT-OF-CARE METER ID UU14174217
[2017-01-18 14:17] LABS: POINT-OF-CARE METER ID UU14174217
[2017-01-18 18:22] LABS: POINT-OF-CARE METER ID UU14174217
[2017-01-18 22:01] LABS: POINT-OF-CARE METER ID UU14162636
[2017-01-19] VITALS (8 sets, daily range): BP systolic 105–135; BP diastolic 58–81
[2017-01-19 03:18] LABS: POINT-OF-CARE METER ID UU13113731
[2017-01-19 05:26] LABS: HEMATOCRIT 29.8 % (38.0-50.0); MCH 27.1 PG (29.0-34.0); MCHC 30.5 G/DL (30.0-36.0); MCV 88.7 FL (86-99); MEAN PLAT.VOLUME 10.6 uM^3 (9.0-12.4); PLATELET COUNT 213 K/uL (156-360); RBC DIS.WIDTH-CV 15.9 % (11.8-14.6); RBC DIS.WIDTH-SD 51.1 % (39-53); RED BLOOD COUNT 3.36 M/uL (4.00-5.50)
[2017-01-19 05:52] LABS: ANION GAP 7 MEQ/L (2-14); CHLORIDE 101 MEQ/L (99-109); GFR ESTIMATE (CALCULATED) > 59 mL/min/; POTASSIUM 4.2 MEQ/L (3.7-5.4); SAMPLE HEMOLYSIS CHECK 0; SAMPLE ICTERIC CHECK 0; SAMPLE LIPEMIA CHECK 0; SODIUM 144 MEQ/L (136-147); UREA NITROGEN (BUN) 81 mg/dL (9-23)
[2017-01-19 05:53] LABS: GLUCOSE 179 mg/dL (70-99)
[2017-01-19 06:19] LABS: POINT-OF-CARE METER ID UU13113731
[2017-01-19 10:35] LABS: POINT-OF-CARE METER ID UU13113731
[2017-01-19 14:33] LABS: POINT-OF-CARE METER ID UU14174217
[2017-01-19 17:52] LABS: POINT-OF-CARE METER ID UU14174217
[2017-01-19 22:30] LABS: POINT-OF-CARE METER ID UU14174217
[2017-01-20] VITALS: BP 131/75
[2017-01-20 03:29] LABS: POINT-OF-CARE METER ID UU13113748; POINT-OF-CARE USER ID PHATLC
[2017-01-20 04:00] VITALS: BP 124/66
[2017-01-20 05:23] LABS: HEMATOCRIT 30.9 % (38.0-50.0); MCH 27.4 PG (29.0-34.0); MCHC 31.1 G/DL (30.0-36.0); MEAN PLAT.VOLUME 10.8 uM^3 (9.0-12.4); PLATELET COUNT 216 K/uL (156-360); RBC DIS.WIDTH-CV 15.9 % (11.8-14.6); RBC DIS.WIDTH-SD 51.1 % (39-53); RED BLOOD COUNT 3.51 M/uL (4.00-5.50); WHITE BLOOD COUNT 4.4 K/uL (4.1-10.2)
[2017-01-20 05:23] LABS: POINT-OF-CARE METER ID UU13113748; POINT-OF-CARE USER ID PHATLC
[2017-01-20 05:56] LABS: ANION GAP 7 MEQ/L (2-14); CHLORIDE 100 MEQ/L (99-109); GFR ESTIMATE (CALCULATED) > 59 mL/min/; GLUCOSE 194 mg/dL (70-99); POTASSIUM 3.9 MEQ/L (3.7-5.4); SAMPLE HEMOLYSIS CHECK 0; SAMPLE ICTERIC CHECK 0; SAMPLE LIPEMIA CHECK 0; SODIUM 144 MEQ/L (136-147); UREA NITROGEN (BUN) 77 mg/dL (9-23)
[2017-01-20 08:00] VITALS: BP 130/74
[2017-01-20 10:36] LABS: POINT-OF-CARE METER ID UU14174217
[2017-01-20 12:00] VITALS: BP 117/77
[2017-01-20] MEDS ORDERED: Remove Lidoderm Patc TD (13:59)
[2017-01-20] MEDS ORDERED: ALPRAZOLAM0.25 M2 GT (13:59)
[2017-01-20] MEDS ORDERED: QUETIAPINE FUMA50 MG GT (13:59)
[2017-01-20] MEDS ORDERED: ESCITALOPRAM OX10 MG GT (13:59)
[2017-01-20] MEDS ORDERED: LIDOCAINE1 EACH TD (13:59)
[2017-01-20 14:16] LABS: BASE EXCESS 13.1 mEq/L (-3 to +3); BICARBONATE 38.1 mEq/L (22-26); CARBOXY HGB 2.1 % (0-5); METHEMOGLOBIN 1.6 % (0-1.5); PO2 68 mm Hg (80-100); pH 7.49 (7.35-7.45)
[2017-01-20 14:17] LABS: COMMENTS - BLOOD GASES A+C+; DEVICE TC; FI02 28 %; O2 FLOW 10 L/MIN; PCO2 50 mm Hg (35-45); SITE LR
[2017-01-20] MEDS ORDERED: Dextrose 10% in Wate IV (14:28)
[2017-01-20] MEDS ORDERED: [UNRECOGNIZED DRUG - OTHER] GT (14:28)
[2017-01-20] MEDS ORDERED: GLUCAGEN IM/SC (14:28)
[2017-01-20] MEDS ORDERED: GLUCAGEN IM (14:28)
[2017-01-20] MEDS ORDERED: Tylenol GT (14:28)
[2017-01-20] MEDS ORDERED: VANCOMYCIN125 MG/2.5 GT (14:51)
== END 2017-01-20 14:35 | disposition designated cancer center or children's hospital (05) | DRG 4 ==
LOC: EME 10:48 → EDOF 12:35 → 4WEST 12:35 → ENRESERV 12:36 → 4WEST 14:05
PROVIDERS: Emergency Medicine; Internal Medicine Critical Care Medicine; Internal Medicine Pulmonary Disease; Obstetrics & Gynecology; Surgery
PROC: 0BH17EZ Insertion of Endotracheal Airway into Trachea, Via Natural or Artificial Opening (ICD-10-PCS; principal; 2017-01-04)
PROC: 5A1955Z Respiratory Ventilation, Greater than 96 Consecutive Hours (ICD-10-PCS; principal; 2017-01-04)
PROC: 0B110F4 Bypass Trachea to Cutaneous with Tracheostomy Device, Open Approach (ICD-10-PCS; 2017-01-08)
PROC: 0W993ZX Drainage of Right Pleural Cavity, Percutaneous Approach, Diagnostic (ICD-10-PCS; 2017-01-08)
PROC: 0W9B3ZX Drainage of Left Pleural Cavity, Percutaneous Approach, Diagnostic (ICD-10-PCS; 2017-01-08)
PROC: 30233N1 Transfusion of Nonautologous Red Blood Cells into Peripheral Vein, Percutaneous Approach (ICD-10-PCS; 2017-01-11)
PROC: 0W9B3ZZ Drainage of Left Pleural Cavity, Percutaneous Approach (ICD-10-PCS; 2017-01-15)
DX: J96.21 Acute and chronic respiratory failure with hypoxia (principal); J96.22 Acute and chronic respiratory failure with hypercapnia; J69.0 Pneumonitis due to inhalation of food and vomit; J15.1 Pneumonia due to Pseudomonas; Y95 Nosocomial condition; B95.2 Enterococcus as the cause of diseases classified elsewhere; J90 Pleural effusion, not elsewhere classified; Z16.21 Resistance to vancomycin; L89.150 Pressure ulcer of sacral region, unstageable; J98.11 Atelectasis; C18.2 Malignant neoplasm of ascending colon; I81 Portal vein thrombosis; E11.22 Type 2 diabetes mellitus with diabetic chronic kidney disease; E11.65 Type 2 diabetes mellitus with hyperglycemia; E46 Unspecified protein-calorie malnutrition; E87.5 Hyperkalemia; I12.9 Hypertensive chronic kidney disease with stage 1 through stage 4 chronic kidney disease, or unspecified chronic kidney disease; N18.3 Chronic kidney disease, stage 3 (moderate); R62.7 Adult failure to thrive; S91.302A Unspecified open wound, left foot, initial encounter; S31.819A Unspecified open wound of right buttock, initial encounter; X58.XXXA Exposure to other specified factors, initial encounter; R13.10 Dysphagia, unspecified; D63.8 Anemia in other chronic diseases classified elsewhere; D64.89 Other specified anemias; D72.819 Decreased white blood cell count, unspecified; K74.60 Unspecified cirrhosis of liver; F32.9 Major depressive disorder, single episode, unspecified; G40.909 Epilepsy, unspecified, not intractable, without status epilepticus; B19.20 Unspecified viral hepatitis C without hepatic coma; G43.909 Migraine, unspecified, not intractable, without status migrainosus; G89.29 Other chronic pain; E78.5 Hyperlipidemia, unspecified; M62.81 Muscle weakness (generalized); M19.90 Unspecified osteoarthritis, unspecified site; Z79.4 Long term (current) use of insulin; Z79.82 Long term (current) use of aspirin; Z82.49 Family history of ischemic heart disease and other diseases of the circulatory system; Z86.19 Personal history of other infectious and parasitic diseases; Z87.891 Personal history of nicotine dependence; Z90.49 Acquired absence of other specified parts of digestive tract
CPT/HCPCS: 36600; 71010; 74177; 76942; 80047; 80048; 80053; 80076; 81003; 82150; 82306; 82803; 82945; 82948; 83036; 83605; 83615; 83615 91; 83690; 83735; 83880; 84100; 84157; 84484; 85025; 85027; 85610; 85730; 86900; 86901; 86920; 87040; 87070; 87075; 87077; 87081; 87086; 87106; 87116; 87186; 87205; 87206; 87493; 87641; 88108; 88305; 89051; 93005; 94002; 94003; 94640 76; 94644; 94760; 94799; 97530 GO; 97530 GP; 99281; 99285; J0610; J0690; J0692; J1170; J1450; J1650; J1815; J1940; J2250; J2543; J2704; J2920; J3010; J3475; J7030; J7050; P9016; P9047; S0028

== ENCOUNTER 2017-01-25 02:51 | Emergency (ER) | payer OTHER ==
[~2017-01-25] VITALS: Ht 188 cm; Wt 96.0 kg
[~2017-01-25 02:51] MED LIST changes: +ALPRAZOLAM0.25 M2 GT; +AQUAPHOR OINTM105 GM TP; +CALCIDOL8000 UNIT/ GT; +CENTRUM COMPLE1 EACH GT; +Dextrose 10% in Wate IV; +ESCITALOPRAM OX10 MG GT; +FLORASTOR250 MG GT; +GLUCAGEN IM; +GLUCAGEN IM/SC; +LASIX10 MG/ML IV; +LIDOCAINE1 EACH TD; +LIPITOR40 MG GT; +LOPRESSOR25 MG GT; +NOVOLOG PE100 UNITS/ SC; +OXAYDO5 MG GT; +PROTONIX40 M1 GT; +QUESTRAN PACKET4 GM GT; +QUETIAPINE FUMA50 MG GT; +Remove Lidoderm Patc TD; +SALINE MIST45 ML BOTH NARES; +SANTYL30 GM TP; +Tylenol GT; +VANCOMYCIN125 MG/2.5 GT; +[UNRECOGNIZED DRUG - OTHER] GT
[2017-01-25 03:57] LABS: CHLORIDE 98 mEq/L (99-109); PTT 37.9 SEC (25-37)
[2017-01-25 03:59] LABS: GLUCOSE 190 mg/dL (70-99)
[2017-01-25 04:00] LABS: ANION GAP 7 MEQ/L (2-14)
[2017-01-25 04:01] LABS: TOTAL BILIRUBIN 0.4 mg/dL (0.0-1.0)
[2017-01-25 04:03] LABS: ALKALINE PHOSPHATASE 60 IU/L (3-129); GFR ESTIMATE (CALCULATED) > 59 mL/min/
[2017-01-25 04:04] LABS: UREA NITROGEN (BUN) 50 mg/dL (9-23)
[2017-01-25 04:10] LABS: SODIUM 136 mEq/L (136-147)
[2017-01-25 04:25] LABS: INTER. NORMALIZED RATIO 1.2; PROTHROMBIN TIME 13.5 SEC (10.2-12.9)
[2017-01-25 04:42] LABS: EOSINOPHIL (%) 1.9 % (0-5); EOSINOPHIL COUNT 0.1 K/uL (0-0.3); HEMATOCRIT 30.8 % (38.0-50.0); HEMATOLOGY COMMENT 1 SMEAR COMPATIBLE; IMMATURE GRANULOCYTE (%) 0.6 % (0.0-0.7); INSTRUMENT ABS NEUTROPHIL CT 5.5 K/uL; LYMPHOCYTE COUNT 0.6 K/uL (1.0-2.8); MCH 27.5 PG (29.0-34.0); MCHC 31.2 G/DL (30.0-36.0); MCV 88.3 FL (86-99); MEAN PLAT.VOLUME 10.9 uM^3 (9.0-12.4); MONOCYTE (%) 7.7 % (3-12); MONOCYTE COUNT 0.5 K/uL (0-0.8); NEUTROPHIL (%) 81.4 % (45-76); NEUTROPHIL COUNT 5.5 K/uL (1.8-6.4); PLAT.SUFFICIENCY ADEQUATE; RBC DIS.WIDTH-CV 16.8 % (11.8-14.6); RED BLOOD COUNT 3.49 M/uL (4.00-5.50); WHITE BLOOD COUNT 6.7 K/uL (4.1-10.2)
[2017-01-25 04:43] LABS: PLATELET COUNT 144 K/uL (156-360)
[2017-01-25 09:39] VITALS: BP 126/72
== END 2017-01-25 09:40 | disposition designated cancer center or children's hospital (05) ==
LOC: EME → EDBD 02:51 → EME 02:51
PROVIDERS: Emergency Medicine
DX: T81.30XA Disruption of wound, unspecified, initial encounter (principal); R18.8 Other ascites; I12.9 Hypertensive chronic kidney disease with stage 1 through stage 4 chronic kidney disease, or unspecified chronic kidney disease; N18.9 Chronic kidney disease, unspecified; Z93.0 Tracheostomy status; Z99.11 Dependence on respirator [ventilator] status; E78.5 Hyperlipidemia, unspecified; I25.2 Old myocardial infarction; Z93.1 Gastrostomy status; Z86.19 Personal history of other infectious and parasitic diseases; Z87.891 Personal history of nicotine dependence
CPT/HCPCS: 71010; 73060; 74177; 80053; 85025; 85610; 85730; 86900; 86901; 94799; 99281; 99285; J3010; J7030

== ENCOUNTER 2017-01-25 15:26 | Emergency (ER) | payer OTHER ==
[~2017-01-25] VITALS: Ht 182.9 cm; Wt 88.8 kg
[2017-01-25 17:58] LABS: HEMATOCRIT 27.9 % (38.0-50.0); MCHC 31.9 G/DL (30.0-36.0); MCV 87.7 FL (86-99); PLATELET COUNT 149 K/uL (156-360); RBC DIS.WIDTH-CV 16.6 % (11.8-14.6); RED BLOOD COUNT 3.18 M/uL (4.00-5.50); WHITE BLOOD COUNT 7.9 K/uL (4.1-10.2)
[2017-01-25 18:36] LABS: POINT-OF-CARE METER ID UU13113702
[2017-01-25 20:38] VITALS: BP 108/62
== END 2017-01-25 21:07 ==
LOC: EME 15:26
PROVIDERS: Emergency Medicine; Surgery
PROC: 0HQ7XZZ Repair Abdomen Skin, External Approach (ICD-10-PCS; principal; 2017-01-25)
DX: L76.22 Postprocedural hemorrhage of skin and subcutaneous tissue following other procedure (principal); E86.0 Dehydration; I25.2 Old myocardial infarction; I12.9 Hypertensive chronic kidney disease with stage 1 through stage 4 chronic kidney disease, or unspecified chronic kidney disease; N18.9 Chronic kidney disease, unspecified; E78.5 Hyperlipidemia, unspecified; Z79.4 Long term (current) use of insulin; Z87.891 Personal history of nicotine dependence
CPT/HCPCS: 80053; 81003; 82948; 83605; 83690; 85025 91; 85027; 85610; 85730; 86900; 86901; 99281; 99285; J1170

== ENCOUNTER 2017-01-31 09:37 | Emergency (ER) | payer OTHER ==
[~2017-01-31] VITALS: Ht 188 cm; Wt 94.3 kg
[~2017-01-31 09:37] MED LIST changes: -OXAYDO5 MG GT; +OXYCODONE HCL10 MG GT; +OXYCODONE HCL5 MG GT
[2017-01-31 10:19] LABS: HEMATOCRIT 25.3 % (38.0-50.0); MCH 28.3 PG (29.0-34.0); MCHC 32.4 G/DL (30.0-36.0); MCV 87.2 FL (86-99); MEAN PLAT.VOLUME 10.4 uM^3 (9.0-12.4); PLATELET COUNT 123 K/uL (156-360); RBC DIS.WIDTH-SD 50.8 % (39-53); WHITE BLOOD COUNT 6.4 K/uL (4.1-10.2)
[2017-01-31 10:27] LABS: CHLORIDE 92 mEq/L (99-109); INTER. NORMALIZED RATIO 1.2; POTASSIUM 5.5 mEq/L (3.7-5.4); PROTHROMBIN TIME 12.8 SEC (10.2-12.9)
[2017-01-31 10:30] LABS: GLUCOSE 172 mg/dL (70-99); PTT 27.9 SEC (25-37)
[2017-01-31 10:31] LABS: ANION GAP 7 MEQ/L (2-14); SODIUM 127 mEq/L (136-147)
[2017-01-31 10:32] LABS: TOTAL BILIRUBIN 0.5 mg/dL (0.0-1.0)
[2017-01-31 10:33] LABS: ALKALINE PHOSPHATASE 77 IU/L (3-129); GFR ESTIMATE (CALCULATED) > 59 mL/min/
[2017-01-31 10:34] LABS: UREA NITROGEN (BUN) 41 mg/dL (9-23)
[2017-01-31 15:30] VITALS: BP 117/72
[2017-02-01] MEDS ORDERED: FLORASTOR250 MG PO (14:17)
[2017-02-01] MEDS ORDERED: NOVOLOG 10100 UNITS/ SC (14:19)
[2017-02-01] MEDS ORDERED: LANTUS 10100 UNITS/ SC (14:21)
[2017-02-01] MEDS ORDERED: QUETIAPINE FUMA25 MG PO (14:21)
[2017-02-01] MEDS ORDERED: SEROQUEL12.5 MG GT (14:24)
[2017-02-01] MEDS ORDERED: LEXAPRO5 MG/5 ML GT (14:25)
[2017-02-01] MEDS ORDERED: FLORASTOR250 MG GT (14:25)
[2017-02-01] MEDS ORDERED: METOPROLOL SUCC25 MG GT (14:26)
[2017-02-01] MEDS ORDERED: LASIX40 MG GT (14:26)
[2017-02-01] MEDS ORDERED: FEOSOL325 MG GT (14:27)
[2017-02-01] MEDS ORDERED: PROTONIX40 M1 GT (14:28)
[2017-02-01] MEDS ORDERED: ORAZINC220 MG GT (14:29)
[2017-02-01] MEDS ORDERED: ASCORBIC ACID500 M3 GT (14:29)
[2017-02-01] MEDS ORDERED: ATORVASTATIN CA40 MG GT (14:30)
[2017-02-01] MEDS ORDERED: QUESTRAN PACKET4 GM GT (14:31)
[2017-02-01] MEDS ORDERED: ALDACTONE25 MG GT (14:32)
[2017-02-01] MEDS ORDERED: ENOXAPARIN80 MG/0.8 SC (14:32)
[2017-02-01] MEDS ORDERED: ZINC OXYDE PLUS TP (14:35)
== END 2017-01-31 15:42 ==
LOC: EME 09:37
PROVIDERS: Emergency Medicine
DX: R04.2 Hemoptysis (principal); J95.09 Other tracheostomy complication; I12.9 Hypertensive chronic kidney disease with stage 1 through stage 4 chronic kidney disease, or unspecified chronic kidney disease; N18.9 Chronic kidney disease, unspecified; E78.5 Hyperlipidemia, unspecified; Z79.4 Long term (current) use of insulin; Z87.891 Personal history of nicotine dependence; E87.1 Hypo-osmolality and hyponatremia; I25.2 Old myocardial infarction; Z93.0 Tracheostomy status
CPT/HCPCS: 71010; 71275; 80053; 85027; 85610; 85730; 99281; 99285; J3010

== ENCOUNTER 2017-02-01 11:49 | Inpatient (IN) | payer OTHER ==
[~2017-02-01] VITALS: Ht 188 cm; Wt 86.1 kg
[2017-02-01 12:20] LABS: EOSINOPHIL (%) 1.4 % (0-5); EOSINOPHIL COUNT 0.1 K/uL (0-0.3); HEMATOCRIT 23.4 % (38.0-50.0); IMMATURE GRANULOCYTE (%) 0.5 % (0.0-0.7); INSTRUMENT ABS NEUTROPHIL CT 4.5 K/uL; LYMPHOCYTE COUNT 0.5 K/uL (1.0-2.8); MCHC 32.5 G/DL (30.0-36.0); MCV 86.3 FL (86-99); MEAN PLAT.VOLUME 9.9 uM^3 (9.0-12.4); MONOCYTE (%) 10.5 % (3-12); MONOCYTE COUNT 0.6 K/uL (0-0.8); NEUTROPHIL (%) 78.4 % (45-76); NEUTROPHIL COUNT 4.5 K/uL (1.8-6.4); PLATELET COUNT 108 K/uL (156-360); RBC DIS.WIDTH-CV 16.2 % (11.8-14.6); RBC DIS.WIDTH-SD 51.8 % (39-53); RED BLOOD COUNT 2.71 M/uL (4.00-5.50); WHITE BLOOD COUNT 5.7 K/uL (4.1-10.2)
[2017-02-01 12:27] LABS: INTER. NORMALIZED RATIO 1.2; PROTHROMBIN TIME 13.1 SEC (10.2-12.9)
[2017-02-01 12:31] LABS: CHLORIDE 92 mEq/L (99-109); POTASSIUM 5.4 mEq/L (3.7-5.4); SODIUM 128 mEq/L (136-147)
[2017-02-01 12:33] LABS: GLUCOSE 216 mg/dL (70-99)
[2017-02-01 12:35] LABS: ANION GAP 9 MEQ/L (2-14)
[2017-02-01 12:37] LABS: GFR ESTIMATE (CALCULATED) > 59 mL/min/
[2017-02-01 12:38] LABS: UREA NITROGEN (BUN) 40 mg/dL (9-23)
[2017-02-01] MEDS ORDERED: FLORASTOR250 MG PO (14:17)
[2017-02-01] MEDS ORDERED: NOVOLOG 10100 UNITS/ SC (14:19)
[2017-02-01] MEDS ORDERED: QUETIAPINE FUMA25 MG PO (14:21)
[2017-02-01] MEDS ORDERED: LANTUS 10100 UNITS/ SC (14:21)
[2017-02-01] MEDS ORDERED: SEROQUEL12.5 MG GT (14:24)
[2017-02-01] MEDS ORDERED: FLORASTOR250 MG GT (14:25)
[2017-02-01] MEDS ORDERED: LEXAPRO5 MG/5 ML GT (14:25)
[2017-02-01] MEDS ORDERED: LASIX40 MG GT (14:26)
[2017-02-01] MEDS ORDERED: METOPROLOL SUCC25 MG GT (14:26)
[2017-02-01] MEDS ORDERED: FEOSOL325 MG GT (14:27)
[2017-02-01] MEDS ORDERED: PROTONIX40 M1 GT (14:28)
[2017-02-01] MEDS ORDERED: ORAZINC220 MG GT (14:29)
[2017-02-01] MEDS ORDERED: ASCORBIC ACID500 M3 GT (14:29)
[2017-02-01] MEDS ORDERED: ATORVASTATIN CA40 MG GT (14:30)
[2017-02-01] MEDS ORDERED: QUESTRAN PACKET4 GM GT (14:31)
[2017-02-01] MEDS ORDERED: ENOXAPARIN80 MG/0.8 SC (14:32)
[2017-02-01] MEDS ORDERED: ALDACTONE25 MG GT (14:32)
[2017-02-01] MEDS ORDERED: ZINC OXYDE PLUS TP (14:35)
[2017-02-01 16:39] VITALS: BP 119/69
[2017-02-01 17:03] VITALS: BP 112/74
[2017-02-01 17:53] VITALS: BP 114/67
[2017-02-01 18:03] VITALS: BP 122/69
[2017-02-01 19:02] VITALS: BP 111/68
[2017-02-02 03:33] VITALS: BP 124/71
[2017-02-02 05:10] LABS: HEMATOCRIT 23.7 % (38.0-50.0); MCH 29.7 PG (29.0-34.0); MCHC 33.8 G/DL (30.0-36.0); MCV 88.1 FL (86-99); MEAN PLAT.VOLUME 9.9 uM^3 (9.0-12.4); PLATELET COUNT 106 K/uL (156-360); RBC DIS.WIDTH-CV 16.2 % (11.8-14.6); RED BLOOD COUNT 2.69 M/uL (4.00-5.50); WHITE BLOOD COUNT 5.1 K/uL (4.1-10.2)
[2017-02-02 05:36] LABS: ANION GAP 6 MEQ/L (2-14); CHLORIDE 95 MEQ/L (99-109); GFR ESTIMATE (CALCULATED) > 59 mL/min/; GLUCOSE 187 mg/dL (70-99); POTASSIUM 5.3 MEQ/L (3.7-5.4); SAMPLE HEMOLYSIS CHECK 0; SAMPLE ICTERIC CHECK 0; SAMPLE LIPEMIA CHECK 0; SODIUM 129 MEQ/L (136-147); UREA NITROGEN (BUN) 34 mg/dL (9-23)
[2017-02-02 05:50] LABS: METH RESISTANT S AUREUS PCR POSITIVE (NEGATIVE)
[2017-02-02 05:52] LABS: PROBE CHECK PASS
[2017-02-02 13:38] LABS: URIC ACID 5.8 mg/dL (3.1-9.2)
[2017-02-02 17:08] LABS: POINT-OF-CARE METER ID UU13113781
[2017-02-02 20:00] VITALS: BP 119/66
[2017-02-02 21:10] LABS: POINT-OF-CARE METER ID UU13113803
[2017-02-03] VITALS: BP 100/60
[2017-02-03 04:29] VITALS: BP 102/54
[2017-02-03 05:27] LABS: EOSINOPHIL (%) 0 % (0-5); HEMATOCRIT 23.1 % (38.0-50.0); IMMATURE GRANULOCYTE (%) 0.9 % (0.0-0.7); INSTRUMENT ABS NEUTROPHIL CT 2.9 K/uL; LYMPHOCYTE COUNT 0.2 K/uL (1.0-2.8); MCH 27.9 PG (29.0-34.0); MCV 87.2 FL (86-99); MEAN PLAT.VOLUME 9.8 uM^3 (9.0-12.4); MONOCYTE COUNT 0.2 K/uL (0-0.8); NEUTROPHIL (%) 85.1 % (45-76); NEUTROPHIL COUNT 2.9 K/uL (1.8-6.4); PLATELET COUNT 113 K/uL (156-360); RBC DIS.WIDTH-CV 15.9 % (11.8-14.6); RBC DIS.WIDTH-SD 51.5 % (39-53); RED BLOOD COUNT 2.65 M/uL (4.00-5.50); WHITE BLOOD COUNT 3.4 K/uL (4.1-10.2)
[2017-02-03 06:02] LABS: ANION GAP 5 MEQ/L (2-14); CHLORIDE 95 MEQ/L (99-109); GFR ESTIMATE (CALCULATED) > 59 mL/min/; GLUCOSE 201 mg/dL (70-99); POTASSIUM 5.7 MEQ/L (3.7-5.4); SAMPLE HEMOLYSIS CHECK 0; SAMPLE ICTERIC CHECK 0; SAMPLE LIPEMIA CHECK 0; SODIUM 128 MEQ/L (136-147); UREA NITROGEN (BUN) 36 mg/dL (9-23); URIC ACID 5.7 mg/dL (3.1-9.2)
[2017-02-03 19:24] LABS: CHLORIDE 97 mEq/L (99-109); POTASSIUM 5.1 mEq/L (3.7-5.4); SODIUM 132 mEq/L (136-147)
[2017-02-03 19:25] LABS: GLUCOSE 257 mg/dL (70-99)
[2017-02-03 19:27] LABS: ANION GAP 9 MEQ/L (2-14)
[2017-02-03 19:29] LABS: GFR ESTIMATE (CALCULATED) > 59 mL/min/
[2017-02-03 19:30] LABS: UREA NITROGEN (BUN) 37 mg/dL (9-23)
[2017-02-03 20:11] VITALS: BP 120/78
[2017-02-03 21:31] LABS: POINT-OF-CARE METER ID UU13113781
[2017-02-04] VITALS (7 sets, daily range): BP systolic 120–128; BP diastolic 68–78
[2017-02-04 05:32] LABS: EOSINOPHIL (%) 0 % (0-5); HEMATOCRIT 21.5 % (38.0-50.0); IMMATURE GRANULOCYTE (%) 0.6 % (0.0-0.7); INSTRUMENT ABS NEUTROPHIL CT 2.6 K/uL; LYMPHOCYTE COUNT 0.3 K/uL (1.0-2.8); MCV 87.8 FL (86-99); MEAN PLAT.VOLUME 9.7 uM^3 (9.0-12.4); MONOCYTE (%) 10.9 % (3-12); MONOCYTE COUNT 0.4 K/uL (0-0.8); NEUTROPHIL (%) 78.8 % (45-76); NEUTROPHIL COUNT 2.6 K/uL (1.8-6.4); PLATELET COUNT 123 K/uL (156-360); RBC DIS.WIDTH-CV 15.9 % (11.8-14.6); RBC DIS.WIDTH-SD 51.1 % (39-53); RED BLOOD COUNT 2.45 M/uL (4.00-5.50); WHITE BLOOD COUNT 3.3 K/uL (4.1-10.2)
[2017-02-04 05:39] LABS: CHLORIDE 97 mEq/L (99-109); POTASSIUM 5.3 mEq/L (3.7-5.4); SODIUM 130 mEq/L (136-147)
[2017-02-04 05:40] LABS: CHLORIDE 100 mEq/L (99-109); GLUCOSE 273 mg/dL (70-99); POTASSIUM 5.3 mEq/L (3.7-5.4); SODIUM 131 mEq/L (136-147)
[2017-02-04 05:42] LABS: ANION GAP 8 MEQ/L (2-14); GLUCOSE 277 mg/dL (70-99)
[2017-02-04 05:43] LABS: ANION GAP 5 MEQ/L (2-14)
[2017-02-04 05:44] LABS: GFR ESTIMATE (CALCULATED) > 59 mL/min/
[2017-02-04 05:45] LABS: GFR ESTIMATE (CALCULATED) > 59 mL/min/; UREA NITROGEN (BUN) 35 mg/dL (9-23)
[2017-02-04 05:46] LABS: UREA NITROGEN (BUN) 36 mg/dL (9-23)
[2017-02-04 07:38] LABS: POINT-OF-CARE METER ID UU13113781
[2017-02-05 03:43] VITALS: BP 120/70
[2017-02-05 05:01] LABS: EOSINOPHIL (%) 0 % (0-5); HEMATOCRIT 25.2 % (38.0-50.0); IMMATURE GRANULOCYTE (%) 0.5 % (0.0-0.7); INSTRUMENT ABS NEUTROPHIL CT 3.1 K/uL; LYMPHOCYTE COUNT 0.4 K/uL (1.0-2.8); MCH 27.8 PG (29.0-34.0); MCHC 31.7 G/DL (30.0-36.0); MCV 87.5 FL (86-99); MEAN PLAT.VOLUME 9.9 uM^3 (9.0-12.4); MONOCYTE (%) 10.2 % (3-12); MONOCYTE COUNT 0.4 K/uL (0-0.8); NEUTROPHIL (%) 79.6 % (45-76); NEUTROPHIL COUNT 3.1 K/uL (1.8-6.4); PLATELET COUNT 146 K/uL (156-360); RBC DIS.WIDTH-CV 15.9 % (11.8-14.6); RBC DIS.WIDTH-SD 50.6 % (39-53); RED BLOOD COUNT 2.88 M/uL (4.00-5.50); WHITE BLOOD COUNT 3.8 K/uL (4.1-10.2)
[2017-02-05 05:31] LABS: ANION GAP 8 MEQ/L (2-14); CHLORIDE 97 MEQ/L (99-109); GFR ESTIMATE (CALCULATED) > 59 mL/min/; GLUCOSE 312 mg/dL (70-99); POTASSIUM 5.3 MEQ/L (3.7-5.4); SAMPLE HEMOLYSIS CHECK 0; SAMPLE ICTERIC CHECK 0; SAMPLE LIPEMIA CHECK 0; SODIUM 130 MEQ/L (136-147); UREA NITROGEN (BUN) 38 mg/dL (9-23)
[2017-02-05 07:45] LABS: POINT-OF-CARE METER ID UU13113803; POINT-OF-CARE USER ID ENVKC36
[2017-02-05 08:48] VITALS: BP 142/72
[2017-02-05 11:35] LABS: POINT-OF-CARE METER ID UU13113803; POINT-OF-CARE USER ID ENVKC36
[2017-02-05 11:52] VITALS: BP 126/70
[2017-02-05 16:30] LABS: POINT-OF-CARE USER ID ENVKC36
[2017-02-05 17:03] VITALS: BP 150/78
[2017-02-05 18:10] LABS: IRON 45 MCG/DL (35-150)
[2017-02-05 20:29] LABS: POINT-OF-CARE METER ID UU13113803
[2017-02-05 20:55] VITALS: BP 145/78
[2017-02-05 22:59] VITALS: BP 136/74
[2017-02-06 03:03] VITALS: BP 144/95
[2017-02-06 07:10] VITALS: BP 135/69
[2017-02-06 07:15] LABS: HEMATOCRIT 26.2 % (38.0-50.0); MCH 27.8 PG (29.0-34.0); MCHC 31.3 G/DL (30.0-36.0); MCV 88.8 FL (86-99); MEAN PLAT.VOLUME 9.4 uM^3 (9.0-12.4); PLATELET COUNT 166 K/uL (156-360); RBC DIS.WIDTH-CV 15.9 % (11.8-14.6); RBC DIS.WIDTH-SD 51.9 % (39-53); RED BLOOD COUNT 2.95 M/uL (4.00-5.50); WHITE BLOOD COUNT 3.5 K/uL (4.1-10.2)
[2017-02-06 07:39] LABS: EOSINOPHIL (%) 0 % (0-5); IMMATURE GRANULOCYTE (%) 0.6 % (0.0-0.7); INSTRUMENT ABS NEUTROPHIL CT 2.6 K/uL; LYMPHOCYTE COUNT 0.4 K/uL (1.0-2.8); MONOCYTE (%) 11.8 % (3-12); MONOCYTE COUNT 0.4 K/uL (0-0.8); NEUTROPHIL (%) 75.7 % (45-76); NEUTROPHIL COUNT 2.6 K/uL (1.8-6.4)
[2017-02-06 07:43] LABS: ANION GAP 6 MEQ/L (2-14); CHLORIDE 99 MEQ/L (99-109); GFR ESTIMATE (CALCULATED) > 59 mL/min/; GLUCOSE 292 mg/dL (70-99); POTASSIUM 5.1 MEQ/L (3.7-5.4); SAMPLE HEMOLYSIS CHECK 0; SAMPLE ICTERIC CHECK 0; SAMPLE LIPEMIA CHECK 0; SODIUM 134 MEQ/L (136-147); UREA NITROGEN (BUN) 44 mg/dL (9-23)
[2017-02-06 07:56] LABS: POINT-OF-CARE METER ID UU13113781
[2017-02-06 11:14] LABS: POINT-OF-CARE METER ID UU13113781
[2017-02-06 12:00] VITALS: BP 136/72
[2017-02-06 15:05] VITALS: BP 122/88
[2017-02-06 16:29] LABS: POINT-OF-CARE METER ID UU13113781
[2017-02-06 19:45] VITALS: BP 168/86
[2017-02-06 20:59] LABS: POINT-OF-CARE METER ID UU13113698
[2017-02-06 23:07] VITALS: BP 155/86
[2017-02-07 04:04] VITALS: BP 147/83
[2017-02-07 05:54] LABS: HEMATOCRIT 26.8 % (38.0-50.0); MCHC 31.3 G/DL (30.0-36.0); MCV 89.3 FL (86-99); MEAN PLAT.VOLUME 9.3 uM^3 (9.0-12.4); PLATELET COUNT 174 K/uL (156-360); RBC DIS.WIDTH-SD 52.4 % (39-53); WHITE BLOOD COUNT 3.8 K/uL (4.1-10.2)
[2017-02-07 06:16] LABS: ANION GAP 4 MEQ/L (2-14); CHLORIDE 102 MEQ/L (99-109); GFR ESTIMATE (CALCULATED) > 59 mL/min/; GLUCOSE 263 mg/dL (70-99); POTASSIUM 4.8 MEQ/L (3.7-5.4); SAMPLE HEMOLYSIS CHECK 0; SAMPLE ICTERIC CHECK 0; SAMPLE LIPEMIA CHECK 0; SODIUM 135 MEQ/L (136-147); UREA NITROGEN (BUN) 47 mg/dL (9-23)
[2017-02-07 08:30] VITALS: BP 136/65
[2017-02-07 08:31] LABS: POINT-OF-CARE METER ID UU13113781; POINT-OF-CARE USER ID NUTSLF44
[2017-02-07 11:24] VITALS: BP 138/85
[2017-02-07 11:53] LABS: POINT-OF-CARE METER ID UU13113698
[2017-02-07 16:48] VITALS: BP 122/66
[2017-02-07 17:53] LABS: POINT-OF-CARE METER ID UU13113803
[2017-02-07 19:23] VITALS: BP 146/72
[2017-02-07 20:58] LABS: POINT-OF-CARE METER ID UU13113803
[2017-02-07 23:07] VITALS: BP 134/76
[2017-02-08 04:56] VITALS: BP 122/68
[2017-02-08 06:12] LABS: ANION GAP 6 MEQ/L (2-14); CHLORIDE 102 MEQ/L (99-109); GFR ESTIMATE (CALCULATED) > 59 mL/min/; GLUCOSE 236 mg/dL (70-99); POTASSIUM 4.8 MEQ/L (3.7-5.4); SAMPLE HEMOLYSIS CHECK 0; SAMPLE ICTERIC CHECK 0; SAMPLE LIPEMIA CHECK 0; SODIUM 137 MEQ/L (136-147); UREA NITROGEN (BUN) 46 mg/dL (9-23)
[2017-02-08 07:45] LABS: POINT-OF-CARE METER ID UU13113781
[2017-02-08 09:00] VITALS: BP 149/71
[2017-02-08] MEDS ORDERED: PREDNISONE1 MG/ML GT (09:09)
[2017-02-08] MEDS ORDERED: ELIQUIS5 MG GT (09:09)
[2017-02-08] MEDS ORDERED: SPIRONOLACTONE25 MG GT (09:09)
[2017-02-08] MEDS ORDERED: LOPRESSOR25 MG GT (09:09)
[2017-02-08 11:58] LABS: POINT-OF-CARE METER ID UU13113698
[2017-02-08 16:00] VITALS: BP 149/79
[2017-02-08 16:46] LABS: POINT-OF-CARE METER ID UU13113698
[2017-02-08 19:45] VITALS: BP 156/82
[2017-02-08 20:51] LABS: POINT-OF-CARE METER ID UU13113781
[2017-02-09 00:10] VITALS: BP 112/65
[2017-02-09 03:52] VITALS: BP 122/68
[2017-02-09 06:04] LABS: ANION GAP 8 MEQ/L (2-14); CHLORIDE 100 MEQ/L (99-109); GFR ESTIMATE (CALCULATED) > 59 mL/min/; GLUCOSE 193 mg/dL (70-99); POTASSIUM 4.7 MEQ/L (3.7-5.4); SAMPLE HEMOLYSIS CHECK 0; SAMPLE ICTERIC CHECK 0; SAMPLE LIPEMIA CHECK 0; SODIUM 136 MEQ/L (136-147); UREA NITROGEN (BUN) 42 mg/dL (9-23)
[2017-02-09 08:07] LABS: POINT-OF-CARE METER ID UU13113698
[2017-02-09 08:38] VITALS: BP 151/77
[2017-02-09 11:44] VITALS: BP 151/87
[2017-02-09 11:51] LABS: POINT-OF-CARE METER ID UU13113698
[2017-02-09 15:34] VITALS: BP 143/73
[2017-02-09 16:38] LABS: POINT-OF-CARE METER ID UU13113698
[2017-02-09 20:43] LABS: POINT-OF-CARE METER ID UU13113698
[2017-02-09 23:42] VITALS: BP 120/60
[2017-02-10 04:31] VITALS: BP 120/62
[2017-02-10 05:16] LABS: HEMATOCRIT 28.3 % (38.0-50.0); MCH 27.9 PG (29.0-34.0); MCHC 31.4 G/DL (30.0-36.0); MCV 88.7 FL (86-99); MEAN PLAT.VOLUME 9.1 uM^3 (9.0-12.4); PLATELET COUNT 198 K/uL (156-360); RBC DIS.WIDTH-CV 16.5 % (11.8-14.6); RBC DIS.WIDTH-SD 53.7 % (39-53); RED BLOOD COUNT 3.19 M/uL (4.00-5.50); WHITE BLOOD COUNT 4.2 K/uL (4.1-10.2)
[2017-02-10 07:39] LABS: POINT-OF-CARE METER ID UU13113781
[2017-02-10 08:00] VITALS: BP 138/80
[2017-02-10 12:00] VITALS: BP 130/72
[2017-02-10 16:00] VITALS: BP 128/72
[2017-02-10 21:14] LABS: POINT-OF-CARE METER ID UU13113698
[2017-02-11 07:15] VITALS: BP 112/78
[2017-02-11 08:04] LABS: POINT-OF-CARE METER ID UU13113781; POINT-OF-CARE USER ID ENVKC36
[2017-02-11 11:29] LABS: POINT-OF-CARE METER ID UU14174216
[2017-02-11 11:30] VITALS: BP 110/80
[2017-02-11 15:00] VITALS: BP 117/75
[2017-02-11 17:13] LABS: POINT-OF-CARE METER ID UU13113781
[2017-02-11 19:22] VITALS: BP 143/82
[2017-02-11 21:20] LABS: POINT-OF-CARE METER ID UU13113781
[2017-02-11 23:49] VITALS: BP 142/74
[2017-02-12 07:10] VITALS: BP 130/82
[2017-02-12 11:55] VITALS: BP 127/78
[2017-02-12 15:10] VITALS: BP 118/72
[2017-02-12] MEDS ORDERED: ADVAIR HFA120 INHALA IH (16:03)
== END 2017-02-12 19:00 | disposition designated cancer center or children's hospital (05) | DRG 204 ==
LOC: EME 11:49 → EDOF 14:14 → 4EAST 14:14 → ENRESERV 14:15 → EDOF 14:49 → 4EAST 17:19
PROVIDERS: Emergency Medicine; Internal Medicine; Internal Medicine Nephrology
PROC: 30233N1 Transfusion of Nonautologous Red Blood Cells into Peripheral Vein, Percutaneous Approach (ICD-10-PCS; 2017-02-01)
PROC: 3E0436Z Introduction of Nutritional Substance into Central Vein, Percutaneous Approach (ICD-10-PCS; 2017-02-01)
PROC: 0W9B3ZZ Drainage of Left Pleural Cavity, Percutaneous Approach (ICD-10-PCS; principal; 2017-02-03)
PROC: 0B21XFZ Change Tracheostomy Device in Trachea, External Approach (ICD-10-PCS; principal; 2017-02-03)
PROC: 0W9B3ZZ Drainage of Left Pleural Cavity, Percutaneous Approach (ICD-10-PCS; 2017-02-10)
DX: R04.2 Hemoptysis (principal); M72.6 Necrotizing fasciitis; J95.09 Other tracheostomy complication; A04.7 Enterocolitis due to Clostridium difficile; J90 Pleural effusion, not elsewhere classified; K76.6 Portal hypertension; J96.11 Chronic respiratory failure with hypoxia; R78.81 Bacteremia; L03.90 Cellulitis, unspecified; R18.8 Other ascites; E22.2 Syndrome of inappropriate secretion of antidiuretic hormone; D62 Acute posthemorrhagic anemia; E87.0 Hyperosmolality and hypernatremia; J98.11 Atelectasis; D69.6 Thrombocytopenia, unspecified; E55.9 Vitamin D deficiency, unspecified; K31.89 Other diseases of stomach and duodenum; L89.159 Pressure ulcer of sacral region, unspecified stage; L97.509 Non-pressure chronic ulcer of other part of unspecified foot with unspecified severity; F41.9 Anxiety disorder, unspecified; F32.9 Major depressive disorder, single episode, unspecified; M54.12 Radiculopathy, cervical region; G89.29 Other chronic pain; E87.70 Fluid overload, unspecified; K21.9 Gastro-esophageal reflux disease without esophagitis; I12.9 Hypertensive chronic kidney disease with stage 1 through stage 4 chronic kidney disease, or unspecified chronic kidney disease; E78.5 Hyperlipidemia, unspecified; E87.5 Hyperkalemia; B95.7 Other staphylococcus as the cause of diseases classified elsewhere; G40.909 Epilepsy, unspecified, not intractable, without status epilepticus; E86.1 Hypovolemia; H53.2 Diplopia; J20.9 Acute bronchitis, unspecified; E11.22 Type 2 diabetes mellitus with diabetic chronic kidney disease; K74.60 Unspecified cirrhosis of liver; N18.3 Chronic kidney disease, stage 3 (moderate); E11.40 Type 2 diabetes mellitus with diabetic neuropathy, unspecified; E11.21 Type 2 diabetes mellitus with diabetic nephropathy; E11.65 Type 2 diabetes mellitus with hyperglycemia; M47.9 Spondylosis, unspecified; R16.1 Splenomegaly, not elsewhere classified; Z93.0 Tracheostomy status; I25.2 Old myocardial infarction; Z79.01 Long term (current) use of anticoagulants; Z79.899 Other long term (current) drug therapy; Z85.038 Personal history of other malignant neoplasm of large intestine; Z86.74 Personal history of sudden cardiac arrest; Z90.49 Acquired absence of other specified parts of digestive tract; Z87.891 Personal history of nicotine dependence; Z93.1 Gastrostomy status; Z79.4 Long term (current) use of insulin
CPT/HCPCS: 31720; 71010; 71020; 71275; 74177; 74230; 76604; 76942; 80048; 80048 91; 80053; 80069; 80202; 82040; 82607; 82746; 82948; 83540; 83735; 83935; 84300; 84466; 84550; 85025; 85027; 85610; 85730; 86850; 86900; 86901; 86920; 87040; 87077; 87081; 87186; 87493; 87506; 87641; 87801; 92611 GN; 94010; 94640; 94640 76; 94799; 99202; 99281; 99284; 99285; J0692; J1170; J1815; J3010; J3370; J7030; J7050; J7512; P9016; P9047; S0028

== ENCOUNTER → 2017-02-24 | Outpatient (CLI) | payer OTHER ==
[~2017-02-24] MED LIST changes: +ACTIGALL300 MG GT; +ADVAIR HFA120 INHALA IH; +ALDACTONE25 MG GT; +ASCORBIC ACID500 M3 GT; +ATORVASTATIN CA40 MG GT; +ELIQUIS5 MG GT; +ENOXAPARIN80 MG/0.8 SC; +FEOSOL325 MG GT; +FERRO-TIME325 MG GT; +LASIX40 MG GT; +LEXAPRO5 MG/5 ML GT; +LEXAPRO5 MG/5 ML PO; +METOPROLOL SUCC25 MG GT; +ONE DAILY MULT1 EACH PO; +ORAZINC220 MG GT; +OXYCONTIN10 MG GT; +PREDNISONE1 MG/ML GT; +QUETIAPINE FUMA25 MG PO; +ROXICODONE5 MG PO; +SEROQUEL12.5 MG GT; +VITAMIN D22000 UNIT GT; +ZINC OXYDE PLUS TP
== END ==
LOC: AMB 10:30
DX: S31.109A Unspecified open wound of abdominal wall, unspecified quadrant without penetration into peritoneal cavity, initial encounter (principal)
CPT/HCPCS: 99213

== ENCOUNTER → 2017-02-26 | Outpatient (CLI) | payer OTHER | LOC: RAD 11:00 | PROC: 0W9G3ZZ Drainage of Peritoneal Cavity, Percutaneous Approach (ICD-10-PCS; principal; 2017-02-26) | DX: I25.10 Atherosclerotic heart disease of native coronary artery without angina pectoris (principal); R91.8 Other nonspecific abnormal finding of lung field | CPT/HCPCS: 71250; 76942 ==

== ENCOUNTER → 2017-03-15 | Outpatient (CLI) | payer OTHER | LOC: RAD 11:09 | DX: R13.13 Dysphagia, pharyngeal phase (principal) | CPT/HCPCS: 74230; 92611 GN; G8996 GN CJ; G8997 GN CJ; G8998 GN CJ ==

== ENCOUNTER → 2017-03-17 | Outpatient (CLI) | payer OTHER | LOC: AMB 09:00 | DX: S31.109D Unspecified open wound of abdominal wall, unspecified quadrant without penetration into peritoneal cavity, subsequent encounter (principal); L89.150 Pressure ulcer of sacral region, unstageable | CPT/HCPCS: 99211 ==

== ENCOUNTER 2017-09-07 13:45 | Inpatient (IN) | payer OTHER ==
[~2017-09-07] VITALS: Ht 188 cm; Wt 99.5 kg
[~2017-09-07 13:45] MED LIST changes: -ACTIGALL300 MG GT; +ACTIGALL300 MG PO; +LASIX40 MG PO; -OXYCONTIN10 MG GT
[2017-09-07 14:20] LABS: BASOPHIL (%) 0.4 % (0-1); EOSINOPHIL (%) 1.8 % (0-5); EOSINOPHIL COUNT 0.1 K/uL (0-0.3); HEMATOCRIT 32.2 % (38.0-50.0); HEMOGLOBIN 10.6 G/DL (12.5-16.6); IMMATURE GRANULOCYTE (%) 0.2 % (0.0-0.7); LYMPHOCYTE (%) 10.9 % (15-42); LYMPHOCYTE COUNT 0.6 K/uL (1.0-2.8); MCH 30.5 PG (29.0-34.0); MCHC 32.9 G/DL (30.0-36.0); MCV 92.8 FL (86-99); MONOCYTE (%) 8.4 % (3-12); MONOCYTE COUNT 0.4 K/uL (0-0.8); NEUTROPHIL (%) 78.3 % (45-76); PLATELET COUNT 107 K/uL (156-360); RBC DIS.WIDTH-CV 14.6 % (11.8-14.6); RBC DIS.WIDTH-SD 49.3 % (39-53); RED BLOOD COUNT 3.47 M/uL (4.00-5.50); WHITE BLOOD COUNT 5.1 K/uL (4.1-10.2)
[2017-09-07 14:28] LABS: CHLORIDE 114 mEq/L (99-109); POTASSIUM 5.2 mEq/L (3.7-5.4); SODIUM 144 mEq/L (136-147)
[2017-09-07 14:30] LABS: GLUCOSE 160 mg/dL (70-99)
[2017-09-07 14:34] LABS: GFR ESTIMATE (CALCULATED) 37 mL/min/ (58.99-99999); UREA NITROGEN (BUN) 38 mg/dL (9-23)
[2017-09-07 15:21] LABS: INTER. NORMALIZED RATIO 1.2
[2017-09-07 15:48] LABS: APPEARANCE CLEAR ((CLEAR)); BILIRUBIN NEGATIVE; BLOOD MODERATE; COLOR YELLOW ((YELLOW)); GLUCOSE (STRIP) 150; KETONES NEGATIVE; LEUKOCYTES NEGATIVE; NITRITE NEGATIVE; PROTEIN (STRIP) >=500; SPECIFIC GRAVITY 1.023 (1.000-1.030); UROBILINOGEN 0.2 MG/DL (0.2-1.0)
[2017-09-07 15:57] LABS: BACTERIA RARE /HPF; EPITHELIAL CELLS NONE SEEN /HPF; HYALINE CASTS 0-5 /LPF; MUCUS TRACE /LPF; RED BLOOD CELLS 30-40 /HPF (0-5); UCUL ADDED? NO; WHITE BLOOD CELLS 0-5 /HPF (0-5)
[2017-09-07] MEDS ORDERED: XARELTO20 MG PO (18:00)
[2017-09-07] MEDS ORDERED: ALDACTONE25 MG PO (18:01)
[2017-09-07] MEDS ORDERED: MORPHABOND ER30 MG PO (18:03)
[2017-09-07] MEDS ORDERED: CHOLESTYRAMINE378 GM PO (18:06)
[2017-09-07] MEDS ORDERED: CARDIZEM30 MG PO (18:07)
[2017-09-07] MEDS ORDERED: AMBIEN5 MG PO (18:08)
[2017-09-07] MEDS ORDERED: LEXAPRO20 MG PO (18:12)
[2017-09-07] MEDS ORDERED: LIPITOR40 MG PO (18:13)
[2017-09-07] MEDS ORDERED: HUMALOG100 UNIT/1 SC (18:16)
[2017-09-07] MEDS ORDERED: PROAIR HFA8.5 GM IH (18:17)
[2017-09-07 19:39] VITALS: BP 156/82
[2017-09-07 20:51] LABS: ALBUMIN 2.5 g/dL (3.2-4.8)
[2017-09-07 20:54] LABS: TOTAL PROTEIN 7.6 g/dL (6.4-8.3)
[2017-09-07 20:56] LABS: TOTAL BILIRUBIN 0.8 mg/dL (0.0-1.0)
[2017-09-07 20:57] LABS: ALKALINE PHOSPHATASE 75 IU/L (3-129)
[2017-09-07 21:00] LABS: ALT (GPT) 11 IU/L (3-49); AST (GOT) 21 IU/L (2-34); DIRECT BILIRUBIN 0.4 mg/dL (0.0-0.3)
[2017-09-07 21:01] LABS: LIPASE 27 U/L (1.0-51.0)
[2017-09-07 23:31] VITALS: BP 137/65
[2017-09-08 05:24] LABS: HEMATOCRIT 28.1 % (38.0-50.0); HEMOGLOBIN 8.9 G/DL (12.5-16.6); MCH 29.3 PG (29.0-34.0); MCHC 31.7 G/DL (30.0-36.0); MCV 92.4 FL (86-99); PLATELET COUNT 101 K/uL (156-360); RBC DIS.WIDTH-CV 14.6 % (11.8-14.6); RBC DIS.WIDTH-SD 49.8 % (39-53); RED BLOOD COUNT 3.04 M/uL (4.00-5.50); WHITE BLOOD COUNT 4.4 K/uL (4.1-10.2)
[2017-09-08 05:37] VITALS: BP 134/83
[2017-09-08 05:46] LABS: ALBUMIN 2.2 G/DL (3.2-4.8); ALKALINE PHOSPHATASE 55 IU/L (3-129); ALT (GPT) 7 IU/L (3-49); AST (GOT) 15 IU/L (2-34); CHLORIDE 113 MEQ/L (99-109); CREATININE 1.9 MG/DL (0.6-1.3); GFR ESTIMATE (CALCULATED) 39 mL/min/ (58.99-99999); GLUCOSE 122 mg/dL (70-99); POTASSIUM 5.2 MEQ/L (3.7-5.4); SODIUM 140 MEQ/L (136-147); TOTAL BILIRUBIN 0.7 MG/DL (0.0-1.0); TOTAL PROTEIN 6.4 G/DL (6.4-8.3); UREA NITROGEN (BUN) 34 mg/dL (9-23)
[2017-09-08 08:31] VITALS: BP 130/75
[2017-09-08 11:02] LABS: HEMOGLOBIN A1c (GLYCOHEMOGLOB) 6.5 % (Below 5.7)
[2017-09-08 13:40] VITALS: BP 145/93
[2017-09-08 14:27] LABS: TROP-I INTERPRETATION NEGATIVE; TROPONIN-I 0.03 ng/mL (0.0-0.30)
[2017-09-08 15:37] VITALS: BP 148/88
[2017-09-08 20:30] VITALS: BP 135/93
[2017-09-08 20:30] LABS: TROP-I INTERPRETATION NEGATIVE; TROPONIN-I 0.03 ng/mL (0.0-0.30)
[2017-09-08 23:29] VITALS: BP 140/68
[2017-09-09 01:38] LABS: TROP-I INTERPRETATION NEGATIVE; TROPONIN-I 0.03 ng/mL (0.0-0.30)
[2017-09-09 04:25] VITALS: BP 140/78
[2017-09-09 07:42] VITALS: BP 140/88
[2017-09-09 10:43] VITALS: BP 134/72
[2017-09-09 15:54] VITALS: BP 130/69
[2017-09-09 19:44] VITALS: BP 120/78
[2017-09-09 23:41] VITALS: BP 140/68
[2017-09-10] VITALS (7 sets, daily range): BP systolic 120–150; BP diastolic 62–80
[2017-09-11 03:16] VITALS: BP 127/76
[2017-09-11 08:02] VITALS: BP 146/78
[2017-09-11 11:17] LABS: CREATININE 1.9 MG/DL (0.6-1.3)
[2017-09-11 11:18] VITALS: BP 152/78
[2017-09-11 15:34] VITALS: BP 158/68
[2017-09-11 19:24] VITALS: BP 120/78
[2017-09-11 23:28] VITALS: BP 126/75
[2017-09-12 03:13] VITALS: BP 140/82
[2017-09-12 05:59] LABS: EOSINOPHIL (%) 2.2 % (0-5); EOSINOPHIL COUNT 0.1 K/uL (0-0.3); HEMATOCRIT 29.4 % (38.0-50.0); HEMOGLOBIN 9.7 G/DL (12.5-16.6); IMMATURE GRANULOCYTE (%) 0.2 % (0.0-0.7); LYMPHOCYTE COUNT 0.7 K/uL (1.0-2.8); MCH 29.4 PG (29.0-34.0); MCV 89.1 FL (86-99); MONOCYTE (%) 10.9 % (3-12); MONOCYTE COUNT 0.4 K/uL (0-0.8); NEUTROPHIL (%) 67.7 % (45-76); NEUTROPHIL COUNT 2.7 K/uL (1.8-6.4); PLATELET COUNT 108 K/uL (156-360); RBC DIS.WIDTH-CV 14.2 % (11.8-14.6); RBC DIS.WIDTH-SD 46.4 % (39-53); WHITE BLOOD COUNT 4.1 K/uL (4.1-10.2)
[2017-09-12 06:27] LABS: CHLORIDE 107 MEQ/L (99-109); CREATININE 1.9 MG/DL (0.6-1.3); GFR ESTIMATE (CALCULATED) 39 mL/min/ (58.99-99999); GLUCOSE 148 mg/dL (70-99); POTASSIUM 4.2 MEQ/L (3.7-5.4); SODIUM 136 MEQ/L (136-147); UREA NITROGEN (BUN) 33 mg/dL (9-23)
[2017-09-12 08:25] VITALS: BP 136/74
[2017-09-12] MEDS ORDERED: LINEZOLID600 MG PO (09:44)
[2017-09-12] MEDS ORDERED: FAMOTIDINE20 MG PO (09:48)
[2017-09-12] MEDS ORDERED: FLORASTOR250 MG PO (09:48)
[2017-09-12] MEDS ORDERED: LOPRESSOR25 MG PO (09:49)
[2017-09-12 11:29] VITALS: BP 138/74
== END 2017-09-12 13:58 | disposition home or self-care (01) | DRG 871 ==
LOC: EME 13:45 → EDOF 16:29 → 3EAST 16:29 → ENRESERV 16:33 → 3EAST 17:50
PROVIDERS: Family Medicine; Internal Medicine
PROC: 0W9G3ZZ Drainage of Peritoneal Cavity, Percutaneous Approach (ICD-10-PCS; principal; 2017-09-07)
DX: A41.02 Sepsis due to Methicillin resistant Staphylococcus aureus (principal); L89.153 Pressure ulcer of sacral region, stage 3; R18.8 Other ascites; E11.22 Type 2 diabetes mellitus with diabetic chronic kidney disease; E11.40 Type 2 diabetes mellitus with diabetic neuropathy, unspecified; E11.21 Type 2 diabetes mellitus with diabetic nephropathy; B18.2 Chronic viral hepatitis C; K74.60 Unspecified cirrhosis of liver; I50.9 Heart failure, unspecified; T80.211A Bloodstream infection due to central venous catheter, initial encounter; S22.42XD Multiple fractures of ribs, left side, subsequent encounter for fracture with routine healing; E78.5 Hyperlipidemia, unspecified; I13.0 Hypertensive heart and chronic kidney disease with heart failure and stage 1 through stage 4 chronic kidney disease, or unspecified chronic kidney disease; N18.3 Chronic kidney disease, stage 3 (moderate); J98.11 Atelectasis; G89.29 Other chronic pain; D64.9 Anemia, unspecified; K21.9 Gastro-esophageal reflux disease without esophagitis; G40.909 Epilepsy, unspecified, not intractable, without status epilepticus; M16.0 Bilateral primary osteoarthritis of hip; Z86.718 Personal history of other venous thrombosis and embolism; Z93.1 Gastrostomy status; Z90.49 Acquired absence of other specified parts of digestive tract; Z87.891 Personal history of nicotine dependence; Z80.1 Family history of malignant neoplasm of trachea, bronchus and lung; Z86.14 Personal history of Methicillin resistant Staphylococcus aureus infection; Z79.01 Long term (current) use of anticoagulants; Z86.74 Personal history of sudden cardiac arrest; Z86.19 Personal history of other infectious and parasitic diseases; Z85.038 Personal history of other malignant neoplasm of large intestine; Z83.3 Family history of diabetes mellitus; Z82.49 Family history of ischemic heart disease and other diseases of the circulatory system; I25.2 Old myocardial infarction
CPT/HCPCS: 49083; 71046; 71100; 73502; 74176; 80048; 80053; 80076; 80202; 81003; 82565; 82948; 83036; 83605; 83690; 83880; 84484; 85025; 85027; 85610; 85730; 87040; 87070; 87075; 87077; 87186; 87205; 87493; 87506; 87801; 89051; 93005; 93306; 93971; 94640; 99202; 99281; 99285; A6021; A6214; J0696; J1644; J1815; J1940; J2405; J3370